=== PATIENT | male | born 1955 | race Caucasian/White ===

== ENCOUNTER 2017-01-14 06:31 | Day surgery (SDC) | payer BC ==
[2017-01-12 08:27] VITALS: BMI 44.7
[~2017-01-14 06:31] MED LIST: ALPRAZolam 0.25 MG TAB PO PRN; ALPRAZolam 0.5 MG TAB PO PRN; ASPIRIN 325 MG TAB PO STA; ATORVASTATIN 80 MG TAB PO STA; NITROGLYCERIN SL TABS 0.4 MG TAB SUBLINGUAL PRN; SODIUM CHLORIDE 0.9% 1,000 ML in EMPTY BAG 1 BAG IV ONE
[2017-01-14 06:59] LABS: Glucose,Whole Blood 166 mg/dL (75-99)
[2017-01-14 07:30] VITALS: PULSE 67; TEMP 98.6
[2017-01-14] MEDS ORDERED: HEPARIN SODIUM 1,000 UNIT/ML VIAL ONE (07:42)
[2017-01-14] MEDS ORDERED: VERAPAMIL 2.5 MG/ML 2 ML AMP ONE (07:42)
[2017-01-14] MEDS ORDERED: MIDAZOLAM 2 MG/2 ML VIAL ONE (07:42)
[2017-01-14] MEDS ORDERED: SODIUM CHLORIDE 0.9% (PF) 10 ML VIAL ONE (07:42)
[2017-01-14] MEDS ORDERED: LIDOCAINE 2% INJ 20 MG/ML (20 ML MDV) ONE (07:43)
[2017-01-14] MEDS ORDERED: diphenhydrAMINE 50 MG/ML 1 ML VIAL ONE (07:43)
[2017-01-14] MEDS ORDERED: MIDAZOLAM 2 MG/2 ML VIAL IVP ONE (07:58)
[2017-01-14] MEDS ORDERED: LIDOCAINE 2% INJ 20 MG/ML SQ ONE (07:59)
[2017-01-14] MEDS ORDERED: VERAPAMIL SYRINGE (5 MG/10 ML) INTRAARTER ONE ×2 (08:01→08:41)
[2017-01-14] MEDS ORDERED: HEPARIN SODIUM 1,000 UNIT/ML VIAL IV ONE (08:03)
[2017-01-14] MEDS ORDERED: SODIUM CHLORIDE 0.9% 1,000 ML IV ONE (08:05)
[2017-01-14] MEDS ORDERED: HYDROmorphone 2 MG/ML 1 ML SYRINGE ONE ×2 (08:24→08:25)
[2017-01-14] MEDS ORDERED: BIVALIRUDIN BOLUS 250 MG/50 ML IV ONE (08:24)
[2017-01-14] MEDS ORDERED: HYDROmorphone 2 MG/ML 1 ML SYRINGE IVP ONE (08:26)
[2017-01-14] MEDS ORDERED: IOHEXOL 350 MG/ML 100 ML BOTTLE INJ ONE (08:43)
[2017-01-14] MEDS ORDERED: RX INFO: IV CONTRAST WAS GIVEN 1 EACH MISC MISCELLANE PRN (08:50)
[2017-01-14] MEDS ORDERED: BIVALIRUDIN 250 MG in SODIUM CHLORIDE 0.9% 50 ML IV ONE (08:50)
[2017-01-14] MEDS ORDERED: SODIUM CHLORIDE 0.9% 1,000 ML IV SCH (09:00)
--- NOTE | 2017-01-14 09:08 | LTR ---
January 14, 2017 GUY NICOLE MD RE: Reynaldo Rico Dear Guy: Mr. Reynaldo Rico underwent a heart catheterization which showed severe disease involving the distal left main coronary artery with severe in-stent restenosis involving the proximal LAD as well. With the location of the disease, I recommended coronary artery bypass grafting and the patient will be evaluated as an outpatient for CABG. I want to thank you for allowing us to participate in his care and please do not hesitate to call if you have any questions or concerns. Sincerely, JOSIANE RAGSDALE MD
[2017-01-14 09:17] LABS: Glucose,Whole Blood 171 mg/dL (75-99)
--- NOTE | 2017-01-14 09:17 | CC ---
DATE OF SERVICE: 01/14/2017 PERFORMING PHYSICIAN: Darshan Lopez MD, customs brokerage agent. PROCEDURE PERFORMED: 1. Selective right and left coronary angiogram. 2. Intravascular ultrasound (IVUS) of the left main coronary artery. INDICATION: This is a pleasant 61-year-old gentleman with a past medical history significant for coronary artery disease and prior stenting of the LAD and RCA in the past and diabetes was experiencing exertional dyspnea. He underwent a stress test as an outpatient, which showed lateral ischemia. In view of that, he was advised to undergo a heart catheterization. APPROACH: Right radial artery. COMPLICATIONS: None. LEVEL OF SEDATION: Moderate with sedation length of about 45 minutes. PROCEDURE DESCRIPTION: After obtaining an informed consent, the patient was brought to the cardiac nitriles lab technician. Right radial artery was cannulated using micropuncture technique and micropuncture wire passed easily. Then I placed 6-Wolof sheath in the right radial artery. Subsequently, I did selective right and left coronary angiogram using JR4 and JL3.5 catheters. After that, I decided to do an IVUS of the left main. Please see a separate paragraph for that. SELECTIVE CORONARY ANGIOGRAM: 1. The right coronary artery is a large-caliber vessel and it is a dominant vessel. The proximal RCA appeared to be angiographically normal. The mid RCA is stented and the stent is patent. The RCA distally appeared to have mild disease only and bifurcates into PDA and PLV branches; both are angiographically normal. 2. The left main is a large-caliber left main. The distal left main appeared to be diseased in the range of 50% to 60%. The left main bifurcates into the left circumflex, ramus intermedius, and left anterior descending artery. 3. The left circumflex: The proximal left circumflex appeared to have mild disease only. The mid left circumflex appeared to have mild disease only as well and gives rises into the first OM branch, which is a large-caliber vessel, seems to be angiographically normally. The circumflex distally appeared to be angiographically normal. 4. The ramus intermedius is a medium caliber vessel with mild disease in the proximal portion. 5. Left anterior descending artery: The proximal left anterior descending artery by the bifurcation of the first diagonal appeared to have severe in-stent restenosis in the range of 80%. The mid LAD appeared to have mild disease only and this is by the bifurcation of the second diagonal, which is a large-caliber vessel with disease proximally in the range of 80% to 90%. The LAD distally appeared to be angiographically normal. INTRAVASCULAR ULTRASOUND (IVUS) OF THE LEFT MAIN: Anticoagulation was initiated using Angiomax. Subsequently, I did engage the left main using JL3.5 guiding catheter. I wired the left main using a whisper wire, and wire was pushed to the LAD. I did intravascular ultrasound (IVUS) of the left main using manual pull back. The minimal lumen area of the left main came in to be a 4.8 sq mm. CONCLUSION: 1. Patent stent in the mid right coronary artery. 2. Severe distal left main coronary artery disease. 3. Severe in-stent restenosis involving the proximal left anterior descending artery. 4. Severe disease involving the second diagonal branch of the left anterior descending artery, which is a good caliber vessel. 5. Mild disease involving the left circumflex. POSTPROCEDURE MANAGEMENT: The patient will be evaluated for coronary artery bypass grafting.
[2017-01-14 10:51] LABS: Basophils % (A) 1 %; CH 31.2; CHCM 33.3; Eosinophils # (A) 0.1 k/uL (0-0.7); Eosinophils % (A) 3 %; HCT 37.1 % (39.0-53.0); HGB 12.6 gm/dL (13.0-17.5); Luc # (Auto) 0.18; Luc % (Auto) 4; Lymphocytes # (A) 1.5 k/uL (1.0-4.8); Lymphocytes % (A) 31 %; MCHC 33.9 g/dL (31.0-37.0); MCV 94.3 fL (80.0-100.0); Mean Platelet Volume 7.6; Monocytes # (A) 0.3 k/uL (0-1.0); Monocytes % (A) 6 %; Neutrophils # (A) 2.6 k/uL (1.3-7.7); Neutrophils % (A) 56 %; RBC 3.93 m/uL (4.30-5.90); RDW 13.8 % (11.5-15.5); WBC 4.7 k/uL (3.8-10.6); WBC (Perox) 5.08
[2017-01-14 10:53] LABS: ALT 38 U/L (21-72); AST 28 U/L (17-59); Alkaline Phosphatase 83 U/L (38-126); Anion Gap 11 mmol/L; Blood Urea Nitrogen 30 mg/dL (9-20); Calcium 9.2 mg/dL (8.4-10.2); Carbon Dioxide 28 mmol/L (22-30); Chloride 100 mmol/L (98-107); Cholesterol 136 mg/dL (<200); Glucose 267 mg/dL (74-99); HDL Cholesterol 37 mg/dL (40-60); Magnesium 1.5 mg/dL (1.6-2.3); Non-African American GFR(MDRD) >60 (>60 ml/min/1.73 sqM); Sodium 139 mmol/L (137-145); Total Bilirubin 0.7 mg/dL (0.2-1.3); Total Protein 7.2 g/dL (6.3-8.2); Triglycerides 213 mg/dL (<150)
[2017-01-14 10:54] LABS: INR 1.4 (<1.1); Partial Thromboplastin Time 51.9 sec (22.0-30.0); Prothrombin Time 13.7 sec (9.0-12.0)
[2017-01-14 11:22] LABS: Hepatitis B Surface Ag Index 0.08
[2017-01-14 11:26] LABS: Appearance,Urine Clear (Clear); Bilirubin,Urine Negative (Negative); Glucose,Urine (UA) 2+ (Negative); Ketones,Urine Negative (Negative); Leukocyte Esterase,Urine Negative (Negative); Nitrite,Urine Negative (Negative); PH, Urine 5.5 (5.0-8.0); Protein,Urine Negative (Negative); Specific Gravity,Urine 1.031 (1.001-1.035); UA Billing (MACRO vs. MICRO) CHEM; Urobilinogen,Urine <2.0 mg/dL (<2.0)
[2017-01-14 11:28] LABS: Hepatitis B Core IgM Index 0.04
[2017-01-14 11:39] LABS: Hepatitis C Virus IgG Index 0.73
[2017-01-14 11:46] LABS: Hepatitis C Virus IgG Ab Negative (Negative)
[2017-01-14] MEDS ORDERED: INSULN ASP PRT/INSULIN ASPART 100 UNIT/ML 10 ML VIAL SQ ONE (12:26)
[2017-01-14 12:27] LABS: Glucose,Whole Blood 261 mg/dL (75-99)
--- NOTE | 2017-01-14 12:50 | US ---
EXAMINATION TYPE: US carotid duplex BILAT DATE OF EXAM: 01/14/2017 12:32 PM COMPARISON: NONE CLINICAL HISTORY: pre-op cardiac surgery. EXAM MEASUREMENTS: RIGHT: Peak Systolic Velocity (PSV) cm/sec ----- Right CCA: 96.4 ----- Right ICA: 89.9 ----- Right ECA: 194.9 ICA/CCA ratio: 0.9 RIGHT: End Diastole cm/sec ----- Right CCA: 20.7 ----- Right ICA: 24.7 ----- Right ECA: 20.7 LEFT: Peak Systolic Velocity (PSV) cm/sec ----- Left CCA: 111.3 ----- Left ICA: 132.3 ----- Left ECA: 216.9 ICA/CCA ratio: 1.2 LEFT: End Diastole cm/sec ----- Left CCA: 24.1 ----- Left ICA: 32.1 ----- Left ECA: 22.9 VERTEBRALS (direction of flow): Right Vertebral: Antegrade Left Vertebral: Antegrade TECHNOLOGIST IMPRESSION: Mild to moderate plaque noted bilateral bifurcations. Increased velocities right ECA, left ICA, left ECA IMPRESSION: 1. 50-69% by diameter stenosis of the proximal left ICA. 2. Elevated flow velocities, both ECAs. Criteria for Assigning % of Stenosis / Diameter reduction (Estimation based on the indirect measurements of the internal carotid artery velocities (ICA PSV). 1. Normal (no stenosis)=ICA PSV < 125 cm/s: ratio < 2.0: ICA EDV<40 cm/s. 2. Less than 50% stenosis=ICA PSV < 125 cm/s: ratio < 2.0: ICA EDV<40 cm/s. 3. 50 to 69% stenosis=ICA PSV of 125 to 230 cm/s: ration 2.0 ? 4.0: ICA EDV 40-100 cm/s. 4. Greater than 70% stenosis to near occlusion= ICA PSV > 230 cm/s: ratio > 4.0: ICA EDV > 100 cm/s. 5. Near occlusion= ICA PSV velocities may be low or undetectable: variable ratio and ICA EDV. 6. Total occlusion=unable to detect flow.
--- NOTE | 2017-01-14 12:50 | P.GSCN ---
History of Present Illness Consult date: 01/14/17 Reason for Consult: evaluation for coronary artery bypass grafting Requesting physician: Darshan Lopez History of present illness: 61s old gentleman with past medical history of diabetes, hypertension, hyperlipidemia, positive family history of cardiac catheterization, obesity who is status post prior stenting to his mid RCA and proximal LAD with recurrent shortness of breath on exertion. Patient underwent a stress test that showed reversible ischemia in the distal lateral arango. Cardiac catheterization today shows progression of the distal left main disease by IVUS and proximal LAD stent restenosis. The RCA stent seems to be patent. We were asked to evaluate patient for potential surgical visualization Review of Systems - Constitutional Denies fever, Denies weight loss - EENT Eyes: denies blurred vision Ears, nose, mouth and throat: Denies dysphagia - Cardiovascular Denies chest pain, Denies shortness of breath - Respiratory Denies cough, Denies 7 - Genitourinary Denies dysuria, Denies hematuria Past Medical History Past Medical History: Diabetes Mellitus, Hyperlipidemia, Hypertension, Myocardial Infarction ([place]), Osteoarthritis ([place]) Additional Past Medical History / Comment(s): IDDM, arthritis bilateral hand's fingers, bilateral shoulders, L knee, bilateral ankles, low back pain. Last Myocardial Infarction Date:: 01/07/12 History of Any Multi-Drug Resistant Organisms: MRSA Year Discovered:: 2012 MDRO Source:: abdomen Past Surgical History: Heart Catheterization With Stent, Hernia Repair, Tonsillectomy Additional Past Surgical History / Comment(s): 01/07/12 cardiac stent x2, umbilical hernia repair, L knee arthroscopy, Past Anesthesia/Blood Transfusion Reactions: Motion Sickness, Postoperative Nausea & Vomiting (PONV) Date of Last Stent Placement:: 01/07/12 Past Psychological History: No Psychological Hx Reported Additional Psychological History / Comment(s): Pt resides with his spouse. He uses no assistive device. 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 Smoking Status: Never smoker Past Alcohol Use History: Rare Past Drug Use History: None Reported - Past Family History Father Family Medical History: Cancer, COPD, CVA/TIA Additional Family Medical History / Comment(s): Prostate cancer, heart problems. Father of a CVA at age 78yrs. Mother Family Medical History: Diabetes Mellitus, Myocardial Infarction ([place]) Additional Family Medical History / Comment(s): Mother of a massive [place] at the age of 62 yrs. Medications and Allergies Home Medications Medication Instructions Recorded Confirmed Type Aspirin 325 mg PO DAILY 04/09/16 01/12/17 History Insulin Aspart Protam & Aspart 90 unit SQ BID 04/09/16 01/12/17 History [NovoLOG MIX 70-30 Flexpen] Metoprolol Tartrate [Lopressor] 50 mg PO DAILY 04/09/16 01/12/17 History Red Yeast Rice 600 mg PO DAILY 04/09/16 01/12/17 History Valsartan [Diovan] 160 mg PO DAILY 04/09/16 01/12/17 History sitaGLIPtin [Januvia] 100 mg PO DAILY 04/09/16 01/12/17 History Atorvastatin [Lipitor] 80 mg PO DAILY 01/12/17 01/12/17 History Calcium Carbonate [Calcium] 600 mg PO DAILY 01/12/17 01/12/17 History Fish Oil/Dha/Epa [Fish Oil 1,200 1 each PO DAILY 01/12/17 01/12/17 History mg Fish Oil] Multivitamins, Thera [Multivitamin] 1 tab PO DAILY 01/12/17 01/12/17 History Allergies Allergy/AdvReac Type Severity Reaction Status Date / Time No Known Allergies Allergy Verified 01/12/17 08:20 Surgical - Exam Vital Signs Temp Pulse Resp BP Pulse Ox 98.6 F 67 20 149/69 95 01/14/17 07:20 01/14/17 07:20 01/14/17 07:20 01/14/17 07:20 01/14/17 07:20 - General obese - Neck no masses, trachea midline - Respiratory normal respiratory effort, clear to auscultation - Cardiovascular Rhythm: regular Heart Sounds: normal: S1, S2 - Abdomen Abdomen: soft, non tender, no guarding, no rigid, no rebound - Rectum DEFERRED - Integumentary no rash, no abnormal pigmentation - Neurologic no disoriented, no combative - Psychiatric oriented to time, oriented to person, oriented to place, speech is normal, memory intact PATIENT HAS AN EQUIVOCAL LEFT MODIFIED BRANDON'S TEST.He had a right radial cath. PATIENTHAS VENOUS STASIS CHANGES IN BOTH LOWER EXTREMITIES. NO OBVIOUS VARICOSE VEINS. 2+ DISTAL PULSES Results - Labs 01/14/17 10:28 01/14/17 10:28 Abnormal Lab Results - Last 24 Hours (Table) 01/14/17 01/14/17 01/14/17 Range/Units 06:55 09:13 10:28 RBC 3.93 L (4.30-5.90) m/uL Hgb 12.6 L (13.0-17.5) gm/dL Hct 37.1 L (39.0-53.0) % Plt Count 125 L (150-450) k/uL PT (9.0-12.0) sec APTT (22.0-30.0) sec BUN (9-20) mg/dL Glucose (74-99) mg/dL POC Glucose (mg/dL) 166 H 171 H (75-99) mg/dL Hemoglobin A1c (4.2-6.1) % Magnesium (1.6-2.3) mg/dL Triglycerides (<150) mg/dL HDL Cholesterol (40-60) mg/dL Urine Glucose (UA) (Negative) 01/14/17 01/14/17 01/14/17 Range/Units 10:28 10:28 10:28 RBC (4.30-5.90) m/uL Hgb (13.0-17.5) gm/dL Hct (39.0-53.0) % Plt Count (150-450) k/uL PT 13.7 H (9.0-12.0) sec APTT 51.9 H (22.0-30.0) sec BUN 30 H (9-20) mg/dL Glucose 267 H (74-99) mg/dL POC Glucose (mg/dL) (75-99) mg/dL Hemoglobin A1c 8.3 H (4.2-6.1) % Magnesium 1.5 L (1.6-2.3) mg/dL Triglycerides 213 H (<150) mg/dL HDL Cholesterol 37 L (40-60) mg/dL Urine Glucose (UA) (Negative) 01/14/17 01/14/17 Range/Units 10:48 12:23 RBC (4.30-5.90) m/uL Hgb (13.0-17.5) gm/dL Hct (39.0-53.0) % Plt Count (150-450) k/uL PT (9.0-12.0) sec APTT (22.0-30.0) sec BUN (9-20) mg/dL Glucose (74-99) mg/dL POC Glucose (mg/dL) 261 H (75-99) mg/dL Hemoglobin A1c (4.2-6.1) % Magnesium (1.6-2.3) mg/dL Triglycerides (<150) mg/dL HDL Cholesterol (40-60) mg/dL Urine Glucose (UA) 2+ H (Negative) Diabetes panel 01/14/17 01/14/17 Range/Units 10:28 10:28 Sodium 139 (137-145) mmol/L Potassium 5.0 (3.5-5.1) mmol/L Chloride 100 (98-107) mmol/L Carbon Dioxide 28 (22-30) mmol/L BUN 30 H (9-20) mg/dL Creatinine 1.22 (0.66-1.25) mg/dL Glucose 267 H (74-99) mg/dL Hemoglobin A1c 8.3 H (4.2-6.1) % Calcium 9.2 (8.4-10.2) mg/dL AST 28 (17-59) U/L ALT 38 (21-72) U/L Alkaline Phosphatase 83 (38-126) U/L Total Protein 7.2 (6.3-8.2) g/dL Albumin 4.0 (3.5-5.0) g/dL Triglycerides 213 H (<150) mg/dL HDL Cholesterol 37 L (40-60) mg/dL Thyroid panel 01/14/17 Range/Units 10:28 TSH 2.230 (0.465-4.680) mIU/L Calcium panel 01/14/17 Range/Units 10:28 Calcium 9.2 (8.4-10.2) mg/dL Albumin 4.0 (3.5-5.0) g/dL Pituitary panel 01/14/17 Range/Units 10:28 Sodium 139 (137-145) mmol/L Potassium 5.0 (3.5-5.1) mmol/L Chloride 100 (98-107) mmol/L Carbon Dioxide 28 (22-30) mmol/L BUN 30 H (9-20) mg/dL Creatinine 1.22 (0.66-1.25) mg/dL Glucose 267 H (74-99) mg/dL Calcium 9.2 (8.4-10.2) mg/dL TSH 2.230 (0.465-4.680) mIU/L Adrenal panel 01/14/17 Range/Units 10:28 Sodium 139 (137-145) mmol/L Potassium 5.0 (3.5-5.1) mmol/L Chloride 100 (98-107) mmol/L Carbon Dioxide 28 (22-30) mmol/L BUN 30 H (9-20) mg/dL Creatinine 1.22 (0.66-1.25) mg/dL Glucose 267 H (74-99) mg/dL Calcium 9.2 (8.4-10.2) mg/dL Total Bilirubin 0.7 (0.2-1.3) mg/dL AST 28 (17-59) U/L ALT 38 (21-72) U/L Alkaline Phosphatase 83 (38-126) U/L Total Protein 7.2 (6.3-8.2) g/dL Albumin 4.0 (3.5-5.0) g/dL - Imaging Additional studies: PATIENT HAD A 2-d ECHO AT [facility] OFFICE IN april 2016 THAT SHOWED A 55% EJECTION FRACTION. hE ALSO HAD CAROTID DUPLEX IN may 2016 THAT SHOWED MILD DISEASE. rECENT STRESS TEST SHOWS LATERAL WALL ISCHEMIA. CARDIAC CATHETERIZATION SHOWS SIGNIFICANT LEFT MAIN DISEASE BY IVUS, SIGNIFICANT SECOND DIAGONAL PROXIMALLY, PATENT RIGHT CORONARY SYSTEM, GOOD SIZE RAMUS, SMALL OBTUSE MARGINAL OUT OF THE GROOVE. Assessment and Plan Plan: 61S OLD GENTLEMAN WITH ABOVE RISK FACTOR WITH SIGNIFICANT LEFT MAIN DISEASE WITH OVERALL PRESERVED LEFT VENTRICLE FUNCTION. pATIENT CANDIDATE FOR CORONARY ARTERY BYPASS GRAFTING TO HIS lad, RAMUS, SECOND DIAGONAL ARTERY. wE WILL ASSESS THE FIRST OBTUSE MARGINAL ARTERY FOR BYPASS WITH DEBILITY ALTHOUGHi BELIEVE IS PROBABLY SMALL. tHE rca SYSTEM DOES NOT NEED TO BE BYPASSED. wE'LL BE ALSO PERFORMING STERNAL PLATING IN VIEW OF HIS OBESITY. pATIENT WILL BE SCHEDULED FOR ELECTIVE SURGERY AND WILL STOP eFFIENT 5 DAYS BEFORE SURGERY. tHANK YOU [facility]. [facility] FOR THE PRIVILEGE OF THIS CONSULT
--- NOTE | 2017-01-14 13:20 | XR ---
EXAMINATION TYPE: XR chest 2V DATE OF EXAM: 01/14/2017 1:15 PM HISTORY: PreOp Cardiac Surgery. REFERENCE: Previous study dated 05/06/2016. FINDINGS: The patient has taken a relatively poor inspiration. Allowing for this, lungs appear clear. Pleural space are clear. The heart is not enlarged. IMPRESSION: NO ACUTE INTRATHORACIC ABNORMALITY.
[2017-01-14 14:47] VITALS: RESP 20
[2017-01-14 14:49] VITALS: BP 147/70
--- NOTE | 2017-01-19 11:15 | P.ARTDOP ---
Arterial Doppler LOWER EXTREMITY ARTERIAL DOPPLER: DATE OF SERVICE: 01/14/2017 Reason for study: Pre-CABG. Doppler waveforms: Multiphasic bilaterally throughout. Pulse volume recording: Normal configuration. Pressure gradients: None. Ankle-brachial indices: Greater than 1 bilaterally. Toe pressures: 116 on the right, 101 on the left Impression: Normal study.
--- NOTE | 2017-01-19 11:18 | P.VSCSTY ---
Greater Saphenous Vein Mapping This is bilateral lower extremity greater saphenous vein mapping. Date of service 01/14/2017 Vein quality and ultrasound appearance it is stated that the patient had bilateral lower leg vein stripping. We do see saphenous vein throughout bilaterally. On both sides there is significant branching, especially in the lower legs.. Vein size groin right 8.9 x 11.3 groin left 10.9 x 11.3 High thigh right to 4.1 x 4.6 high thigh left 4.1 x 4.3 Mid thigh right 4.8 x 4.9 mid thigh left 4.3 x 5.3 Above-knee right 4.1 x 4.7 above- knee left 4.5 x 4.8 Below knee right 2.8 x 3.2 below-knee left 4.0 x 4.6 Mid calf right 2.3 x 3.2 mid calf left 2.1 x 2.6 Ankle right 2.4 x 3.0 ankle left 2.7 x 3.4 Impression appears to be of bilateral usable greater saphenous vein. Clinical correlation strongly recommended. This is especially in light of the history of a possible bilateral lower extremity vein harvesting..
== END 2017-01-14 14:45 | disposition home or self-care (01) ==
LOC: CATHCVL 06:31
PROVIDERS: ATTEND Internal Medicine Interventional Cardiology
DX: R94.39 Abnormal result of other cardiovascular function study (principal); I25.10 Atherosclerotic heart disease of native coronary artery without angina pectoris; T82.855A Stenosis of coronary artery stent, initial encounter; I65.22 Occlusion and stenosis of left carotid artery; I25.2 Old myocardial infarction; I10 Essential (primary) hypertension; Z82.49 Family history of ischemic heart disease and other diseases of the circulatory system; E78.5 Hyperlipidemia, unspecified; E66.3 Overweight; Z68.41 Body mass index [BMI] 40.0-44.9, adult; E11.9 Type 2 diabetes mellitus without complications; Z79.4 Long term (current) use of insulin; Z79.84 Long term (current) use of oral hypoglycemic drugs; Z79.82 Long term (current) use of aspirin; Z79.899 Other long term (current) drug therapy; Z88.8 Allergy status to other drugs, medicaments and biological substances
CPT/HCPCS: 99152; 99153 ×2; 94150; 92978; 93454; 83880; 80061; 80053; 80074; 84443; 83735; 85025; 85610; 85730; 81003; 87070; 87086; 71020; 93970; 93923; 93880; C1769; C1887 ×2; C1753; C1894; J2001; J2250; J1170; Q9967; J1644; J0583; 83036; 86850; 86900; 86901; 86920; 92979

== ENCOUNTER 2017-01-19 06:35 | Inpatient (IN) | payer BC ==
[2017-01-14 11:25] LABS: Hemoglobin A1C 8.3 % (4.2-6.1)
[~2017-01-19 06:35] MED LIST changes: +ALBUMIN HUMAN 25% 50 ML IV ONE; +ALBUMIN HUMAN 5% 500 ML IVPB ONE; -ALPRAZolam 0.25 MG TAB PO PRN; -ALPRAZolam 0.5 MG TAB PO PRN; +ASPIRIN 325 MG TAB PO ONE; -ASPIRIN 325 MG TAB PO STA; +ATORVASTATIN 10 MG TAB PO ONE; -ATORVASTATIN 80 MG TAB PO STA; +CALCIUM CHLORIDE 100 MG/ML 10 ML SYRINGE IV ONE; +CHLORHEXIDINE GLUCONATE 15 ML CUP MUCOUS MEM ONE; +CLEVIDIPINE BUTYRATE 25 MG in EMPTY BAG 1 BAG IV ONE; +HEPARIN SODIUM 1,000 UNIT/ML VIAL IV ONE; +HEPARIN SODIUM,PORCINE 5,000 UNIT in SODIUM CHLORIDE 0.9% 500 ML IV ONE; +INSULIN REGULAR 100 UNIT in SODIUM CHLORIDE 0.9% 100 ML IV ONE; +LACTATED RINGERS 1,000 ML IV ONE; +MAGNESIUM SULFATE MG 500 MG/ML VIAL IV ONE; +METOPROLOL TARTRATE 25 MG TAB PO ONE; +MUPIROCIN 2% OINT 22 GM TUBE NASAL ONE; -NITROGLYCERIN SL TABS 0.4 MG TAB SUBLINGUAL PRN; +NITROGLYCERIN-D5W PMX 25 MG/250 ML BTL IV ONE; +NITROGLYCERIN-D5W PMX 50 MG in DEXTROSE/WATER 1 250ML.BAG IV ONE; +NOREPINEPHRINE 4 MG in SODIUM CHLORIDE 0.9% 250 ML IV ONE; +PAPAVERINE 360 MG in SODIUM CHLORIDE 0.9% 90 ML IV ONE; +PHENYLEPHRINE 40 MG in SODIUM CHLORIDE 0.9% 250 ML IV ONE; +PHENYLEPHRINE-0.9% NACL SYG 1 MG/10 ML SYRINGE IV ONE; +PROPOFOL 50 ML IV ONE; +PROTAMINE SULFATE 10 MG/ML 25 ML VIAL IV ONE; +PROTAMINE SULFATE 250 MG in EMPTY BAG 1 BAG IV ONE; +SODIUM BICARB 8.4% 50 ML SYR (1 MEQ/ML) IV ONE; +SODIUM CHLORIDE 0.9% 1,000 ML IV ONE; -SODIUM CHLORIDE 0.9% 1,000 ML in EMPTY BAG 1 BAG IV ONE; +ceFAZolin 1,000 MG in SODIUM CHLORIDE 0.9% IRRIGATIO 1,000 ML IRRIGATION ONE; +ceFAZolin 2,000 MG in SODIUM CHLORIDE 0.9% 30 ML IVPB ONE; +ceFAZolin 3 GM in SODIUM CHLORIDE 0.9% 30 ML IVPB ONE
[2017-01-19 07:51] LABS: Glucose,Whole Blood 112 mg/dL (75-99)
[2017-01-19 08:58] LABS: Basophils % (A) 1 %; CH 31.7; Eosinophils # (A) 0.1 k/uL (0-0.7); Eosinophils % (A) 3 %; HCT 36.9 % (39.0-53.0); HDW 2.77; HGB 12.4 gm/dL (13.0-17.5); Luc # (Auto) 0.21; Luc % (Auto) 4; Lymphocytes # (A) 1.5 k/uL (1.0-4.8); Lymphocytes % (A) 26 %; MCH 31.6 pg (25.0-35.0); MCHC 33.7 g/dL (31.0-37.0); MCV 93.6 fL (80.0-100.0); Mean Platelet Volume 7.8; Monocytes # (A) 0.3 k/uL (0-1.0); Monocytes % (A) 6 %; Neutrophils # (A) 3.5 k/uL (1.3-7.7); Neutrophils % (A) 61 %; RBC 3.94 m/uL (4.30-5.90); RDW 13.7 % (11.5-15.5); WBC 5.7 k/uL (3.8-10.6); WBC (Perox) 5.91
[2017-01-19 09:04] LABS: INR 1.1 (<1.1)
[2017-01-19] MEDS ORDERED: HEPARIN SODIUM 1,000 UNIT/ML VIAL ONE (09:13)
[2017-01-19] MEDS ORDERED: MIDAZOLAM 2 MG/2 ML VIAL ONE (09:13)
[2017-01-19] MEDS ORDERED: VECURONIUM 10 MG VIAL IV ONE (09:13)
[2017-01-19] MEDS ORDERED: HEPARIN SODIUM,PORCINE 5,000 UNIT/ML 1 ML VIAL ONE (09:13)
[2017-01-19] MEDS ORDERED: HEPARIN SODIUM,PORCINE 10,000 UNIT/ML 1 ML VIAL ONE (09:13)
[2017-01-19] MEDS ORDERED: ePHEDrine 50 MG/ML 1 ML AMP ONE (09:13)
[2017-01-19] MEDS ORDERED: PROPOFOL 10 MG/ML 20 ML VIAL IV ONE (09:13)
[2017-01-19] MEDS ORDERED: CALCIUM CHLORIDE 100 MG/ML 10 ML SYRINGE ONE (09:13)
[2017-01-19] MEDS ORDERED: PROTAMINE SULFATE 10 MG/ML 25 ML VIAL IV ONE (09:13)
[2017-01-19] MEDS ORDERED: SUCCINYLCHOLINE CHLORIDE VIAL 200 MG/10 ML VIAL IV ONE (09:13)
[2017-01-19] MEDS ORDERED: ELECTROLYTE-R (PH 7.4) 1,000 ML IV.SOLN IV ONE (09:13)
[2017-01-19] MEDS ORDERED: ALBUMIN HUMAN 5% 500 ML VIAL IVPB ONE (09:13)
[2017-01-19] MEDS ORDERED: PHENYLEPHRINE-0.9% NACL SYG 1 MG/10 ML SYRINGE ONE (09:13)
[2017-01-19] MEDS ORDERED: MAGNESIUM SULFATE 4 MEQ/ML 2 ML VIAL ONE (09:13)
[2017-01-19] MEDS ORDERED: SODIUM CHLORIDE 0.9% IRRIG 1,000 ML BTL IRRIGATION ONE (09:13)
[2017-01-19] MEDS ORDERED: fentaNYL (PF) 50 MCG/ML 50 ML VIAL ONE (09:13)
[2017-01-19] MEDS ORDERED: WATER FOR INJECTION, STERILE 10 ML VIAL IV ONE (09:13)
[2017-01-19] MEDS ORDERED: LIDOCAINE 2% SYG (PF) 100 MG/5 ML ONE (09:13)
[2017-01-19] MEDS ORDERED: MAGNESIUM SULFATE IVPB ONE ×11 (09:30→10:15)
[2017-01-19] MEDS ORDERED: DEXTROSE 5% IVPB ONE ×6 (09:30)
[2017-01-19] MEDS ORDERED: WATER IVPB ONE ×6 (09:30)
[2017-01-19] MEDS ORDERED: MANNITOL 25% 12.5 GM/50 ML VIAL IV ONE (09:30)
[2017-01-19] MEDS ORDERED: POTASSIUM CHLORIDE IVPB ONE ×11 (09:30→10:15)
[2017-01-19 09:56] LABS: Glucose,Whole Blood 147 mg/dL (75-99)
[2017-01-19] MEDS ORDERED: DEXTROSE 5% IN WATER 1,000 ML with POTASSIUM CHLORIDE 25 MEQ, SODIUM CHLORIDE 4MEQ/ML V... IV SCH ×6 (10:00)
[2017-01-19] MEDS ORDERED: DEXTROSE 5% IN WATER 1,000 ML with POTASSIUM CHLORIDE 110 MEQ, MAGNESIUM SULFATE 16 MEQ... IV SCH ×5 (10:00)
[2017-01-19] MEDS ORDERED: [UNRECOGNIZED DRUG - OTHER] IVPB ONE ×5 (10:15)
[2017-01-19] MEDS ORDERED: SODIUM BICARB IVPB ONE ×5 (10:15)
[2017-01-19 11:32] LABS: Glucose,Whole Blood 142 mg/dL (75-99)
[2017-01-19 12:15] LABS: Glucose,Whole Blood 149 mg/dL (75-99)
[2017-01-19 12:40] LABS: Glucose,Whole Blood 144 mg/dL (75-99)
[2017-01-19] MEDS ORDERED: AMINOCAPROIC ACID 250 MG/ML 20 ML VIAL IV ONE (13:30)
[2017-01-19] MEDS ORDERED: AMINOCAPROIC ACID 5,000 MG in DEXTROSE 5% IN WATER 50 ML IV ONE ×2 (13:30)
[2017-01-19 13:48] LABS: Glucose,Whole Blood 145 mg/dL (75-99)
[2017-01-19 14:18] LABS: Glucose,Whole Blood 170 mg/dL (75-99)
[2017-01-19 14:52] LABS: Glucose,Whole Blood 185 mg/dL (75-99)
[2017-01-19] MEDS ORDERED: ONDANSETRON 4 MG/2 ML VIAL IVP PRN (15:42)
[2017-01-19] MEDS ORDERED: ALBUMIN HUMAN 5% 250 ML in EMPTY BAG 1 BAG IVPB PRN (15:42)
[2017-01-19] MEDS ORDERED: BENZOCAINE/MENTHOL LOZENG 1 EACH LOZENGE MUCOUS MEM PRN (15:42)
[2017-01-19] MEDS ORDERED: Potassium Replacement Protocol 1 EACH MISC MISCELLANE PRN (15:42)
[2017-01-19] MEDS ORDERED: Magnesium Replacement Protocol 1 EACH MISC MISCELLANE PRN ×2 (15:42→17:31)
[2017-01-19] MEDS ORDERED: METOCLOPRAMIDE 5 MG/ML 2 ML VIAL IVP PRN (15:42)
[2017-01-19] MEDS ORDERED: Phosphorus Replacement Protoco 1 EACH MISC MISCELLANE PRN (15:42)
[2017-01-19] MEDS ORDERED: CALCIUM GLUCONATE 2,000 MG in SODIUM CHLORIDE 0.9% 100 ML IVPB PRN (15:42)
[2017-01-19] MEDS ORDERED: PROPOFOL 500 MG in EMPTY BAG 1 BAG IV SCH (15:45)
[2017-01-19 15:57] LABS: Glucose,Whole Blood 164 mg/dL (75-99)
[2017-01-19] MEDS ORDERED: PHENYLEPHRINE 40 MG in SODIUM CHLORIDE 0.9% 250 ML IV SCH (16:00)
[2017-01-19 16:27] LABS: Glucose,Whole Blood 157 mg/dL (75-99)
[2017-01-19 16:33] LABS: Basophils % (A) 1 %; CH 31.5; CHCM 33.5; Eosinophils % (A) 0 %; HDW 2.76; Luc % (Auto) 2; Lymphocytes # (A) 0.8 k/uL (1.0-4.8); Lymphocytes % (A) 12 %; MCH 31.4 pg (25.0-35.0); MCHC 33.2 g/dL (31.0-37.0); MCV 94.6 fL (80.0-100.0); Mean Platelet Volume 9.3; Monocytes # (A) 0.4 k/uL (0-1.0); Monocytes % (A) 6 %; Neutrophils # (A) 5.3 k/uL (1.3-7.7); Neutrophils % (A) 80 %; RBC 2.85 m/uL (4.30-5.90); RDW 13.7 % (11.5-15.5); WBC 6.6 k/uL (3.8-10.6); WBC (Perox) 6.65
[2017-01-19 16:43] LABS: INR 1.2 (<1.1); Partial Thromboplastin Time 27.7 sec (22.0-30.0); Prothrombin Time 12.2 sec (9.0-12.0)
[2017-01-19 16:48] LABS: Ionized Calcium 4.8 mg/dL (4.5-5.3)
--- NOTE | 2017-01-19 16:52 | XR ---
EXAMINATION TYPE: XR chest 1V portable DATE OF EXAM: 01/19/2017 4:43 PM CLINICAL HISTORY: Difficulty breathing, post open cardiac surgery TECHNIQUE: Single AP portable supine view of the chest is obtained. COMPARISON: Chest x-ray from March 16, 2017. FINDINGS: Exam is suboptimal due to portable technique and patient's large body habitus. There is new endotracheal tube with tip at aortic knob level, approximately 2 cm above the cory, recommend pull ing back 2 to 3 cm. There is new right internal jugular Marengo-Divina catheter with tip not well identifi ed to assess. New sternal wires are present. There is new moderate central vascular congestion. There is suggestion of new cardiomegaly. There are bilateral chest tubes. No large pleural effusion or pne umothorax is seen. There is left basilar horizontal atelectasis above the diaphragm. Low lung volumes are present. Osseous structures are intact. IMPRESSION: 1. Endotracheal tube is roughly 2 cm above the cory, recommend pulling back 2 to 3 cm. 2. Tip of Marengo-Divina catheter is obscured by body habitus and new central opacity/congestion and is no t successfully visualized. 3. New cardiomegaly with moderate central vascular congestion.
[2017-01-19 17:00] LABS: ALT 47 U/L (21-72); AST 46 U/L (17-59); Alkaline Phosphatase 35 U/L (38-126); Anion Gap 10 mmol/L; Blood Urea Nitrogen 27 mg/dL (9-20); Calcium 8.2 mg/dL (8.4-10.2); Carbon Dioxide 25 mmol/L (22-30); Chloride 105 mmol/L (98-107); Glucose 143 mg/dL (74-99); Magnesium 1.6 mg/dL (1.6-2.3); Non-African American GFR(MDRD) >60 (>60 ml/min/1.73 sqM); Potassium 4.9 mmol/L (3.5-5.1); Sodium 140 mmol/L (137-145); Total Bilirubin 0.9 mg/dL (0.2-1.3); Total Protein 5.6 g/dL (6.3-8.2)
[2017-01-19 17:02] LABS: ABG Base Excess -0.7 mmol/L; ABG HCO3 25 mmol/L (21-25); ABG PCO2 49 mmHg (35-45); ABG PH 7.32 (7.35-7.45); ABG PO2 279 mmHg (83-108); ABG TCO2 26 mmol/L (19-24)
[2017-01-19 17:04] LABS: Glucose,Whole Blood 143 mg/dL (75-99)
[2017-01-19] MEDS: IPRATROPIUM-ALBUTEROL 3 ML NEB INHALATION SCH ×2 (17:12→21:07)
[2017-01-19] MEDS: MAGNESIUM SULFATE-D5W PMX 1 GM in DEXTROSE/WATER 1 100ML.BAG IVPB SCH ×2 (18:12→19:21)
[2017-01-19 18:13] LABS: Glucose,Whole Blood 141 mg/dL (75-99)
[2017-01-19] MEDS: CLEVIDIPINE BUTYRATE 25 MG in EMPTY BAG 1 BAG IV SCH (18:13)
[2017-01-19] MEDS: LACTATED RINGERS 1,000 ML IV SCH (18:15)
[2017-01-19] MEDS: NITROGLYCERIN-D5W PMX 50 MG in DEXTROSE/WATER 1 250ML.BAG IV SCH ×2 (18:15→19:00)
[2017-01-19] MEDS: ceFAZolin 3 GM in SODIUM CHLORIDE 0.9% 100 ML IVPB SCH (18:40)
[2017-01-19] MEDS: INSULIN REGULAR 100 UNIT in SODIUM CHLORIDE 0.9% 100 ML IV SCH (19:00)
[2017-01-19 19:04] LABS: Glucose,Whole Blood 158 mg/dL (75-99)
[2017-01-19 19:47] LABS: Basophils % (A) 0 %; CH 31.4; CHCM 33.5; Eosinophils % (A) 0 %; HCT 27.3 % (39.0-53.0); HDW 2.74; Luc # (Auto) 0.09; Luc % (Auto) 2; Lymphocytes # (A) 0.6 k/uL (1.0-4.8); Lymphocytes % (A) 11 %; MCH 31.1 pg (25.0-35.0); MCHC 33.1 g/dL (31.0-37.0); MCV 94.1 fL (80.0-100.0); Mean Platelet Volume 9.1; Monocytes # (A) 0.3 k/uL (0-1.0); Monocytes % (A) 6 %; Neutrophils # (A) 4.2 k/uL (1.3-7.7); Neutrophils % (A) 82 %; RDW 13.9 % (11.5-15.5); WBC 5.2 k/uL (3.8-10.6)
[2017-01-19 20:16] LABS: Glucose,Whole Blood 165 mg/dL (75-99)
[2017-01-19] MEDS: ACETAMINOPHEN IV (For NPO) 1,000 MG in EMPTY BAG 1 BAG IVPB SCH (20:24)
[2017-01-19] MEDS: MORPHINE SULFATE 2 MG/ML SYRINGE IVP PRN (20:31)
[2017-01-19 21:02] LABS: Glucose,Whole Blood 165 mg/dL (75-99)
[2017-01-19] MEDS: MUPIROCIN 2% OINT 22 GM TUBE NASAL SCH (21:49)
[2017-01-19 22:09] LABS: Glucose,Whole Blood 161 mg/dL (75-99)
[2017-01-19 23:06] LABS: Glucose,Whole Blood 170 mg/dL (75-99)
[2017-01-19 23:15] LABS: ABG Base Excess -0.8 mmol/L; ABG HCO3 24 mmol/L (21-25); ABG PCO2 44 mmHg (35-45); ABG PH 7.35 (7.35-7.45); ABG PO2 75 mmHg (83-108); ABG TCO2 25 mmol/L (19-24)
[2017-01-19 23:16] LABS: Basophils % (A) 1 %; CH 31.5; CHCM 33.1; Eosinophils % (A) 0 %; HCT 29.3 % (39.0-53.0); HDW 2.75; HGB 9.5 gm/dL (13.0-17.5); Luc # (Auto) 0.14; Luc % (Auto) 2; Lymphocytes # (A) 0.9 k/uL (1.0-4.8); Lymphocytes % (A) 12 %; MCH 30.9 pg (25.0-35.0); MCHC 32.3 g/dL (31.0-37.0); MCV 95.6 fL (80.0-100.0); Monocytes # (A) 0.3 k/uL (0-1.0); Monocytes % (A) 4 %; Neutrophils % (A) 81 %; RBC 3.06 m/uL (4.30-5.90); WBC 7.4 k/uL (3.8-10.6); WBC (Perox) 7.12
[2017-01-20] LABS: Glucose,Whole Blood 152 mg/dL (75-99)
[2017-01-20] MEDS: ACETAMINOPHEN IV (For NPO) 1,000 MG in EMPTY BAG 1 BAG IVPB SCH ×4 (00:28→19:43)
[2017-01-20] MEDS: HEPARIN SODIUM,PORCINE 5,000 UNIT/ML 1 ML VIAL SQ SCH ×3 (00:46→17:09)
[2017-01-20] MEDS: ceFAZolin 3 GM in SODIUM CHLORIDE 0.9% 100 ML IVPB SCH ×3 (00:47→17:09)
[2017-01-20 01:07] LABS: Glucose,Whole Blood 146 mg/dL (75-99)
[2017-01-20] MEDS: CLEVIDIPINE BUTYRATE 25 MG in EMPTY BAG 1 BAG IV SCH ×2 (01:37→05:18)
[2017-01-20 02:03] LABS: Glucose,Whole Blood 147 mg/dL (75-99)
[2017-01-20 03:34] LABS: Glucose,Whole Blood 136 mg/dL (75-99)
[2017-01-20 04:32] LABS: Glucose,Whole Blood 128 mg/dL (75-99)
[2017-01-20 04:57] LABS: Ionized Calcium 4.9 mg/dL (4.5-5.3)
[2017-01-20 04:58] LABS: Basophils % (A) 0 %; CH 31.7; CHCM 33.3; Eosinophils % (A) 0 %; HCT 29.4 % (39.0-53.0); HDW 2.73; HGB 9.4 gm/dL (13.0-17.5); Luc % (Auto) 1; Lymphocytes # (A) 0.8 k/uL (1.0-4.8); Lymphocytes % (A) 11 %; MCH 30.6 pg (25.0-35.0); MCHC 32.1 g/dL (31.0-37.0); MCV 95.5 fL (80.0-100.0); Monocytes # (A) 0.3 k/uL (0-1.0); Monocytes % (A) 4 %; Neutrophils # (A) 6.3 k/uL (1.3-7.7); Neutrophils % (A) 84 %; RBC 3.08 m/uL (4.30-5.90); WBC 7.5 k/uL (3.8-10.6); WBC (Perox) 7.79
[2017-01-20] MEDS ORDERED: WATER IVPB ONE ×6 (05:00)
[2017-01-20] MEDS ORDERED: POTASSIUM CHLORIDE IVPB ONE ×6 (05:00)
[2017-01-20] MEDS ORDERED: MAGNESIUM SULFATE IVPB ONE ×6 (05:00)
[2017-01-20] MEDS ORDERED: MANNITOL 25% 12.5 GM/50 ML VIAL IV ONE (05:00)
[2017-01-20] MEDS ORDERED: DEXTROSE 5% IVPB ONE ×6 (05:00)
[2017-01-20 05:07] LABS: ALT 54 U/L (21-72); AST 58 U/L (17-59); Alkaline Phosphatase 34 U/L (38-126); Anion Gap 9 mmol/L; Blood Urea Nitrogen 27 mg/dL (9-20); Calcium 8.2 mg/dL (8.4-10.2); Carbon Dioxide 26 mmol/L (22-30); Chloride 105 mmol/L (98-107); Glucose 122 mg/dL (74-99); Magnesium 2.3 mg/dL (1.6-2.3); Non-African American GFR(MDRD) >60 (>60 ml/min/1.73 sqM); Potassium 4.8 mmol/L (3.5-5.1); Sodium 140 mmol/L (137-145); Total Bilirubin 0.5 mg/dL (0.2-1.3); Total Protein 5.4 g/dL (6.3-8.2)
[2017-01-20] MEDS ORDERED: LIDOCAINE 2% SYG (PF) 100 MG/5 ML IV STA (05:35)
[2017-01-20 06:10] LABS: Glucose,Whole Blood 117 mg/dL (75-99)
--- NOTE | 2017-01-20 06:11 | OP ---
DATE OF SERVICE: 01/19/2017 SURGEON: Neftali Carver MD DIE STAMPING PRESS OPERATOR: Baron Rico and Anastacio AHUMADA PREOPERATIVE DIAGNOSES: Double vessel coronary artery disease with left main disease, status post stenting to the left anterior descending artery and the right coronary artery, preserved left ventricular function, hypertension, hyperlipidemia, diabetes, obesity. POSTOPERATIVE DIAGNOSES: Double vessel coronary artery disease with left main disease, status post stenting to the left anterior descending artery and the right coronary artery, preserved left ventricular function, hypertension, hyperlipidemia, diabetes, obesity. OPERATION: 1. Beating heart pump assist triple-vessel coronary artery bypass grafting using the left internal mammary artery to the left anterior descending artery, reverse saphenous vein graft connected to the aorta using the PAS-Port device connected distally to the second diagonal artery, reverse saphenous vein graft connected to the aorta using the PAS-Port device and connected distally to the ramus intermedius artery. 2. Endoscopic harvesting of the left greater saphenous vein. 3. Intraoperative transesophageal echocardiogram and epiaortic scanning. 4. Sternal closure with cables and plating system using the tritium system. 5. Intraoperative graft flow measurements using the medistim machine. ANESTHESIA: ESTIMATED BLOOD LOSS: SPECIMENS REMOVED: COMPLICATIONS: OPERATIVE FINDINGS: INDICATION FOR THE PROCEDURE: The patient is a 61-year-old gentleman who underwent stenting to his mid RCA and proximal LAD in the recent past around 8 months ago. Patient had persistent symptoms and cardiac catheterization at this point along with IVUS shows progression of disease in the distal left main and the proximal LAD. The stent of the right coronary artery is widely patent. Patient has been brought in today for surgery to revascularize his LAD, one of the 2 diagonal and his ramus artery. We will be looking at the first obtuse marginal artery as that seems to be small by the time it comes out of the groove. Risks, benefits, and alternatives were discussed with him. He understood them and agreed to proceed. The patient was on Effient, which was stopped 4 days before surgery. DESCRIPTION OF THE PROCEDURE: Patient had a [place]-Divina catheter via the right internal jugular vein and a right radial arterial line placed. He had normal PA pressure and good cardiac index. Subsequently general endotracheal anesthesia was induced uneventfully. Elizabeth catheter was inserted. The chest, abdomen and both lower extremities were prepped and draped using ChloraPrep. Ioban was used to cover the skin. Patient received 3 grams of cefazolin intravenously. Transesophageal echocardiogram showed preserved left ventricular function and mild mitral valve regurgitation. Midline sternotomy was performed and the patient had a thick fatty layer. The left hemisternum was elevated and the left internal mammary artery was harvested in a somewhat skeletonized fashion. The left pleura was intentionally opened in this process and was drained with 28 [place] chest tube. We had a large breech in the right pleura that also drained with another 28 [place] chest tube. In the same setting, the left greater saphenous vein was harvested endoscopically from groin to mid lower leg level after administration of 2000 units of heparin. The branches were tied and the leg incisions were closed over a drain. The vein was of reasonable quality, around 4 mm in diameter and thin-walled. Mediastinal fat was transected with the Bovie and mediastinal veins clipped. Epiaortic scanning revealed some intimal thickening but no protruding atheroma in the aorta. Pericardium was opened in inverted T fashion and pericardial cradle was created. Findings included an extremely short very posteriorly positioned aorta and fatty heart and a lot of fatty mediastinal tissue. The LAD was intra- epicardial up to its distal aspect. However, it was found in its mid aspect where it was bypassed. Initially heparinization to achieve an ACT above 250 seconds was administered. The Acrobat system along with the Xpose device were used to perform the initial bypass on a beating heart. The mammary artery was double clipped distally and transected, had an excellent pulsatile flow in it and was around 2 mm in diameter. The first distal anastomosis was between the left internal mammary artery and the mid aspect of the left anterior descending artery, which was opened in its mid aspect and a thin walled area had profuse flow in it accepted a 2 mm shunt using Prolene 7-0 in continuous fashion. The shunt was removed before completing the anastomosis, which was very well tolerated. The mammary artery was affixed to the epicardium with 2 sutures of Prolene 6-0. Graft flow measurement revealed excellent flows and parameters. Subsequently using the Xpose device to expose the lateral wall. The diagonal artery first and second were identified and the second diagonal artery site of potential bypass was identified. It was extremely hard to see the ramus at this point. In the interim we had loaded 2 segments of vein on 2 PAS-port device and we had deployed them on the mid and distal left lateral aspect of the aorta. Both proximal anastomoses were hemostatic and there was excellent flow from the distal end of the veins. Looking at the EKG at this point, around 20 minutes after we had finished the left internal mammary artery to the left anterior descending artery anastomosis, we noticed new ST segment elevation basically in lead II, IV and V. The echo did not show any wall motion abnormality and PA pressure was low. We again measured graft flow and it appeared that the left internal mammary artery flow is excellent. With that, I did not want to proceed with my second anastomosis until the ST improves. However after waiting around 15 minutes, the ST did not improve; and again PA pressure remained normal and the echo did not show any wall motion abnormality. In view of the patient's body habitus and the extreme difficulty to go on emergency basis on bypass as the aorta was very short and posteriorly placed I decided to electively go on bypass and finish the surgery on a beating empty heart with pump assist. I picked a spot that is at the level of the proximal anastomosis, but more to the right to put my 2 pursestring and the second one was pledgeted. I also put in a pledgeted pursestring in the right atrial appendage. Aortic cannulation with a 21 [place] soft flow cannula was done and venous cannulation with a 29/37 venous cannula was performed. Cardiopulmonary bypass was initiated after adequate ACT and with the heart empty and kept warm and assisted, we proceeded at performing the second distal anastomosis. The second diagonal artery was opened in the mid aspect, had profuse flow in it, accepted 1.5 mm shunt and was thin-walled and the anastomosis was completed using Prolene 7-0 in continuous fashion. The vein was de-aired and the shunt was removed before completing the anastomosis. To mention that just before we went on bypass, ST had improved significantly, but that was around half an hour after the initial elevation. The flow measurements revealed patent vein with good parameters. The third and last distal anastomosis was between another segment of vein and the ramus intermedius artery, which was identified as it emerged from a deep intramyocardial course proximally and was opened, was around 1.5 mm in diameter, where it was opened had profuse flow in it, had 1.5 mm shunt inserted and the anastomosis was completed using Prolene 7-0 in continuous fashion. The vein was de-aired and the shunt was removed before completing the anastomosis, which was well tolerated. The grafts flow all revealed patent vein grafts. To mention that it would have been have extremely difficult to be able to expose that vessel had we not gone on pump assist. Satisfied with the proximal and distal anastomosis, we were able to wean off cardiopulmonary bypass very expeditiously without the need of any inotropic support. The echo showed normal LV function and no mitral regurgitation. Test dose and full dose protamine was given. Decannulation proceeded. A deep groove was made in the left pleural pericardial fat to accommodate the mammary artery medial to the lung and away from the posterior sternal table. Two substernal chest tubes were placed. The pericardial fat was approximated over the heart and the aorta. After ensuring adequate hemostasis and hemodynamics and after correct sponge, instrument and needle count, the sternum was closed using a combination off [id number] Allison cable for the manubrium supported by V plate affixed with 16 mm screw followed by 2 X plates on the sternal body affixed with 14 mm screws also supported by another cable. Thorough irrigation with cefazolin followed. The rest of the closure proceeded in layers. Skin glue sealant was applied. Patient did not receive any blood bank product but received 500 mL of Cell Saver blood. He was transferred to the ICU in stable condition with normal EKG, normal PA pressure 71, mean arterial pressure on nitroglycerin. [facility]
[2017-01-20 07:21] LABS: Glucose,Whole Blood 115 mg/dL (75-99)
--- NOTE | 2017-01-20 07:24 | XR ---
EXAMINATION TYPE: XR chest 1V portable DATE OF EXAM: 01/20/2017 7:14 AM CLINICAL HISTORY: Difficulty breathing progress study. Post open cardiac surgery. TECHNIQUE: Single AP portable semiupright view of the chest is obtained. COMPARISON: Chest x-ray from one day earlier FINDINGS: There is interval extubation with removal of endotracheal tube. There is better visualizat ion of right internal jugular [place]-Divina catheter with tip centrally at level of the pulmonary outflow tract. Bilateral chest tubes are redemonstrated, right-sided chest tube appears to have been advance d since prior. Overlying sternal wires as well as mediastinal drainage catheter is felt present. There is persistent low lung volumes with cardiomegaly and moderate central vascular congestion. Deve loping left upper lobe atelectasis and/or infiltrate needs to BE considered. No sizable pneumothorax is identified bilaterally. Osseous structures are intact. IMPRESSION: Interval extubation with persistent low lung volumes as well as cardiomegaly and moderate central vascular congestion, developing left upper lobe atelectasis and/or infiltrate is suspected.
[2017-01-20] MEDS ORDERED: MORPHINE SULFATE 2 MG/ML SYRINGE IVP ONE (07:27)
[2017-01-20] MEDS: IPRATROPIUM-ALBUTEROL 3 ML NEB INHALATION PRN ×2 (07:53→11:28)
[2017-01-20 08:03] LABS: Glucose,Whole Blood 105 mg/dL (75-99)
[2017-01-20] MEDS: ASPIRIN 325 MG TAB PO SCH (08:26)
[2017-01-20] MEDS: CLOPIDOGREL 75 MG TAB PO SCH (08:26)
[2017-01-20] MEDS: ATORVASTATIN 40 MG TAB PO SCH (08:26)
--- NOTE | 2017-01-20 08:30 | P.CON ---
Consult Note - . Assessment/Plan:: History of present illness: The patient is a 61-year-old gentleman who is an obese diabetic with underlying history of hypertension and hyperlipidemia who has had previous coronary artery disease with previous stenting. Patient was followed by cardiology and underwent stress testing which was positive. He had been having some shortness of breath with exertion. Patient was found on catheterization subsequently to have severe distal left main coronary artery disease and in-stent restenosis of the proximal left anterior descending along with severe disease of the second diagonal branch of the left anterior descending. The patient underwent coronary artery bypass surgery yesterday and presently is in the intensive care unit here at [facility]. Past medical history: Basically as stated above. With previous documented coronary artery disease and previous stenting. Diabetes associated with hyperlipidemia and hypertension. Obesity. Medications: History of ALLERGY to Actos with a rash. Home medications Januvia 100 mg daily Metformin 1000 mg twice a day Diovan 160 mg daily Effient 10 mg daily Metoprolol 50 mg daily Insulin 70 - 30 90 units twice a day. Fish oil 1 cap daily 1200 mg Calcium 600 mg daily Lipitor 80 mg daily Aspirin 325 mg daily Red yeast rice 600 mg daily. Review of systems: Patient presently is extubated. States he has some diffuse pains. Some nausea which was relieved with medication. Does not feel short of breath. He has had no urinary or bowel symptomatology. Prior to admission he was having more shortness of breath with exertion. 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 He is a former smoker. There is no history of any excessive alcohol usage or drug abuse. He lives locally with his and has 3 children. Physical examination: Patient generally is alert and oriented. Temperature was 98.4 with a pulse of 88 and respirations 19. Blood pressure 125 /51 and he is 95% saturated on high flow rate of 8. Head and neck exam unremarkable. Lungs were generally clear although diminished at bases. Heart tones were distant but regular. No definite murmurs or rubs appreciated. Abdomen is obese but nontender without organomegaly or masses. Lower legs are wrapped with 1+ edema bilaterally. Neurologically he is alert and oriented without focal cranial nerve deficits. No focal weakness noted. Laboratory: White count was 7.5 with a hemoglobin 9.4 and a platelet count of 103. Sodium is 140 with a potassium 4.8 and a CO2 content of 26. BUN was 27 with creatinine 1.0 given the patient a GFR greater than 60. Blood sugar 105. Albumin is normal at 3.5 and other liver function tests were good. Calcium 8.2. Chest x-ray shows persistent low lung volumes associated with cardiomegaly and some mild vascular congestion along with possible infiltrate in the left upper lobe/atelectasis. Impressions: Patient with underlying coronary artery disease now status post bypass surgery. Underlying comorbidities with obesity, diabetes, hypertension, hyperlipidemia. Plans: Patient being followed by cardiology, pulmonary medicine and surgery. Patient sugars being controlled with insulin. Patient to be progressed as per surgery. Will follow.
[2017-01-20 08:51] LABS: Glucose,Whole Blood 150 mg/dL (75-99)
[2017-01-20] MEDS ORDERED: CLOPIDOGREL 75 MG TAB PO STA (08:57)
[2017-01-20] MEDS ORDERED: METOPROLOL TARTRATE 25 MG TAB PO SCH (09:00)
[2017-01-20] MEDS ORDERED: PANTOPRAZOLE 40 MG/10 ML VIAL IVP SCH (09:00)
--- NOTE | 2017-01-20 09:58 | P.PN ---
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 POD #1 beating heart pump-assisted triple-vessel coronary artery bypass grafting using the left internal mammary artery to the left anterior descending artery, reverse saphenous vein graft connected to the aorta using the PAS-Port device connected distally to the second diagonal artery, reverse saphenous vein graft connected to the aorta using the PAS-Port device and connected distally to the ramus intermedius artery. Endoscopic harvesting of the left greater saphenous vein. Intraoperative transesophageal echocardiogram and epi-aortic scanning. Sternal closure with cables and plating system using the [employer] system. Intraoperative graft flow measurements using the Medistim machine. Patient's currently sitting up in bed in no apparent distress. States his pain is controlled on current medication regimen. Objective - Vital Signs Vital signs: Vital Signs Temp 98.4 F 01/20/17 07:00 Pulse 88 01/20/17 08:05 Resp 19 01/20/17 07:00 BP 145/69 01/19/17 07:06 Pulse Ox 95 01/20/17 07:00 Intake & Output 01/19/17 01/20/17 01/20/17 18:59 06:59 18:59 Intake Total 456.5 1201.501 59 Output Total 2807 1359 195 Balance -2350.5 -157.499 -136 Weight 147.5 kg 155.1 kg Intake: IV 120 868 59 Lactated Ringers 1,000 ml 550 50 @ 50 mls/hr IV .Q20H [facility] Rx#:[id number] co/ci 60 210 pressure bag 27 108 9 Intake, IV Titration 336.5 333.501 Amount Clevidipine Butyrate 25 4 67.634 mg In Empty Bag 1 bag @ 1 MG/HR 2 mls/hr IV .Q24H [facility] Rx#:[id number] Insulin Regular 100 unit 9 64.765 In Sodium Chloride 0.9% 100 ml @ Per Protocol IV .Q0M [facility] Rx#:[id number] Lactated Ringers 1,000 ml 150 50 @ 50 mls/hr IV .Q20H [facility] Rx#:[id number] Magnesium Sulfate-D5w Pmx 100 1 gm In Dextrose/Water 1 100ml.bag @ 100 mls/hr IVPB Q1H [facility] Rx#: [id number] Nitroglycerin-D5w Pmx 50 4.5 1.5 mg In Dextrose/Water 1 250ml.bag @ 5 MCG/MIN 1.5 mls/hr IV .Q24H [facility] Rx#: [id number] Propofol 500 mg In Empty 69 49.602 Bag 1 bag @ Titrate IV . Q0M [facility] Rx#:[id number] ceFAZolin 3 gm In Sodium 100 Chloride 0.9% 100 ml @ 100 mls/hr IVPB Q8HR [facility] Rx#:[id number] Output: Chest Tube Drainage 140 376 135 Left Pleural 19 53 115 Mediastinal 78 315 20 Right Pleural 43 8 0 Urine 1267 983 60 Estimated Blood Loss 1400 Other: Voiding Method Indwelling Catheter Indwelling Catheter ABP, PAP, CO, CI - Last Documented Arterial Blood Pressure 125/51 Pulmonary Artery Pressure 44/21 Cardiac Output 10.6 Cardiac Index 3.4 - Constitutional General appearance: Present: cooperative, no acute distress, obese - Respiratory Details: Lungs sounds diminished bilaterally. Respirations even, nonlabored. Currently on 8 L high flow nasal cannula. Left pleural chest tube to -20 cm wall suction , 26 mL serosanguineous drainage in the last 8 hours, 190 mL output since surgery. Right pleural chest tube to -20 cm wall suction, no drainage in the last 8 hours, 65 mL serosanguineous drainage since surgery. Mediastinal chest tube to -20 cm wall suction, 230 mL serosanguineous drainage in the last 8 hours , 480 mL since surgery. No air leaks present. - Cardiovascular Details: S1, S2 present. Regular rate, rhythm. Sinus rhythm with occasional runs of bigeminy on telemetry. Chest stable. Heart hugger in place with patient demonstrating appropriate use. Teds, SCDs present. - Gastrointestinal Gastrointestinal Comment(s): Abdomen soft, nontender, nondistended. Hypoactive bowel sounds 4 quadrants. - Genitourinary Genitourinary Comment(s): Elizabeth present draining clear, yellow urine. Approximate urine output 30-70 mL per hour. - Integumentary Integumentary Comment(s): Anterior chest covered with dry intact dressing. Left lower extremity EVH site well approximated with KEHINDE draining minimal serosanguineous drainage. - Psychiatric Psychiatric: Present: A&O x's 3, appropriate affect, intact judgment & insight - Allied health notes Allied health notes reviewed: nursing - Labs CBC & Chem 7: 01/20/17 04:32 01/20/17 04:32 Labs: Abnormal Lab Results - Last 24 Hours (Table) 01/14/17 01/19/17 01/19/17 Range/Units 10:28 09:54 11:31 RBC (4.30-5.90) m/uL Hgb (13.0-17.5) gm/dL Hct (39.0-53.0) % Plt Count (150-450) k/uL Lymphocytes # (1.0-4.8) k/uL PT (9.0-12.0) sec ABG pH (7.35-7.45) ABG pCO2 (35-45) mmHg ABG pO2 (83-108) mmHg ABG Total CO2 (19-24) mmol/L ABG O2 Saturation (94-97) % BUN (9-20) mg/dL Glucose (74-99) mg/dL POC Glucose (mg/dL) 147 H 142 H (75-99) mg/dL Calcium (8.4-10.2) mg/dL Alkaline Phosphatase (38-126) U/L Total Protein (6.3-8.2) g/dL Crossmatch See Detail 01/19/17 01/19/17 01/19/17 Range/Units 12:12 12:37 13:43 RBC (4.30-5.90) m/uL Hgb (13.0-17.5) gm/dL Hct (39.0-53.0) % Plt Count (150-450) k/uL Lymphocytes # (1.0-4.8) k/uL PT (9.0-12.0) sec ABG pH (7.35-7.45) ABG pCO2 (35-45) mmHg ABG pO2 (83-108) mmHg ABG Total CO2 (19-24) mmol/L ABG O2 Saturation (94-97) % BUN (9-20) mg/dL Glucose (74-99) mg/dL POC Glucose (mg/dL) 149 H 144 H 145 H (75-99) mg/dL Calcium (8.4-10.2) mg/dL Alkaline Phosphatase (38-126) U/L Total Protein (6.3-8.2) g/dL Crossmatch 01/19/17 01/19/17 01/19/17 Range/Units 14:03 14:49 15:30 RBC (4.30-5.90) m/uL Hgb (13.0-17.5) gm/dL Hct (39.0-53.0) % Plt Count (150-450) k/uL Lymphocytes # (1.0-4.8) k/uL PT (9.0-12.0) sec ABG pH (7.35-7.45) ABG pCO2 (35-45) mmHg ABG pO2 (83-108) mmHg ABG Total CO2 (19-24) mmol/L ABG O2 Saturation (94-97) % BUN (9-20) mg/dL Glucose (74-99) mg/dL POC Glucose (mg/dL) 170 H 185 H 164 H (75-99) mg/dL Calcium (8.4-10.2) mg/dL Alkaline Phosphatase (38-126) U/L Total Protein (6.3-8.2) g/dL Crossmatch 01/19/17 01/19/17 01/19/17 Range/Units 16:25 16:25 16:25 RBC 2.85 L (4.30-5.90) m/uL Hgb 9.0 L D (13.0-17.5) gm/dL Hct 27.0 L (39.0-53.0) % Plt Count 88 L (150-450) k/uL Lymphocytes # 0.8 L (1.0-4.8) k/uL PT 12.2 H (9.0-12.0) sec ABG pH (7.35-7.45) ABG pCO2 (35-45) mmHg ABG pO2 (83-108) mmHg ABG Total CO2 (19-24) mmol/L ABG O2 Saturation (94-97) % BUN 27 H (9-20) mg/dL Glucose 143 H (74-99) mg/dL POC Glucose (mg/dL) (75-99) mg/dL Calcium 8.2 L (8.4-10.2) mg/dL Alkaline Phosphatase 35 L (38-126) U/L Total Protein 5.6 L (6.3-8.2) g/dL Crossmatch 01/19/17 01/19/17 01/19/17 Range/Units 16:25 16:50 17:02 RBC (4.30-5.90) m/uL Hgb (13.0-17.5) gm/dL Hct (39.0-53.0) % Plt Count (150-450) k/uL Lymphocytes # (1.0-4.8) k/uL PT (9.0-12.0) sec ABG pH 7.32 L (7.35-7.45) ABG pCO2 49 H (35-45) mmHg ABG pO2 279 H (83-108) mmHg ABG Total CO2 26 H (19-24) mmol/L ABG O2 Saturation 100.0 H (94-97) % BUN (9-20) mg/dL Glucose (74-99) mg/dL POC Glucose (mg/dL) 157 H 143 H (75-99) mg/dL Calcium (8.4-10.2) mg/dL Alkaline Phosphatase (38-126) U/L Total Protein (6.3-8.2) g/dL Crossmatch 01/19/17 01/19/17 01/19/17 Range/Units 18:11 19:01 19:30 RBC 2.90 L (4.30-5.90) m/uL Hgb 9.0 L (13.0-17.5) gm/dL Hct 27.3 L (39.0-53.0) % Plt Count 84 L (150-450) k/uL Lymphocytes # 0.6 L (1.0-4.8) k/uL PT (9.0-12.0) sec ABG pH (7.35-7.45) ABG pCO2 (35-45) mmHg ABG pO2 (83-108) mmHg ABG Total CO2 (19-24) mmol/L ABG O2 Saturation (94-97) % BUN (9-20) mg/dL Glucose (74-99) mg/dL POC Glucose (mg/dL) 141 H 158 H (75-99) mg/dL Calcium (8.4-10.2) mg/dL Alkaline Phosphatase (38-126) U/L Total Protein (6.3-8.2) g/dL Crossmatch 01/19/17 01/19/17 01/19/17 Range/Units 20:15 20:57 22:07 RBC (4.30-5.90) m/uL Hgb (13.0-17.5) gm/dL Hct (39.0-53.0) % Plt Count (150-450) k/uL Lymphocytes # (1.0-4.8) k/uL PT (9.0-12.0) sec ABG pH (7.35-7.45) ABG pCO2 (35-45) mmHg ABG pO2 (83-108) mmHg ABG Total CO2 (19-24) mmol/L ABG O2 Saturation (94-97) % BUN (9-20) mg/dL Glucose (74-99) mg/dL POC Glucose (mg/dL) 165 H 165 H 161 H (75-99) mg/dL Calcium (8.4-10.2) mg/dL Alkaline Phosphatase (38-126) U/L Total Protein (6.3-8.2) g/dL Crossmatch 01/19/17 01/19/17 01/19/17 Range/Units 22:10 23:00 23:03 RBC 3.06 L (4.30-5.90) m/uL Hgb 9.5 L (13.0-17.5) gm/dL Hct 29.3 L (39.0-53.0) % Plt Count 106 L (150-450) k/uL Lymphocytes # 0.9 L (1.0-4.8) k/uL PT (9.0-12.0) sec ABG pH (7.35-7.45) ABG pCO2 (35-45) mmHg ABG pO2 75 L (83-108) mmHg ABG Total CO2 25 H (19-24) mmol/L ABG O2 Saturation (94-97) % BUN (9-20) mg/dL Glucose (74-99) mg/dL POC Glucose (mg/dL) 170 H (75-99) mg/dL Calcium (8.4-10.2) mg/dL Alkaline Phosphatase (38-126) U/L Total Protein (6.3-8.2) g/dL Crossmatch 01/19/17 01/20/17 01/20/17 Range/Units 23:55 01:04 02:01 RBC (4.30-5.90) m/uL Hgb (13.0-17.5) gm/dL Hct (39.0-53.0) % Plt Count (150-450) k/uL Lymphocytes # (1.0-4.8) k/uL PT (9.0-12.0) sec ABG pH (7.35-7.45) ABG pCO2 (35-45) mmHg ABG pO2 (83-108) mmHg ABG Total CO2 (19-24) mmol/L ABG O2 Saturation (94-97) % BUN (9-20) mg/dL Glucose (74-99) mg/dL POC Glucose (mg/dL) 152 H 146 H 147 H (75-99) mg/dL Calcium (8.4-10.2) mg/dL Alkaline Phosphatase (38-126) U/L Total Protein (6.3-8.2) g/dL Crossmatch 01/20/17 01/20/17 01/20/17 Range/Units 03:32 04:31 04:32 RBC 3.08 L (4.30-5.90) m/uL Hgb 9.4 L (13.0-17.5) gm/dL Hct 29.4 L (39.0-53.0) % Plt Count 103 L (150-450) k/uL Lymphocytes # 0.8 L (1.0-4.8) k/uL PT (9.0-12.0) sec ABG pH (7.35-7.45) ABG pCO2 (35-45) mmHg ABG pO2 (83-108) mmHg ABG Total CO2 (19-24) mmol/L ABG O2 Saturation (94-97) % BUN (9-20) mg/dL Glucose (74-99) mg/dL POC Glucose (mg/dL) 136 H 128 H (75-99) mg/dL Calcium (8.4-10.2) mg/dL Alkaline Phosphatase (38-126) U/L Total Protein (6.3-8.2) g/dL Crossmatch 01/20/17 01/20/17 01/20/17 Range/Units 04:32 06:09 07:20 RBC (4.30-5.90) m/uL Hgb (13.0-17.5) gm/dL Hct (39.0-53.0) % Plt Count (150-450) k/uL Lymphocytes # (1.0-4.8) k/uL PT (9.0-12.0) sec ABG pH (7.35-7.45) ABG pCO2 (35-45) mmHg ABG pO2 (83-108) mmHg ABG Total CO2 (19-24) mmol/L ABG O2 Saturation (94-97) % BUN 27 H (9-20) mg/dL Glucose 122 H (74-99) mg/dL POC Glucose (mg/dL) 117 H 115 H (75-99) mg/dL Calcium 8.2 L (8.4-10.2) mg/dL Alkaline Phosphatase 34 L (38-126) U/L Total Protein 5.4 L (6.3-8.2) g/dL Crossmatch 01/20/17 01/20/17 Range/Units 08:01 08:50 RBC (4.30-5.90) m/uL Hgb (13.0-17.5) gm/dL Hct (39.0-53.0) % Plt Count (150-450) k/uL Lymphocytes # (1.0-4.8) k/uL PT (9.0-12.0) sec ABG pH (7.35-7.45) ABG pCO2 (35-45) mmHg ABG pO2 (83-108) mmHg ABG Total CO2 (19-24) mmol/L ABG O2 Saturation (94-97) % BUN (9-20) mg/dL Glucose (74-99) mg/dL POC Glucose (mg/dL) 105 H 150 H (75-99) mg/dL Calcium (8.4-10.2) mg/dL Alkaline Phosphatase (38-126) U/L Total Protein (6.3-8.2) g/dL Crossmatch - Imaging and Cardiology Chest x-ray: report reviewed, image reviewed Assessment and Plan (1) Coronary artery disease Status: Acute (2) Hypertension Status: Acute (3) Hyperlipidemia Status: Acute (4) Diabetes mellitus Status: Acute (5) Obesity, morbid, BMI 40.0-49.9 Status: Acute Plan: 1. Continue aspirin, beta rachel, statin. Give 150 mg Plavix today and tomorrow, then resume with 75 mg daily on Tuesday. 2. Encourage incentive spirometry use. 3. Will get out of bed later today once PVCs has subsided. 4. DC Man. 5. GI/DVT prophylaxis. 6. Will monitor heart rate and rhythm closely and adjust medications as necessary. 7. Will DC nitro IV later today. 8. More recommendations as patient progresses. Time with Patient: Greater than 30
[2017-01-20 10:22] LABS: Glucose,Whole Blood 152 mg/dL (75-99)
[2017-01-20] MEDS: MUPIROCIN 2% OINT 22 GM TUBE NASAL SCH ×2 (10:23→21:20)
--- NOTE | 2017-01-20 10:35 | P.PN ---
Subjective Morbidly obese 61-year-old male patient, with established coronary artery disease who was found to have a positive stress test and subsequent cardiac catheterization showing distal left main disease and proximal LAD restenosis and a patent RCA stent. The patient is diabetic hypertensive and has hyperlipidemia. The patient was referred for cardiac bypass surgery. The patient was evaluated and underwent a three-vessel bypass surgery including WITT to LAD. The patient comes into the intensive care unit on I'm seeing this patient postop day #0. I evaluated and so the patient immediately after he arrived to the intensive care unit. I have an assist-control mode of ventilation at the rate of 12, FiO2 of 100%, PEEP of 5 and tidal volume of 600. Chest x-ray showing small lung volumes and ET tube is in a good location, Hampton-Divina catheter in place, the patient has 2 mediastinal, right pleural and left pleural chest tubes and all of them are in place. Hemodynamically the patient has a cardiac index of 3.1. PA pressures of 45/27. He is producing adequate amount of urine output. He is on no pressors at this point. He is sedated with Diprivan is calm and comfortable. Blood gases are still pending for now. Surgical wound site over the chest and lower extremities are dry clean and intact. I was told that the patient was a difficult intubation and he was intubated via glidoscope. . The patient is on an insulin drip at 3 units an hour. The patient is on a nitroglycerin drip at 5 g. The patient is on Diprivan drip for sedation. On 01/20/2079 seeing the patient follow-up. The patient is doing extremely well. The patient was weaned off the mechanical ventilator and the patient was extubated without any major difficulties. The patient is currently on high flow oxygen 8 L per minute nasal cannula. Today's chest x-ray shows small lung volumes and atelectatic changes bilaterally. Mediastinal chest tubes and thoracic chest tubes are all in place. There is sternal chest tubes are quite active at this point terms of drainage. Hampton-Divina catheter was removed after confirming a recent cardiac index this morning. The patient's producing adequate amount of urine output. Cleviprex is running at 1 mg. The patient has no chest pain. No change in mental status. No other significant events overnight. Insulin drip still being utilized for tighter blood sugar control. Objective - Vital Signs Vital signs: Vital Signs Temp 98.4 F 01/20/17 07:00 Pulse 88 01/20/17 08:05 Resp 21 01/20/17 08:00 BP 145/69 01/19/17 07:06 Pulse Ox 95 01/20/17 08:00 Intake & Output 01/19/17 01/20/17 01/20/17 18:59 06:59 18:59 Intake Total 456.5 1201.501 307.5 Output Total 2807 1359 402 Balance -2350.5 -157.499 -94.5 Weight 147.5 kg 155.1 kg Intake: IV 120 868 200 Lactated Ringers 1,000 ml 550 170 @ 20 mls/hr IV .Q24H [facility] Rx#:[id number] co/ci 60 210 pressure bag 27 108 30 Intake, IV Titration 336.5 333.501 107.5 Amount Clevidipine Butyrate 25 4 67.634 mg In Empty Bag 1 bag @ 1 MG/HR 2 mls/hr IV .Q24H [facility] Rx#:[id number] Insulin Regular 100 unit 9 64.765 In Sodium Chloride 0.9% 100 ml @ Per Protocol IV .Q0M [facility] Rx#:[id number] Lactated Ringers 1,000 ml 150 50 @ 20 mls/hr IV .Q24H [facility] Rx#:[id number] Magnesium Sulfate-D5w Pmx 100 1 gm In Dextrose/Water 1 100ml.bag @ 100 mls/hr IVPB Q1H [facility] Rx#: [id number] Nitroglycerin-D5w Pmx 50 4.5 1.5 7.5 mg In Dextrose/Water 1 250ml.bag @ 5 MCG/MIN 1.5 mls/hr IV .Q24H [facility] Rx#: [id number] Propofol 500 mg In Empty 69 49.602 Bag 1 bag @ Titrate IV . Q0M [facility] Rx#:[id number] ceFAZolin 3 gm In Sodium 100 100 Chloride 0.9% 100 ml @ 100 mls/hr IVPB Q8HR [facility] Rx#:[id number] Output: Chest Tube Drainage 140 376 192 Left Pleural 19 53 133 Mediastinal 78 315 50 Right Pleural 43 8 9 Urine 1267 983 210 Estimated Blood Loss 1400 Other: Voiding Method Indwelling Catheter Indwelling Catheter ABP, PAP, CO, CI - Last Documented Arterial Blood Pressure 126/51 Pulmonary Artery Pressure 48/22 Cardiac Output 9.5 Cardiac Index 3.6 - Exam Head exam was generally normal. There was no scleral icterus or corneal arcus. Mucous membranes were moist.Neck was supple and without jugular venous distension, thyromegaly, or carotid bruits. Carotids were easily palpable bilaterally. There was no adenopathy. The patient has a Hampton-Divina catheter in the right IJ. There is significant crowding of the posterior oropharynx. There is no goiter or neck masses. Lungs sounds are diminished in lung bases sternal stable clean and intact and the patient has a distended and pleural chest tubes bilaterally. Cardiac exam revealed the PMI to be normally situated and sized. The rhythm was regular and no extrasystoles were noted during several minutes of auscultation. The first and second heart sounds were normal and physiologic splitting of the second heart sound was noted. There were no murmurs, rubs, clicks, or gallops.. Abdomen is obese soft nondistended.Examination of the extremities revealed easily palpable radial, femoral and pedal pulses. There was no cyanosis, clubbing or edema. Skin reveals dry clean and intact surgical wound sites. - Labs CBC & Chem 7: 01/20/17 04:32 01/20/17 04:32 Labs: Abnormal Lab Results - Last 24 Hours (Table) 01/14/17 01/19/17 01/19/17 Range/Units 10:28 11:31 12:12 RBC (4.30-5.90) m/uL Hgb (13.0-17.5) gm/dL Hct (39.0-53.0) % Plt Count (150-450) k/uL Lymphocytes # (1.0-4.8) k/uL PT (9.0-12.0) sec ABG pH (7.35-7.45) ABG pCO2 (35-45) mmHg ABG pO2 (83-108) mmHg ABG Total CO2 (19-24) mmol/L ABG O2 Saturation (94-97) % BUN (9-20) mg/dL Glucose (74-99) mg/dL POC Glucose (mg/dL) 142 H 149 H (75-99) mg/dL Calcium (8.4-10.2) mg/dL Alkaline Phosphatase (38-126) U/L Total Protein (6.3-8.2) g/dL Crossmatch See Detail 01/19/17 01/19/17 01/19/17 Range/Units 12:37 13:43 14:03 RBC (4.30-5.90) m/uL Hgb (13.0-17.5) gm/dL Hct (39.0-53.0) % Plt Count (150-450) k/uL Lymphocytes # (1.0-4.8) k/uL PT (9.0-12.0) sec ABG pH (7.35-7.45) ABG pCO2 (35-45) mmHg ABG pO2 (83-108) mmHg ABG Total CO2 (19-24) mmol/L ABG O2 Saturation (94-97) % BUN (9-20) mg/dL Glucose (74-99) mg/dL POC Glucose (mg/dL) 144 H 145 H 170 H (75-99) mg/dL Calcium (8.4-10.2) mg/dL Alkaline Phosphatase (38-126) U/L Total Protein (6.3-8.2) g/dL Crossmatch 01/19/17 01/19/17 01/19/17 Range/Units 14:49 15:30 16:25 RBC 2.85 L (4.30-5.90) m/uL Hgb 9.0 L D (13.0-17.5) gm/dL Hct 27.0 L (39.0-53.0) % Plt Count 88 L (150-450) k/uL Lymphocytes # 0.8 L (1.0-4.8) k/uL PT (9.0-12.0) sec ABG pH (7.35-7.45) ABG pCO2 (35-45) mmHg ABG pO2 (83-108) mmHg ABG Total CO2 (19-24) mmol/L ABG O2 Saturation (94-97) % BUN (9-20) mg/dL Glucose (74-99) mg/dL POC Glucose (mg/dL) 185 H 164 H (75-99) mg/dL Calcium (8.4-10.2) mg/dL Alkaline Phosphatase (38-126) U/L Total Protein (6.3-8.2) g/dL Crossmatch 01/19/17 01/19/17 01/19/17 Range/Units 16:25 16:25 16:25 RBC (4.30-5.90) m/uL Hgb (13.0-17.5) gm/dL Hct (39.0-53.0) % Plt Count (150-450) k/uL Lymphocytes # (1.0-4.8) k/uL PT 12.2 H (9.0-12.0) sec ABG pH (7.35-7.45) ABG pCO2 (35-45) mmHg ABG pO2 (83-108) mmHg ABG Total CO2 (19-24) mmol/L ABG O2 Saturation (94-97) % BUN 27 H (9-20) mg/dL Glucose 143 H (74-99) mg/dL POC Glucose (mg/dL) 157 H (75-99) mg/dL Calcium 8.2 L (8.4-10.2) mg/dL Alkaline Phosphatase 35 L (38-126) U/L Total Protein 5.6 L (6.3-8.2) g/dL Crossmatch 01/19/17 01/19/17 01/19/17 Range/Units 16:50 17:02 18:11 RBC (4.30-5.90) m/uL Hgb (13.0-17.5) gm/dL Hct (39.0-53.0) % Plt Count (150-450) k/uL Lymphocytes # (1.0-4.8) k/uL PT (9.0-12.0) sec ABG pH 7.32 L (7.35-7.45) ABG pCO2 49 H (35-45) mmHg ABG pO2 279 H (83-108) mmHg ABG Total CO2 26 H (19-24) mmol/L ABG O2 Saturation 100.0 H (94-97) % BUN (9-20) mg/dL Glucose (74-99) mg/dL POC Glucose (mg/dL) 143 H 141 H (75-99) mg/dL Calcium (8.4-10.2) mg/dL Alkaline Phosphatase (38-126) U/L Total Protein (6.3-8.2) g/dL Crossmatch 01/19/17 01/19/1717 Range/Units 19:01 19:30 20:15 RBC 2.90 L (4.30-5.90) m/uL Hgb 9.0 L (13.0-17.5) gm/dL Hct 27.3 L (39.0-53.0) % Plt Count 84 L (150-450) k/uL Lymphocytes # 0.6 L (1.0-4.8) k/uL PT (9.0-12.0) sec ABG pH (7.35-7.45) ABG pCO2 (35-45) mmHg ABG pO2 (83-108) mmHg ABG Total CO2 (19-24) mmol/L ABG O2 Saturation (94-97) % BUN (9-20) mg/dL Glucose (74-99) mg/dL POC Glucose (mg/dL) 158 H 165 H (75-99) mg/dL Calcium (8.4-10.2) mg/dL Alkaline Phosphatase (38-126) U/L Total Protein (6.3-8.2) g/dL Crossmatch 01/19/17 01/19/17 01/19/17 Range/Units 20:57 22:07 22:10 RBC (4.30-5.90) m/uL Hgb (13.0-17.5) gm/dL Hct (39.0-53.0) % Plt Count (150-450) k/uL Lymphocytes # (1.0-4.8) k/uL PT (9.0-12.0) sec ABG pH (7.35-7.45) ABG pCO2 (35-45) mmHg ABG pO2 75 L (83-108) mmHg ABG Total CO2 25 H (19-24) mmol/L ABG O2 Saturation (94-97) % BUN (9-20) mg/dL Glucose (74-99) mg/dL POC Glucose (mg/dL) 165 H 161 H (75-99) mg/dL Calcium (8.4-10.2) mg/dL Alkaline Phosphatase (38-126) U/L Total Protein (6.3-8.2) g/dL Crossmatch 01/19/17 01/19/17 01/19/17 Range/Units 23:00 23:03 23:55 RBC 3.06 L (4.30-5.90) m/uL Hgb 9.5 L (13.0-17.5) gm/dL Hct 29.3 L (39.0-53.0) % Plt Count 106 L (150-450) k/uL Lymphocytes # 0.9 L (1.0-4.8) k/uL PT (9.0-12.0) sec ABG pH (7.35-7.45) ABG pCO2 (35-45) mmHg ABG pO2 (83-108) mmHg ABG Total CO2 (19-24) mmol/L ABG O2 Saturation (94-97) % BUN (9-20) mg/dL Glucose (74-99) mg/dL POC Glucose (mg/dL) 170 H 152 H (75-99) mg/dL Calcium (8.4-10.2) mg/dL Alkaline Phosphatase (38-126) U/L Total Protein (6.3-8.2) g/dL Crossmatch 01/20/17 01/20/17 01/20/17 Range/Units 01:04 02:01 03:32 RBC (4.30-5.90) m/uL Hgb (13.0-17.5) gm/dL Hct (39.0-53.0) % Plt Count (150-450) k/uL Lymphocytes # (1.0-4.8) k/uL PT (9.0-12.0) sec ABG pH (7.35-7.45) ABG pCO2 (35-45) mmHg ABG pO2 (83-108) mmHg ABG Total CO2 (19-24) mmol/L ABG O2 Saturation (94-97) % BUN (9-20) mg/dL Glucose (74-99) mg/dL POC Glucose (mg/dL) 146 H 147 H 136 H (75-99) mg/dL Calcium (8.4-10.2) mg/dL Alkaline Phosphatase (38-126) U/L Total Protein (6.3-8.2) g/dL Crossmatch 01/20/17 01/20/17 01/20/17 Range/Units 04:31 04:32 04:32 RBC 3.08 L (4.30-5.90) m/uL Hgb 9.4 L (13.0-17.5) gm/dL Hct 29.4 L (39.0-53.0) % Plt Count 103 L (150-450) k/uL Lymphocytes # 0.8 L (1.0-4.8) k/uL PT (9.0-12.0) sec ABG pH (7.35-7.45) ABG pCO2 (35-45) mmHg ABG pO2 (83-108) mmHg ABG Total CO2 (19-24) mmol/L ABG O2 Saturation (94-97) % BUN 27 H (9-20) mg/dL Glucose 122 H (74-99) mg/dL POC Glucose (mg/dL) 128 H (75-99) mg/dL Calcium 8.2 L (8.4-10.2) mg/dL Alkaline Phosphatase 34 L (38-126) U/L Total Protein 5.4 L (6.3-8.2) g/dL Crossmatch 01/20/17 01/20/17 01/20/17 Range/Units 06:09 07:20 08:01 RBC (4.30-5.90) m/uL Hgb (13.0-17.5) gm/dL Hct (39.0-53.0) % Plt Count (150-450) k/uL Lymphocytes # (1.0-4.8) k/uL PT (9.0-12.0) sec ABG pH (7.35-7.45) ABG pCO2 (35-45) mmHg ABG pO2 (83-108) mmHg ABG Total CO2 (19-24) mmol/L ABG O2 Saturation (94-97) % BUN (9-20) mg/dL Glucose (74-99) mg/dL POC Glucose (mg/dL) 117 H 115 H 105 H (75-99) mg/dL Calcium (8.4-10.2) mg/dL Alkaline Phosphatase (38-126) U/L Total Protein (6.3-8.2) g/dL Crossmatch 01/20/17 01/20/17 Range/Units 08:50 10:20 RBC (4.30-5.90) m/uL Hgb (13.0-17.5) gm/dL Hct (39.0-53.0) % Plt Count (150-450) k/uL Lymphocytes # (1.0-4.8) k/uL PT (9.0-12.0) sec ABG pH (7.35-7.45) ABG pCO2 (35-45) mmHg ABG pO2 (83-108) mmHg ABG Total CO2 (19-24) mmol/L ABG O2 Saturation (94-97) % BUN (9-20) mg/dL Glucose (74-99) mg/dL POC Glucose (mg/dL) 150 H 152 H (75-99) mg/dL Calcium (8.4-10.2) mg/dL Alkaline Phosphatase (38-126) U/L Total Protein (6.3-8.2) g/dL Crossmatch Assessment and Plan Plan: Assessment 1 multivessel coronary artery disease, status post two-vessel bypass and the patient is postop day #1 On 01/20/2017 the patient was weaned off the mechanical ventilated and the patient was extubated without any major difficulties. The patient is hemodynamically stable. The patient on no pressors. The patient developed postoperative ectopies and currently is on beta blockers. Cardiac rhythm is sinus. 2 postoperative vent management and pulmonary care. The patient is currently intubated on mechanical ventilator and this is quite expected postthoracotomy. Chest x-ray shows small lung volumes of this is probably related to his obesity. Based on FEV1 is noted of 43% of predicted. The patient is an ex- smoker. On 01/20/2017 the patient has been weaned off the mechanical ventilator and the patient extubated. Today's chest x-ray shows atelectatic changes bilaterally and the patient needs to work more aggressively on his incentive spirometer. Chest tubes are still in place. 3 obesity 4 diabetes mellitus currently on insulin drip for blood sugar control 5 hypertension 6 hyperlipidemia 7 degenerative arthritis with chronic pain syndrome involving the shoulder and the back and the knees bilaterally. Plan Patient is stable. Continue IS Continue insulin drip for blood sugar control. The patient was noted to have some ectopies and for that reason he is currently on beta blockers utilizing 25 mg of Lopressor twice a day. Hampton-Divina catheter was removed. The patient will be staying in ICU for 24 hours. Monitor the output from the chest tubes. Continue the rest of the supportive care. We'll follow.
[2017-01-20 11:10] LABS: Glucose,Whole Blood 147 mg/dL (75-99)
[2017-01-20 12:03] LABS: Glucose,Whole Blood 133 mg/dL (75-99)
[2017-01-20 13:50] LABS: Glucose,Whole Blood 118 mg/dL (75-99)
[2017-01-20] MEDS: MULTIVITAMINS, THERA 1 EACH TAB PO SCH (14:15)
[2017-01-20 15:11] LABS: Glucose,Whole Blood 108 mg/dL (75-99)
[2017-01-20] MEDS ORDERED: HYDROcodone/APAP 5-325MG 1 EACH TAB PO PRN (15:44)
[2017-01-20] MEDS ORDERED: MAGNESIUM HYDROXIDE 2,400 MG/10 ML CUP PO PRN (15:45)
[2017-01-20] MEDS ORDERED: BISACODYL 10 MG SUPP RECTAL PRN (15:45)
[2017-01-20 16:15] LABS: Glucose,Whole Blood 104 mg/dL (75-99)
[2017-01-20] MEDS: MORPHINE SULFATE 2 MG/ML SYRINGE IVP PRN (17:09)
[2017-01-20 17:23] LABS: Glucose,Whole Blood 108 mg/dL (75-99)
[2017-01-20 18:11] LABS: Glucose,Whole Blood 98 mg/dL (75-99)
[2017-01-20 19:09] LABS: Glucose,Whole Blood 114 mg/dL (75-99)
[2017-01-20] MEDS: LACTATED RINGERS 1,000 ML IV SCH (19:46)
[2017-01-20 20:15] LABS: Glucose,Whole Blood 126 mg/dL (75-99)
[2017-01-20] MEDS: INSULIN REGULAR 100 UNIT in SODIUM CHLORIDE 0.9% 100 ML IV SCH (20:54)
[2017-01-20 21:17] LABS: Glucose,Whole Blood 128 mg/dL (75-99)
[2017-01-20] MEDS: METOPROLOL TARTRATE 25 MG TAB PO SCH (21:20)
[2017-01-20] MEDS: HYDROcodone/APAP 5-325MG 1 EACH TAB PO PRN (21:21)
[2017-01-20] MEDS: SENNOSIDES-DOCUSATE SODIUM 1 EACH TAB PO SCH (21:21)
[2017-01-20 22:03] LABS: Glucose,Whole Blood 114 mg/dL (75-99)
[2017-01-20 23:12] LABS: Glucose,Whole Blood 105 mg/dL (75-99)
[2017-01-21 00:07] LABS: Glucose,Whole Blood 127 mg/dL (75-99)
[2017-01-21] MEDS: HEPARIN SODIUM,PORCINE 5,000 UNIT/ML 1 ML VIAL SQ SCH ×4 (00:10→20:32)
[2017-01-21] MEDS: ceFAZolin 3 GM in SODIUM CHLORIDE 0.9% 100 ML IVPB SCH (00:17)
[2017-01-21 01:25] LABS: Glucose,Whole Blood 122 mg/dL (75-99)
[2017-01-21] MEDS: HYDROcodone/APAP 5-325MG 1 EACH TAB PO PRN ×4 (01:25→20:30)
[2017-01-21 03:30] LABS: Glucose,Whole Blood 115 mg/dL (75-99)
[2017-01-21 04:23] LABS: Glucose,Whole Blood 113 mg/dL (75-99)
[2017-01-21 04:36] LABS: Basophils % (A) 0 %; CHCM 32.4; Eosinophils # (A) 0.1 k/uL (0-0.7); Eosinophils % (A) 1 %; HCT 28.3 % (39.0-53.0); HDW 2.71; Luc # (Auto) 0.14; Luc % (Auto) 2; Lymphocytes # (A) 0.9 k/uL (1.0-4.8); Lymphocytes % (A) 12 %; MCH 30.6 pg (25.0-35.0); MCHC 31.9 g/dL (31.0-37.0); MCV 96.1 fL (80.0-100.0); Mean Platelet Volume 8.6; Monocytes # (A) 0.5 k/uL (0-1.0); Monocytes % (A) 6 %; Neutrophils # (A) 6.2 k/uL (1.3-7.7); Neutrophils % (A) 79 %; RBC 2.95 m/uL (4.30-5.90); RDW 13.9 % (11.5-15.5); WBC 7.8 k/uL (3.8-10.6); WBC (Perox) 7.95
[2017-01-21 04:37] LABS: INR 1.2 (<1.1); Prothrombin Time 11.7 sec (9.0-12.0)
[2017-01-21 04:59] LABS: Ionized Calcium 4.9 mg/dL (4.5-5.3)
[2017-01-21 05:06] LABS: ALT 41 U/L (21-72); AST 48 U/L (17-59); Alkaline Phosphatase 44 U/L (38-126); Anion Gap 7 mmol/L; Blood Urea Nitrogen 23 mg/dL (9-20); Calcium 8.1 mg/dL (8.4-10.2); Carbon Dioxide 28 mmol/L (22-30); Chloride 104 mmol/L (98-107); Glucose 106 mg/dL (74-99); Magnesium 2.2 mg/dL (1.6-2.3); Non-African American GFR(MDRD) >60 (>60 ml/min/1.73 sqM); Potassium 4.9 mmol/L (3.5-5.1); Sodium 139 mmol/L (137-145); Total Bilirubin 0.6 mg/dL (0.2-1.3); Total Protein 5.4 g/dL (6.3-8.2)
[2017-01-21 05:18] LABS: Glucose,Whole Blood 103 mg/dL (75-99)
[2017-01-21] MEDS: METOPROLOL TARTRATE 25 MG TAB PO SCH (05:51)
[2017-01-21 06:28] LABS: Glucose,Whole Blood 125 mg/dL (75-99)
[2017-01-21 08:00] LABS: Glucose,Whole Blood 147 mg/dL (75-99)
[2017-01-21] MEDS: CLOPIDOGREL 75 MG TAB PO SCH (08:18)
[2017-01-21] MEDS: ASPIRIN 325 MG TAB PO SCH (08:18)
[2017-01-21] MEDS: PANTOPRAZOLE 40 MG TABLET PO SCH (08:19)
[2017-01-21] MEDS: ATORVASTATIN 40 MG TAB PO SCH (08:19)
[2017-01-21] MEDS: MULTIVITAMINS, THERA 1 EACH TAB PO SCH (08:19)
[2017-01-21] MEDS ORDERED: INSULN ASP PRT/INSULIN ASPART 100 UNIT/ML 10 ML VIAL SQ SCH (08:30)
--- NOTE | 2017-01-21 08:33 | P.PN ---
Progress Note - Text The patient is a 61 year-old gentleman who underwent coronary artery bypass surgery. Patient is off the vent but remains this morning in the intensive care unit. He is alert and oriented. Surgery in process of removing some of his tubes. Otherwise he appears to be doing well. Patient does have underlying obesity, diabetes, hypertension and hyperlipidemia. Vital signs reveal temperature of 97.3 with a pulse of 73 and respirations 25. Blood pressure is 131/49 and he is 99% saturated on 4 L high flow. He is alert and oriented. His respirations are unlabored. In no acute distress. Moving all extremities without focal deficits. Cranial nerves intact. Laboratory: White count is 7.8 with a hemoglobin of 9.0 and a platelet count at 96. INR 1.2. Electrolytes were unremarkable. Potassium 4.9. BUN of 23 with a creatinine of 0.93 giving him a GFR greater than 60. Blood sugar 106. Albumin mildly low at 3.1. Other liver function tests good. Chest x-ray report pending but appears to show still some poor inspiratory effort and cardiomegaly. Along with central vascular congestion. Impressions and plans: Discussed with nursing and surgical staff and patient at bedside. Surgical service likely to progress patient to a selective care. Continue to monitor blood sugars with insulin coverage. Patient presently not taking much calories in orally. May need to adjust medications and insulin over the next 24-48 hours pending recovery.
[2017-01-21] MEDS ORDERED: METOPROLOL TARTRATE 25 MG TAB PO ONE (09:00)
[2017-01-21] MEDS ORDERED: CLOPIDOGREL 75 MG TAB PO ONE (09:00)
--- NOTE | 2017-01-21 09:02 | XR ---
EXAMINATION TYPE: XR chest 1V portable DATE OF EXAM: 01/21/2017 6:49 AM HISTORY: Post Operative Cardiac Surgery. REFERENCE: Previous study dated 01/20/2017. FINDINGS: There has been a midline sternotomy. There are bilateral pleural drains in place. The heart is enlarged. There is atelectatic change present at both lung bases, worse on the left than the right. There is also some left upper lobe atelectasis. I suspect a small left effusion. IMPRESSION: CONTINUING POSTOPERATIVE CHANGE.
[2017-01-21] MEDS: MUPIROCIN 2% OINT 22 GM TUBE NASAL SCH ×2 (09:22→20:32)
[2017-01-21] MEDS: INSULIN LISPRO (humaLOG) 300 UNIT/3 ML VIAL SQ SCH ×5 (09:43→20:53)
[2017-01-21] MEDS ORDERED: MUPIROCIN 2% OINT 22 GM TUBE NASAL SCH (10:52)
--- NOTE | 2017-01-21 10:57 | P.PN ---
Progress Note - Text CV Surgery Nursing POD: #2, off-pump triple vessel coronary artery bypass grafting utilizing the left internal mammary artery to left anterior descending coronary artery, reverse saphenous vein grafts to the second diagonal branch and ramus intermedius artery. Endoscopic harvesting of the left greater saphenous vein, intraoperative transesophageal echocardiogram and epi-aortic ultrasonography, sternal closure with cables and plating system using the Tritium system. Intraoperative graft flow measurements using the medistim machine Patient awake and alert, sitting up in bed, no distress noted, no specific complaints. Vital Signs: Afebrile, T-max 98.4F Vital Signs - 24 hr 01/20/17 01/20/17 01/20/17 11:00 11:28 11:41 Temperature Pulse Rate 68 68 70 Pulse Rate [ Left] Respiratory 30 H Rate O2 Sat by Pulse 98 Oximetry 01/20/17 01/20/17 01/20/17 12:00 13:00 14:00 Temperature 98.4 F Pulse Rate 72 76 70 Pulse Rate [ Left] Respiratory 30 H 30 H 25 H Rate O2 Sat by Pulse 98 100 100 Oximetry 01/20/17 01/20/17 01/20/17 15:00 16:00 17:00 Temperature 98 F Pulse Rate 70 74 73 Pulse Rate [ Left] Respiratory 17 20 30 H Rate O2 Sat by Pulse 100 97 96 Oximetry 01/20/17 01/20/17 01/20/17 18:00 19:00 20:00 Temperature 98.1 F Pulse Rate 76 72 73 Pulse Rate [ Left] Respiratory 28 H 31 H 28 H Rate O2 Sat by Pulse 98 100 100 Oximetry 01/20/17 01/20/17 01/20/17 21:00 22:00 23:00 Temperature Pulse Rate 71 71 68 Pulse Rate [ Left] Respiratory 15 25 H 18 Rate O2 Sat by Pulse 99 98 98 Oximetry 01/21/17 01/21/17 01/21/17 00:00 01:00 02:00 Temperature Pulse Rate 72 74 72 Pulse Rate [ 65 Left] Respiratory 27 H 25 H 23 Rate O2 Sat by Pulse 100 98 99 Oximetry 01/21/17 01/21/17 01/21/17 03:00 04:00 05:00 Temperature 97.3 F L Pulse Rate 74 72 85 Pulse Rate [ 65 Left] Respiratory 15 24 26 H Rate O2 Sat by Pulse 100 100 96 Oximetry 01/21/17 01/21/17 01/21/17 06:00 07:00 08:00 Temperature 98.4 F Pulse Rate 85 73 80 Pulse Rate [ Left] Respiratory 24 25 H 30 H Rate O2 Sat by Pulse 97 99 99 Oximetry ABP, PAP, CO, CI - Last 8 Hours Arterial Blood Pressure 143/54 Arterial Blood Pressure 131/49 Arterial Blood Pressure 116/48 Arterial Blood Pressure 158/52 Arterial Blood Pressure 133/50 Arterial Blood Pressure 140/51 Labs: Short CBC 01/21/17 Range/Units 04:20 WBC 7.8 (3.8-10.6) k/uL Hgb 9.0 L (13.0-17.5) gm/dL Hct 28.3 L (39.0-53.0) % Plt Count 96 L (150-450) k/uL Neutrophils # 6.2 (1.3-7.7) k/uL BMP 01/21/17 04:20 Sodium 139 Potassium 4.9 Chloride 104 Carbon Dioxide 28 BUN 23 H Creatinine 0.93 Glucose 106 H Calcium 8.1 L Liver Function 01/21/17 Range/Units 04:20 Total Bilirubin 0.6 (0.2-1.3) mg/dL AST 48 (17-59) U/L ALT 41 (21-72) U/L Alkaline Phosphatase 44 (38-126) U/L Albumin 3.1 L (3.5-5.0) g/dL Lungs: Respirations are even and nonlabored, breath sounds diminished bilaterally to auscultation. O2 sat: 99% on 4 L of oxygen delivered via nasal cannula I/S: 750 mL, patient gave return demonstration of proper use the incentive spirometer Heart: S1S2, regular rate and rhythm, bedside telemetry shows a normal sinus rhythm Sternum stable, chest incision clean with silverlon dressing clean and dry. Abdomen: Soft, Positive bowel sounds present in all 4 quadrants. CBGs: 105-147 mg/dL U/O: Good urine output Chest Tubes: Left pleural chest tube with 105 mL of serosanguineous drainage over the last 8 hours, 323 mL over the last 24 hours. Mediastinal chest tube with 55 mL of serosanguineous drainage over the last 8 hours, 185 mL over the last 24 hours. Right pleural chest tube with 26 mL of serosanguineous drainage over the last 8 hours, 165 mL over the last 24 hours. 24 hr Total: 673 mL Intake & Output 01/19/17 01/20/17 01/21/17 01/22/17 06:59 06:59 06:59 06:59 Intake Total 8524.816 5442.524 34.508 Output Total 4166 2108 Balance -2507.999 -792.476 34.508 Weight 155.1 kg 154 kg Active Medications Hydrocodone Bitart/Acetaminophen (Maceo 5-325) 2 each PO Q4HR PRN PRN Reason: Severe Pain Last Admin: 01/21/17 04:33 Dose: 2 each Hydrocodone Bitart/Acetaminophen (Maceo 5-325) 1 each PO Q4HR PRN PRN Reason: Moderate Pain Albuterol/Ipratropium (Duoneb 0.5 Mg-3 Mg/3 Ml Soln) 3 ml INHALATION RT-Q2H PRN PRN Reason: Shortness Of Breath Or Wheezing Last Admin: 01/20/17 11:28 Dose: 3 ml Aspirin (Aspirin) 325 mg PO DAILY [facility] Last Admin: 01/21/17 08:18 Dose: 325 mg Atorvastatin Calcium (Lipitor) 40 mg PO DAILY [facility] Last Admin: 01/21/17 08:19 Dose: 40 mg Benzocaine/Menthol (Cepacol Lozenge) 1 each MUCOUS MEM Q2H PRN PRN Reason: Sore Throat Bisacodyl (Dulcolax) 10 mg RECTAL DAILY PRN PRN Reason: Constipation Clopidogrel Bisulfate (Plavix) 75 mg PO DAILY [facility] Last Admin: 01/21/17 08:18 Dose: 75 mg Heparin Sodium (Porcine) (Heparin) 5,000 unit SQ Q8HR [facility] Last Admin: 01/21/17 08:19 Dose: 5,000 unit Insulin Aspart (Novolog Mix 70-30 Vial) 62 unit SQ AC-BRKFST [facility] Insulin Human Lispro (Humalog) 0 unit SQ ACHS [facility] PRN Reason: Protocol Last Admin: 01/21/17 09:43 Dose: 1 unit Insulin Human Lispro (Humalog) 15 unit SQ AC-SUPPER [facility] Insulin Human NPH (Humulin N) 15 unit SQ HS [facility] Magnesium Hydroxide (Milk Of Magnesia) 2,400 mg PO BID PRN PRN Reason: Constipation Metoprolol Tartrate (Lopressor) 50 mg PO BID [facility] Miscellaneous Information (Phosphorus Per Protocol) 1 each MISCELLANE DAILY PRN ; Protocol PRN Reason: Per Protocol Miscellaneous Information (Potassium Per Protocol) 1 each MISCELLANE DAILY PRN ; Protocol PRN Reason: Per Protocol Miscellaneous Information (Magnesium Per Protocol) 1 each MISCELLANE DAILY PRN ; Protocol PRN Reason: Per Protocol Multivitamins (Theragran) 1 each PO DAILY@1200 [facility] Last Admin: 01/21/17 08:19 Dose: 1 each Mupirocin (Bactroban Oint) 1 applic NASAL BID [facility] Stop: 01/22/17 21:01 Last Admin: 01/21/17 09:22 Dose: 1 applic Mupirocin (Bactroban Oint) 1 applic NASAL BID [facility] Ondansetron HCl (Zofran) 4 mg IVP Q6HR PRN PRN Reason: Nausea And Vomiting Last Admin: 01/20/17 00:57 Dose: 4 mg Pantoprazole Sodium (Protonix) 40 mg PO AC-BRKFST [facility] Last Admin: 01/21/17 08:19 Dose: 40 mg Senna/Docusate Sodium (Senokot-S) 2 each PO HS [facility] Last Admin: 01/20/17 21:21 Dose: 2 each Sodium Chloride (Saline Flush) 10 ml IV Q12HR [facility] Plan: Postoperative day #2, good progress Continue aggressive pulmonary toilet utilizing incentive spirometry, coughing and deep breathing, and inhalation treatments per respiratory therapy. Continue to increase activity as tolerated. Discontinue unnecessary lines and drains. Transfer to stepdown unit.
[2017-01-21 11:24] VITALS: BMI 46.0
[2017-01-21 11:55] LABS: Glucose,Whole Blood 178 mg/dL (75-99)
--- NOTE | 2017-01-21 15:27 | CONS ---
DATE OF CONSULTATION: Patient had bypass surgery on 01/19; I do not see any note from Dr. Davi Spencer, who had rounds on 01/19 and 01/20, so I am going to go ahead and dictate a consult to cover the surgery. Mr. Reynaldo Rico is a 61-year-old gentleman, moderately obese, diabetic, with hypertension, hyperlipidemia, history of stenting, who was noted to have severe distal left main stenosis and stenosis of the proximal left anterior descending along with severe disease involving the second diagonal branch of the left anterior descending; underwent bypass surgery by Dr. Carver, with WITT graft to the LAD, reverse saphenous venous graft to second diagonal, reverse saphenous venous graft to intermediate. Patient is extubated, sitting in a bedside chair, doing reasonably well. Denies any symptoms of chest pain or pressure or orthopnea. Patient does complain of coughs, which is expected from the recent surgery. Patient's medications prior to admission include: 1. Januvia 100 mg p.o. daily. 2. Metformin 1000 mg p.o. b.i.d. 3. Diovan 60 mg p.o. daily. 4. Effient 10 mg p.o. daily, which is on hold. 5. Metoprolol 50 mg p.o. daily. 6. Insulin 70/30, 90 units twice daily. 7. Fish oil capsules 1200 mg p.o. daily. 8. Lipitor 80 mg. 9. Aspirin 325 mg p.o. daily. Patient's past history and review of systems are essentially unremarkable other than what is stated in the presenting illness. Patient is moderately obese, hypertensive, hyperlipidemic, with diabetes. Former smoker. Physical examination revealed morbidly obese gentleman with a BMI of 46, pulse rate of 85 beats per minute and regular, blood pressure of 158/52, respirations of 26. Head normocephalic. HEENT unremarkable. Neck is supple. No thyroid enlargement. No bruit noted. Good carotid upstroke bilaterally. Chest is symmetrical. CARDIAC EXAMINATION: Regular rate and rhythm. S1 and S2. Lungs show some scattered rhonchi; otherwise unremarkable. Abdomen is soft. No organomegaly. Active bowel sounds. EXTREMITIES: Decreased pedal pulses. No pedal edema. CLOTHES WRINGER examination grossly within normal limits. Patient will be continued on current medications atorvastatin, aspirin, Bisacodyl, Plavix 75 mg p.o. daily along with insulin, Atrovent albuterol inhalers. Metoprolol tartrate has been increased to 50 mg p.o. b.i.d. Protonix 40 mg p.o. daily. Patient is making slow progress. Will continue to follow him with Dr. Carver and the steeler.
--- NOTE | 2017-01-21 15:52 | P.PN ---
Subjective Morbidly obese 61-year-old male patient, with established coronary artery disease who was found to have a positive stress test and subsequent cardiac catheterization showing distal left main disease and proximal LAD restenosis and a patent RCA stent. The patient is diabetic hypertensive and has hyperlipidemia. The patient was referred for cardiac bypass surgery. The patient was evaluated and underwent a three-vessel bypass surgery including WITT to LAD. The patient comes into the intensive care unit on I'm seeing this patient postop day #0. I evaluated and so the patient immediately after he arrived to the intensive care unit. I have an assist-control mode of ventilation at the rate of 12, FiO2 of 100%, PEEP of 5 and tidal volume of 600. Chest x-ray showing small lung volumes and ET tube is in a good location, Ballard-Divina catheter in place, the patient has 2 mediastinal, right pleural and left pleural chest tubes and all of them are in place. Hemodynamically the patient has a cardiac index of 3.1. PA pressures of 45/27. He is producing adequate amount of urine output. He is on no pressors at this point. He is sedated with Diprivan is calm and comfortable. Blood gases are still pending for now. Surgical wound site over the chest and lower extremities are dry clean and intact. I was told that the patient was a difficult intubation and he was intubated via glidoscope. . The patient is on an insulin drip at 3 units an hour. The patient is on a nitroglycerin drip at 5 g. The patient is on Diprivan drip for sedation. On 01/20/2079 seeing the patient follow-up. The patient is doing extremely well. The patient was weaned off the mechanical ventilator and the patient was extubated without any major difficulties. The patient is currently on high flow oxygen 8 L per minute nasal cannula. Today's chest x-ray shows small lung volumes and atelectatic changes bilaterally. Mediastinal chest tubes and thoracic chest tubes are all in place. There is sternal chest tubes are quite active at this point terms of drainage. Ballard-Divina catheter was removed after confirming a recent cardiac index this morning. The patient's producing adequate amount of urine output. Cleviprex is running at 1 mg. The patient has no chest pain. No change in mental status. No other significant events overnight. Insulin drip still being utilized for tighter blood sugar control. The patient is seen again today 01/21/2017 in follow-up in the intensive care unit. He is awake and alert in no acute distress. He is sitting up in chair at the bedside. He denies any significant shortness of breath, cough or congestion. He is pulling approximately 750 and his son of spirometer. Today' s chest x-ray reveals some atelectatic changes in the bases more so on the right. He has been maintaining good O2 saturations in the upper 90s on room air. He is afebrile. Her pain is well controlled. He has been up ambulating with assistance. Objective - Vital Signs Vital signs: Vital Signs Temp 97.1 F L 01/21/17 12:00 Pulse 78 01/21/17 15:42 Resp 18 01/21/17 15:42 BP 140/65 01/21/17 15:42 Pulse Ox 99 01/21/17 15:42 Intake & Output 01/20/17 01/21/17 01/21/17 18:59 06:59 18:59 Intake Total 660.5 655.024 54.508 Output Total 1243 865 170 Balance -582.5 -209.976 -115.492 Weight 154 kg 154 kg Intake: IV 538 432 20 Lactated Ringers 1,000 ml 460 360 20 @ 20 mls/hr IV .Q24H P[facility]AR Rx#:[id number] pressure bag 78 72 Intake, IV Titration 122.5 223.024 34.508 Amount Insulin Regular 100 unit 45.724 34.508 In Sodium Chloride 0.9% 100 ml @ Per Protocol IV .Q0M [facility] Rx#:[id number] Nitroglycerin-D5w Pmx 50 22.5 77.30 mg In Dextrose/Water 1 250ml.bag @ 5 MCG/MIN 1.5 mls/hr IV .Q24H [facility]AR Rx#: [id number] ceFAZolin 3 gm In Sodium 100 100 Chloride 0.9% 100 ml @ 100 mls/hr IVPB Q8HR P[facility]AR Rx#:[id number] Output: Chest Tube Drainage 548 125 0 Left Pleural 303 20 Mediastinal 110 75 0 Right Pleural 135 30 Drainage 30 80 Left Lower Calf 30 80 Urine 695 710 90 Other: Voiding Method Indwelling Catheter Indwelling Catheter Indwelling Catheter ABP, PAP, CO, CI - Last Documented Arterial Blood Pressure 143/54 Pulmonary Artery Pressure 48/22 Cardiac Output 9.5 Cardiac Index 3.6 - Exam Head exam was generally normal. There was no scleral icterus or corneal arcus. Mucous membranes were moist.Neck was supple and without jugular venous distension, thyromegaly, or carotid bruits. Carotids were easily palpable bilaterally. There was no adenopathy. There is significant crowding of the posterior oropharynx. There is no goiter or neck masses. Lungs sounds are diminished in lung bases sternal stable clean and intact. Cardiac exam revealed the PMI to be normally situated and sized. The rhythm was regular and no extrasystoles were noted during several minutes of auscultation. The first and second heart sounds were normal and physiologic splitting of the second heart sound was noted. There were no murmurs, rubs, clicks, or gallops.. Abdomen is obese soft nondistended.Examination of the extremities revealed easily palpable radial, femoral and pedal pulses. There was no cyanosis, clubbing or edema. Skin reveals dry clean and intact surgical wound sites. - Labs CBC & Chem 7: 01/21/17 04:20 01/21/17 04:20 Labs: Abnormal Lab Results - Last 24 Hours (Table) 01/20/17 01/20/17 01/20/17 Range/Units 16:13 17:21 19:06 RBC (4.30-5.90) m/uL Hgb (13.0-17.5) gm/dL Hct (39.0-53.0) % Plt Count (150-450) k/uL Lymphocytes # (1.0-4.8) k/uL BUN (9-20) mg/dL Glucose (74-99) mg/dL POC Glucose (mg/dL) 104 H 108 H 114 H (75-99) mg/dL Calcium (8.4-10.2) mg/dL Total Protein (6.3-8.2) g/dL Albumin (3.5-5.0) g/dL 01/20/17 01/20/17 01/20/17 Range/Units 20:00 20:58 22:01 RBC (4.30-5.90) m/uL Hgb (13.0-17.5) gm/dL Hct (39.0-53.0) % Plt Count (150-450) k/uL Lymphocytes # (1.0-4.8) k/uL BUN (9-20) mg/dL Glucose (74-99) mg/dL POC Glucose (mg/dL) 126 H 128 H 114 H (75-99) mg/dL Calcium (8.4-10.2) mg/dL Total Protein (6.3-8.2) g/dL Albumin (3.5-5.0) g/dL 01/20/17 01/21/17 01/21/17 Range/Units 23:08 00:04 01:20 RBC (4.30-5.90) m/uL Hgb (13.0-17.5) gm/dL Hct (39.0-53.0) % Plt Count (150-450) k/uL Lymphocytes # (1.0-4.8) k/uL BUN (9-20) mg/dL Glucose (74-99) mg/dL POC Glucose (mg/dL) 105 H 127 H 122 H (75-99) mg/dL Calcium (8.4-10.2) mg/dL Total Protein (6.3-8.2) g/dL Albumin (3.5-5.0) g/dL 01/21/17 01/21/17 01/21/17 Range/Units 03:10 04:17 04:20 RBC (4.30-5.90) m/uL Hgb (13.0-17.5) gm/dL Hct (39.0-53.0) % Plt Count (150-450) k/uL Lymphocytes # (1.0-4.8) k/uL BUN 23 H (9-20) mg/dL Glucose 106 H (74-99) mg/dL POC Glucose (mg/dL) 115 H 113 H (75-99) mg/dL Calcium 8.1 L (8.4-10.2) mg/dL Total Protein 5.4 L (6.3-8.2) g/dL Albumin 3.1 L (3.5-5.0) g/dL 01/21/17 01/21/17 01/21/17 Range/Units 04:20 05:15 06:08 RBC 2.95 L (4.30-5.90) m/uL Hgb 9.0 L (13.0-17.5) gm/dL Hct 28.3 L (39.0-53.0) % Plt Count 96 L (150-450) k/uL Lymphocytes # 0.9 L (1.0-4.8) k/uL BUN (9-20) mg/dL Glucose (74-99) mg/dL POC Glucose (mg/dL) 103 H 125 H (75-99) mg/dL Calcium (8.4-10.2) mg/dL Total Protein (6.3-8.2) g/dL Albumin (3.5-5.0) g/dL 01/21/17 01/21/17 Range/Units 07:58 11:51 RBC (4.30-5.90) m/uL Hgb (13.0-17.5) gm/dL Hct (39.0-53.0) % Plt Count (150-450) k/uL Lymphocytes # (1.0-4.8) k/uL BUN (9-20) mg/dL Glucose (74-99) mg/dL POC Glucose (mg/dL) 147 H 178 H (75-99) mg/dL Calcium (8.4-10.2) mg/dL Total Protein (6.3-8.2) g/dL Albumin (3.5-5.0) g/dL Assessment and Plan Plan: Assessment 1 multivessel coronary artery disease, status post two-vessel bypass and the patient is postop day #2. On 01/20/2017 the patient was weaned off the mechanical ventilated and the patient was extubated without any major difficulties. The patient is hemodynamically stable. The patient on no pressors. The patient developed postoperative ectopies and currently is on beta blockers. Cardiac rhythm is sinus. On 01/21/2017 the patient is sitting up in chair at the bedside. He is awake and alert. No significant arrhythmias. Maintaining good O2 saturations in the 90s on room air. Working well at the incentive spirometer. 2 postoperative vent management and pulmonary care. The patient is currently intubated on mechanical ventilator and this is quite expected postthoracotomy. Chest x-ray shows small lung volumes of this is probably related to his obesity. Based on FEV1 is noted of 43% of predicted. The patient is an ex- smoker. On 01/20/2017 the patient has been weaned off the mechanical ventilator and the patient extubated. Today's chest x-ray shows atelectatic changes bilaterally and the patient needs to work more aggressively on his incentive spirometer. Chest tubes are still in place. 3 obesity 4 diabetes mellitus currently on insulin drip for blood sugar control 5 hypertension 6 hyperlipidemia 7 degenerative arthritis with chronic pain syndrome involving the shoulder and the back and the knees bilaterally. Plan: The patient was seen and evaluated by Dr. Zarate. His chest x-ray and labs were reviewed. We've again encourage increased use of the incentive spirometer. He is cleared for transfer out of the intensive care unit today. We will increase his activity as tolerated. We'll continue to follow.
[2017-01-21 17:02] LABS: Glucose,Whole Blood 154 mg/dL (75-99)
[2017-01-21] MEDS ORDERED: INSULIN LISPRO (humaLOG) 300 UNIT/3 ML VIAL SQ SCH (17:30)
[2017-01-21] MEDS: METOPROLOL TARTRATE 50 MG TAB PO SCH (20:29)
[2017-01-21] MEDS: SENNOSIDES-DOCUSATE SODIUM 1 EACH TAB PO SCH (20:29)
[2017-01-21 20:49] LABS: Glucose,Whole Blood 235 mg/dL (75-99)
[2017-01-21] MEDS: INSULIN NPH 300 UNIT/3 ML VIAL SQ SCH (20:52)
[2017-01-22 02:10] LABS: Glucose,Whole Blood 219 mg/dL (75-99)
[2017-01-22] MEDS: HYDROcodone/APAP 5-325MG 1 EACH TAB PO PRN ×3 (03:28→19:50)
[2017-01-22 06:33] LABS: Glucose,Whole Blood 191 mg/dL (75-99)
[2017-01-22 06:43] LABS: CH 31.4; CHCM 32.4; HCT 29.7 % (39.0-53.0); HDW 2.76; HGB 9.5 gm/dL (13.0-17.5); MCH 31.4 pg (25.0-35.0); MCHC 32.2 g/dL (31.0-37.0); MCV 97.5 fL (80.0-100.0); Mean Platelet Volume 7.8; RBC 3.04 m/uL (4.30-5.90); RDW 13.5 % (11.5-15.5); WBC 8.2 k/uL (3.8-10.6)
[2017-01-22 06:56] LABS: Prothrombin Time 10.1 sec (9.0-12.0)
[2017-01-22 06:57] LABS: ALT 30 U/L (21-72); AST 30 U/L (17-59); Alkaline Phosphatase 59 U/L (38-126); Anion Gap 9 mmol/L; Blood Urea Nitrogen 28 mg/dL (9-20); Calcium 8.5 mg/dL (8.4-10.2); Carbon Dioxide 27 mmol/L (22-30); Chloride 99 mmol/L (98-107); Glucose 215 mg/dL (74-99); Non-African American GFR(MDRD) >60 (>60 ml/min/1.73 sqM); Sodium 135 mmol/L (137-145); Total Bilirubin 0.8 mg/dL (0.2-1.3); Total Protein 5.8 g/dL (6.3-8.2)
[2017-01-22] MEDS: INSULN ASP PRT/INSULIN ASPART 100 UNIT/ML 10 ML VIAL SQ SCH (07:07)
[2017-01-22] MEDS: PANTOPRAZOLE 40 MG TABLET PO SCH (07:08)
[2017-01-22] MEDS: INSULIN LISPRO (humaLOG) 300 UNIT/3 ML VIAL SQ SCH ×5 (07:08→21:08)
--- NOTE | 2017-01-22 07:18 | XR ---
EXAMINATION TYPE: XR chest 1V portable DATE OF EXAM: 01/22/2017 7:11 AM CLINICAL HISTORY: Difficulty breathing progress study. Post open cardiac surgery. TECHNIQUE: Single AP portable upright view of the chest is obtained. COMPARISON: Chest x-ray from one day earlier FINDINGS: There is cardiomegaly with moderate central vascular congestion and small bilateral pleura l effusions that remain present. There is interval removal of right-sided chest tube. Left-sided ches t tube is redemonstrated. Sternal wires and mediastinal clips are again seen. Overall low lung volume s is again identified. Visualized osseous structures are intact. IMPRESSION: Interval removal of right-sided chest tube. There is low lung volumes with cardiomegaly a nd central vascular congestion as well as small bilateral pleural effusions all redemonstrated.
--- NOTE | 2017-01-22 07:46 | P.PN ---
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 POD #3 beating heart pump-assisted triple-vessel coronary artery bypass grafting using the left internal mammary artery to the left anterior descending artery, reverse saphenous vein graft connected to the aorta using the PAS-Port device connected distally to the second diagonal artery, reverse saphenous vein graft connected to the aorta using the PAS-Port device and connected distally to the ramus intermedius artery. Endoscopic harvesting of the left greater saphenous vein. Intraoperative transesophageal echocardiogram and epi-aortic scanning. Sternal closure with cables and plating system using the [employer] system. Intraoperative graft flow measurements using the [employer] machine. Patient currently sitting up in the chair in no apparent distress. Eating breakfast. Only request is that he hopes his chest tube will be DC'd today. Objective - Vital Signs Vital signs: Vital Signs Temp 97.8 F 01/22/17 04:00 Pulse 80 01/22/17 04:00 Resp 22 01/22/17 04:00 BP 128/58 01/22/17 00:00 Pulse Ox 98 01/22/17 04:00 Intake & Output 01/21/17 01/22/17 01/22/17 18:59 06:59 18:59 Intake Total 54.508 960 Output Total 470 655 Balance -415.492 305 Weight 154 kg 153.2 kg Intake: IV 20 Lactated Ringers 1,000 ml 20 @ 20 mls/hr IV .Q24H [facility] Rx#:[id number] Intake, IV Titration 34.508 Amount Insulin Regular 100 unit 34.508 In Sodium Chloride 0.9% 100 ml @ Per Protocol IV .Q0M [facility] Rx#:[id number] Oral 960 Output: Chest Tube Drainage 0 10 Left Pleural 10 Mediastinal 0 Drainage 80 120 Left Lower Calf 80 120 Urine 390 525 Other: Voiding Method Indwelling Catheter Urinal # Voids 1 1 ABP, PAP, CO, CI - Last Documented Arterial Blood Pressure 143/54 Pulmonary Artery Pressure 48/22 Cardiac Output 9.5 Cardiac Index 3.6 - Constitutional General appearance: Present: cooperative, no acute distress - Respiratory Details: Lungs sounds diminished bilaterally. Respirations even, nonlabored. Currently on 4 L nasal cannula. Able to achieve 750 mL on his incentive spirometry. Effective cough. - Cardiovascular Details: S1, S2 present. Regular rate and rhythm, normal sinus rhythm on telemetry. One episode of bigeminy this morning at 6 AM which resolved spontaneously. Chest stable. Heart hugger in place with patient demonstrating appropriate use. Trace bilateral lower extremity edema present. Teds, SCDs present. - Gastrointestinal Gastrointestinal Comment(s): Abdomen soft, nontender, nondistended. Active bowel sounds 4 quadrants. Tolerating diet. - Genitourinary Genitourinary Comment(s): Continues to void clear, yellow urine per urinal. - Integumentary Integumentary Comment(s): Anterior chest incision covered with dry intact dressing. Left lower extremity EVH site well approximated with KEHINDE draining minimal serosanguineous drainage. - Musculoskeletal Musculoskeletal: Present: gait normal, strength equal bilaterally - Psychiatric Psychiatric: Present: A&O x's 3, appropriate affect, intact judgment & insight - Allied health notes Allied health notes reviewed: nursing - Labs CBC & Chem 7: 01/22/17 05:43 01/22/17 06:09 Labs: Abnormal Lab Results - Last 24 Hours (Table) 01/21/17 01/21/17 01/21/17 Range/Units 07:58 11:51 16:32 RBC (4.30-5.90) m/uL Hgb (13.0-17.5) gm/dL Hct (39.0-53.0) % Plt Count (150-450) k/uL Sodium (137-145) mmol/L BUN (9-20) mg/dL Glucose (74-99) mg/dL POC Glucose (mg/dL) 147 H 178 H 154 H (75-99) mg/dL Total Protein (6.3-8.2) g/dL Albumin (3.5-5.0) g/dL 01/21/17 01/22/17 01/22/17 Range/Units 20:48 02:06 05:43 RBC 3.04 L (4.30-5.90) m/uL Hgb 9.5 L (13.0-17.5) gm/dL Hct 29.7 L (39.0-53.0) % Plt Count 124 L (150-450) k/uL Sodium (137-145) mmol/L BUN (9-20) mg/dL Glucose (74-99) mg/dL POC Glucose (mg/dL) 235 H 219 H (75-99) mg/dL Total Protein (6.3-8.2) g/dL Albumin (3.5-5.0) g/dL 01/22/17 01/22/17 Range/Units 06:09 06:30 RBC (4.30-5.90) m/uL Hgb (13.0-17.5) gm/dL Hct (39.0-53.0) % Plt Count (150-450) k/uL Sodium 135 L (137-145) mmol/L BUN 28 H (9-20) mg/dL Glucose 215 H (74-99) mg/dL POC Glucose (mg/dL) 191 H (75-99) mg/dL Total Protein 5.8 L (6.3-8.2) g/dL Albumin 3.3 L (3.5-5.0) g/dL - Imaging and Cardiology Chest x-ray: report reviewed, image reviewed Assessment and Plan (1) Coronary artery disease Status: Acute (2) Hypertension Status: Acute (3) Hyperlipidemia Status: Acute (4) Diabetes mellitus Status: Acute (5) Obesity, morbid, BMI 40.0-49.9 Status: Acute Plan: 1. Continue aspirin, Plavix, beta rachel, statin. 2. Encourage incentive spirometry use. 3. Will DC left pleural chest tube, KEHINDE drain. 4. Encourage increased activity, ambulate in hallway 4 times daily. Physical therapy to follow. 5. GI/DVT prophylaxis. 6. Will monitor heart rate and rhythm closely and adjust medications as necessary. 7. More recommendations as patient progresses. Time with Patient: Greater than 30
[2017-01-22] MEDS: ASPIRIN 325 MG TAB PO SCH (09:12)
[2017-01-22] MEDS: HEPARIN SODIUM,PORCINE 5,000 UNIT/ML 1 ML VIAL SQ SCH ×3 (09:12→23:14)
[2017-01-22] MEDS: METOPROLOL TARTRATE 50 MG TAB PO SCH ×2 (09:12→19:52)
[2017-01-22] MEDS: ATORVASTATIN 40 MG TAB PO SCH (09:12)
[2017-01-22] MEDS: CLOPIDOGREL 75 MG TAB PO SCH (09:12)
[2017-01-22] MEDS: MUPIROCIN 2% OINT 22 GM TUBE NASAL SCH ×2 (09:13→19:51)
[2017-01-22] MEDS: VALSARTAN 80 MG TAB PO SCH (10:27)
[2017-01-22 11:33] LABS: Glucose,Whole Blood 250 mg/dL (75-99)
[2017-01-22] MEDS: MULTIVITAMINS, THERA 1 EACH TAB PO SCH (12:00)
--- NOTE | 2017-01-22 12:02 | P.PN ---
Progress Note - Text The patient is a 61-year-old gentleman who underwent triple vessel coronary artery bypass and is presently recovering on selective care. He is found in bed in no acute distress. He does complain of some back discomfort but denies any shortness of breath or unusual chest pain or nausea and vomiting. Vital signs reveal a temperature 97.2 his pulse is 85 and regular respirations are 20 and blood pressure 143/65 and he is 98% saturated on 2 L nasal cannula. Breath sounds are diminished without wheeze. Heart tones also are somewhat diminished but regular. No definite murmurs or rubs appreciated. Abdomen is obese but nontender. He states he has not had a bowel movement passing gas. compression appliances are in place in the lower extremity and no unusual edema noted. He is alert and oriented. Cranial nerves intact. No focal weakness noted. laboratory: White count is 8.2 with a hemoglobin 9.5 and a platelet count of 124. Stable. INR 1.0 Sodium 135 with a potassium of 5.0 and a CO2 content of 27. BUN of 28 with a creatinine 1.06 given him a GFR greater than 60. Blood sugars have been around 200. Albumin 3.3. Chest x-ray still shows low lung volumes and cardiomegaly with some central vascular congestion but appears to be somewhat improved over previous. patient appears overall to have a good urine output of 300-400 mL per shift and his weight is down from 154 kg to 153.2. Impressions and plans: Surgery note guarded. Patient will for all appears to be doing well post coronary artery bypass surgery. Patient is on his 70/30 insulin twice a day. Continue to monitor his blood sugars and cover with regular as needed. Encouraged to ambulate. Discussed with patient.
--- NOTE | 2017-01-22 12:05 | P.PN ---
Subjective Principal diagnosis: CAD/CABG This is a pleasant 61-year-old gentleman with a past medical history significant for CAD, hypertension, and dyslipidemia, as well as obesity, was experiencing chest discomfort concerning for angina. He underwent a heart catheterization which showed severe disease involving the left main and LAD. The patient underwent coronary artery bypass grafting 3 were received WITT to LAD, SVG to second diagonal, and SVG to ramus intermedius. He continues to be in normal sinus mechanism. Denies having any chest pain or discomfort but he continues to have some shortness of breath. He continues to be on dual antiplatelet therapy along with a statin and beta rachel. Objective - Vital Signs Vital signs: Vital Signs Temp 97.2 F L 01/22/17 08:00 Pulse 85 01/22/17 08:00 Resp 20 01/22/17 08:00 BP 143/65 01/22/17 08:00 Pulse Ox 98 01/22/17 08:00 Intake & Output 01/21/17 01/22/17 01/22/17 18:59 06:59 18:59 Intake Total 54.508 960 400 Output Total 470 655 400 Balance -415.492 305 0 Weight 154 kg 153.2 kg Intake: IV 20 Lactated Ringers 1,000 ml 20 @ 20 mls/hr IV .Q24H [facility] Rx#:[id number] Intake, IV Titration 34.508 Amount Insulin Regular 100 unit 34.508 In Sodium Chloride 0.9% 100 ml @ Per Protocol IV .Q0M [facility] Rx#:[id number] Oral 960 400 Output: Chest Tube Drainage 0 10 Left Pleural 10 Mediastinal 0 Drainage 80 120 Left Lower Calf 80 120 Urine 390 525 400 Other: Voiding Method Indwelling Catheter Urinal # Voids 1 1 ABP, PAP, CO, CI - Last Documented Arterial Blood Pressure 143/54 Pulmonary Artery Pressure 48/22 Cardiac Output 9.5 Cardiac Index 3.6 - Constitutional General appearance: Present: no acute distress - Labs CBC & Chem 7: 01/22/17 05:43 01/22/17 06:09 Labs: Abnormal Lab Results - Last 24 Hours (Table) 01/21/17 01/21/17 01/22/17 Range/Units 16:32 20:48 02:06 RBC (4.30-5.90) m/uL Hgb (13.0-17.5) gm/dL Hct (39.0-53.0) % Plt Count (150-450) k/uL Sodium (137-145) mmol/L BUN (9-20) mg/dL Glucose (74-99) mg/dL POC Glucose (mg/dL) 154 H 235 H 219 H (75-99) mg/dL Total Protein (6.3-8.2) g/dL Albumin (3.5-5.0) g/dL 01/22/17 01/22/17 01/22/17 Range/Units 05:43 06:09 06:30 RBC 3.04 L (4.30-5.90) m/uL Hgb 9.5 L (13.0-17.5) gm/dL Hct 29.7 L (39.0-53.0) % Plt Count 124 L (150-450) k/uL Sodium 135 L (137-145) mmol/L BUN 28 H (9-20) mg/dL Glucose 215 H (74-99) mg/dL POC Glucose (mg/dL) 191 H (75-99) mg/dL Total Protein 5.8 L (6.3-8.2) g/dL Albumin 3.3 L (3.5-5.0) g/dL 01/22/17 Range/Units 11:32 RBC (4.30-5.90) m/uL Hgb (13.0-17.5) gm/dL Hct (39.0-53.0) % Plt Count (150-450) k/uL Sodium (137-145) mmol/L BUN (9-20) mg/dL Glucose (74-99) mg/dL POC Glucose (mg/dL) 250 H (75-99) mg/dL Total Protein (6.3-8.2) g/dL Albumin (3.5-5.0) g/dL Assessment and Plan Plan: Assessment #1 CAD and status post CABG #2 systemic hypertension #3 dyslipidemia #4 obesity Plan #1 continue the patient on the current medical treatment #2 follow-up with the patient
--- NOTE | 2017-01-22 12:30 | P.PN ---
Subjective Morbidly obese 61-year-old male patient, with established coronary artery disease who was found to have a positive stress test and subsequent cardiac catheterization showing distal left main disease and proximal LAD restenosis and a patent RCA stent. The patient is diabetic hypertensive and has hyperlipidemia. The patient was referred for cardiac bypass surgery. The patient was evaluated and underwent a three-vessel bypass surgery including WITT to LAD. The patient comes into the intensive care unit on I'm seeing this patient postop day #0. I evaluated and so the patient immediately after he arrived to the intensive care unit. I have an assist-control mode of ventilation at the rate of 12, FiO2 of 100%, PEEP of 5 and tidal volume of 600. Chest x-ray showing small lung volumes and ET tube is in a good location, Elmore-Divina catheter in place, the patient has 2 mediastinal, right pleural and left pleural chest tubes and all of them are in place. Hemodynamically the patient has a cardiac index of 3.1. PA pressures of 45/27. He is producing adequate amount of urine output. He is on no pressors at this point. He is sedated with Diprivan is calm and comfortable. Blood gases are still pending for now. Surgical wound site over the chest and lower extremities are dry clean and intact. I was told that the patient was a difficult intubation and he was intubated via glidoscope. . The patient is on an insulin drip at 3 units an hour. The patient is on a nitroglycerin drip at 5 g. The patient is on Diprivan drip for sedation. On 01/20/2079 seeing the patient follow-up. The patient is doing extremely well. The patient was weaned off the mechanical ventilator and the patient was extubated without any major difficulties. The patient is currently on high flow oxygen 8 L per minute nasal cannula. Today's chest x-ray shows small lung volumes and atelectatic changes bilaterally. Mediastinal chest tubes and thoracic chest tubes are all in place. There is sternal chest tubes are quite active at this point terms of drainage. Elmore-Divina catheter was removed after confirming a recent cardiac index this morning. The patient's producing adequate amount of urine output. Cleviprex is running at 1 mg. The patient has no chest pain. No change in mental status. No other significant events overnight. Insulin drip still being utilized for tighter blood sugar control. The patient is seen again today 01/21/2017 in follow-up in the intensive care unit. He is awake and alert in no acute distress. He is sitting up in chair at the bedside. He denies any significant shortness of breath, cough or congestion. He is pulling approximately 750 and his son of spirometer. Today' s chest x-ray reveals some atelectatic changes in the bases more so on the right. He has been maintaining good O2 saturations in the upper 90s on room air. He is afebrile. Her pain is well controlled. He has been up ambulating. The patient is seen again today 01/22/2017 in follow-up on the selective care unit. He is awake and alert in no acute distress. He denies any worsening shortness of breath, cough or congestion. He is pulling approximate 700 MLS on his incentive spirometer. His chest x-ray reveals low lung volumes with cardiomegaly and central vascular congestion as well as small bilateral pleural effusions. Stable overall. maintaining good O2 saturations in the mid 90s on 2 L/m per nasal cannula. Afebrile.No leukocytosis. Hemoglobin stable. Objective - Vital Signs Vital signs: Vital Signs Temp 97.3 F L 01/22/17 12:00 Pulse 80 01/22/17 12:00 Resp 18 01/22/17 12:00 BP 137/60 01/22/17 12:00 Pulse Ox 94 L 01/22/17 12:00 Intake & Output 01/21/17 01/22/17 01/22/17 18:59 06:59 18:59 Intake Total 54.508 960 400 Output Total 470 655 700 Balance -415.492 305 -300 Weight 154 kg 153.2 kg Intake: IV 20 Lactated Ringers 1,000 ml 20 @ 20 mls/hr IV .Q24H PILAR Rx#:[id number] Intake, IV Titration 34.508 Amount Insulin Regular 100 unit 34.508 In Sodium Chloride 0.9% 100 ml @ Per Protocol IV .Q0M PILAR Rx#:[id number] Oral 960 400 Output: Chest Tube Drainage 0 10 Left Pleural 10 Mediastinal 0 Drainage 80 120 Left Lower Calf 80 120 Urine 390 525 700 Other: Voiding Method Indwelling Catheter Urinal # Voids 1 1 ABP, PAP, CO, CI - Last Documented Arterial Blood Pressure 143/54 Pulmonary Artery Pressure 48/22 Cardiac Output 9.5 Cardiac Index 3.6 - Exam Head exam was generally normal. There was no scleral icterus or corneal arcus. Mucous membranes were moist.Neck was supple and without jugular venous distension, thyromegaly, or carotid bruits. Carotids were easily palpable bilaterally. There was no adenopathy. There is significant crowding of the posterior oropharynx. There is no goiter or neck masses. Lungs sounds are diminished in lung bases sternal stable clean and intact. Cardiac exam revealed the PMI to be normally situated and sized. The rhythm was regular and no extrasystoles were noted during several minutes of auscultation. The first and second heart sounds were normal and physiologic splitting of the second heart sound was noted. There were no murmurs, rubs, clicks, or gallops.. Abdomen is obese soft nondistended.Examination of the extremities revealed easily palpable radial, femoral and pedal pulses. There was no cyanosis, clubbing or edema. Skin reveals dry clean and intact surgical wound sites. - Labs CBC & Chem 7: 01/22/17 05:43 01/22/17 06:09 Labs: Abnormal Lab Results - Last 24 Hours (Table) 01/21/17 01/21/17 01/22/17 Range/Units 16:32 20:48 02:06 RBC (4.30-5.90) m/uL Hgb (13.0-17.5) gm/dL Hct (39.0-53.0) % Plt Count (150-450) k/uL Sodium (137-145) mmol/L BUN (9-20) mg/dL Glucose (74-99) mg/dL POC Glucose (mg/dL) 154 H 235 H 219 H (75-99) mg/dL Total Protein (6.3-8.2) g/dL Albumin (3.5-5.0) g/dL 01/22/17 01/22/17 01/22/17 Range/Units 05:43 06:09 06:30 RBC 3.04 L (4.30-5.90) m/uL Hgb 9.5 L (13.0-17.5) gm/dL Hct 29.7 L (39.0-53.0) % Plt Count 124 L (150-450) k/uL Sodium 135 L (137-145) mmol/L BUN 28 H (9-20) mg/dL Glucose 215 H (74-99) mg/dL POC Glucose (mg/dL) 191 H (75-99) mg/dL Total Protein 5.8 L (6.3-8.2) g/dL Albumin 3.3 L (3.5-5.0) g/dL 01/22/17 Range/Units 11:32 RBC (4.30-5.90) m/uL Hgb (13.0-17.5) gm/dL Hct (39.0-53.0) % Plt Count (150-450) k/uL Sodium (137-145) mmol/L BUN (9-20) mg/dL Glucose (74-99) mg/dL POC Glucose (mg/dL) 250 H (75-99) mg/dL Total Protein (6.3-8.2) g/dL Albumin (3.5-5.0) g/dL Assessment and Plan Plan: Assessment 1 multivessel coronary artery disease, status post two-vessel bypass and the patient is postop day #2. On 01/20/2017 the patient was weaned off the mechanical ventilated and the patient was extubated without any major difficulties. The patient is hemodynamically stable. The patient on no pressors. The patient developed postoperative ectopies and currently is on beta blockers. Cardiac rhythm is sinus. On 01/21/2017 the patient is sitting up in chair at the bedside. He is awake and alert. No significant arrhythmias. Maintaining good O2 saturations in the 90s on room air. Working well at the incentive spirometer. 2 postoperative vent management and pulmonary care. The patient is currently intubated on mechanical ventilator and this is quite expected postthoracotomy. Chest x-ray shows small lung volumes of this is probably related to his obesity. Based on FEV1 is noted of 43% of predicted. The patient is an ex- smoker. On 01/20/2017 the patient has been weaned off the mechanical ventilator and the patient extubated. Today's chest x-ray shows atelectatic changes bilaterally and the patient needs to work more aggressively on his incentive spirometer. Chest tubes are still in place. 3 obesity 4 diabetes mellitus currently on insulin drip for blood sugar control 5 hypertension 6 hyperlipidemia 7 degenerative arthritis with chronic pain syndrome involving the shoulder and the back and the knees bilaterally. Plan: The patient was seen and evaluated by Dr. Zarate. His chest x-ray and labs were reviewed. We've again encourage the increased use of the incentive spirometer and cough and deep breathing exercises. We will increase his activity as tolerated. We'll continue to follow.
[2017-01-22 16:51] LABS: Glucose,Whole Blood 262 mg/dL (75-99)
[2017-01-22] MEDS: SENNOSIDES-DOCUSATE SODIUM 1 EACH TAB PO SCH (19:51)
[2017-01-22] MEDS: INSULIN NPH 300 UNIT/3 ML VIAL SQ SCH (19:52)
[2017-01-22 20:13] LABS: Glucose,Whole Blood 219 mg/dL (75-99)
[2017-01-22 20:16] LABS: Glucose,Whole Blood 212 mg/dL (75-99)
[2017-01-23 02:08] LABS: Glucose,Whole Blood 118 mg/dL (75-99)
[2017-01-23 06:52] LABS: CH 30.9; CHCM 32.4; HCT 28.3 % (39.0-53.0); HDW 2.84; HGB 9.4 gm/dL (13.0-17.5); MCH 31.7 pg (25.0-35.0); MCHC 33.1 g/dL (31.0-37.0); MCV 95.8 fL (80.0-100.0); Mean Platelet Volume 7.7; RBC 2.95 m/uL (4.30-5.90); RDW 13.5 % (11.5-15.5); WBC 6.2 k/uL (3.8-10.6)
[2017-01-23 06:55] LABS: Glucose,Whole Blood 147 mg/dL (75-99)
[2017-01-23 06:56] LABS: INR 0.9 (<1.1); Prothrombin Time 9.7 sec (9.0-12.0)
[2017-01-23] MEDS: INSULIN LISPRO (humaLOG) 300 UNIT/3 ML VIAL SQ SCH ×5 (06:59→21:25)
[2017-01-23] MEDS: PANTOPRAZOLE 40 MG TABLET PO SCH (06:59)
[2017-01-23 07:09] LABS: ALT 47 U/L (21-72); AST 50 U/L (17-59); Alkaline Phosphatase 55 U/L (38-126); Anion Gap 10 mmol/L; Blood Urea Nitrogen 42 mg/dL (9-20); Calcium 8.7 mg/dL (8.4-10.2); Carbon Dioxide 27 mmol/L (22-30); Chloride 101 mmol/L (98-107); Glucose 149 mg/dL (74-99); Non-African American GFR(MDRD) >60 (>60 ml/min/1.73 sqM); Potassium 4.4 mmol/L (3.5-5.1); Sodium 138 mmol/L (137-145); Total Bilirubin 0.7 mg/dL (0.2-1.3); Total Protein 6.1 g/dL (6.3-8.2)
[2017-01-23] MEDS: INSULN ASP PRT/INSULIN ASPART 100 UNIT/ML 10 ML VIAL SQ SCH (07:10)
--- NOTE | 2017-01-23 07:40 | XR ---
EXAMINATION TYPE: XR chest 2V DATE OF EXAM: 01/23/2017 6:26 AM COMPARISON: Prior chest x-ray 22 January 2017 HISTORY: Postop cardiac surgery TECHNIQUE: Frontal and lateral views of the chest are obtained. FINDINGS: Blunting of the posterior costophrenic angles is present. Increased AP diameter of the floyd st may be indicative of underlying COPD. Cardiomediastinal silhouette not significantly changed, hear t is enlarged. Left-sided chest tube has been removed. No sizable pneumothorax. There are overlying c ardiac leads. IMPRESSION: Interval chest tube removal. Probable basilar atelectasis. Postop changes.
[2017-01-23] MEDS: HEPARIN SODIUM,PORCINE 5,000 UNIT/ML 1 ML VIAL SQ SCH ×2 (07:44→16:53)
[2017-01-23] MEDS: MUPIROCIN 2% OINT 22 GM TUBE NASAL SCH ×2 (07:45→20:41)
[2017-01-23] MEDS: ATORVASTATIN 40 MG TAB PO SCH (07:45)
[2017-01-23] MEDS: CLOPIDOGREL 75 MG TAB PO SCH (07:45)
[2017-01-23] MEDS: METOPROLOL TARTRATE 50 MG TAB PO SCH ×2 (07:45→20:37)
[2017-01-23] MEDS: ASPIRIN 325 MG TAB PO SCH (07:45)
[2017-01-23] MEDS: VALSARTAN 80 MG TAB PO SCH (07:46)
--- NOTE | 2017-01-23 08:06 | P.PN ---
<Mellissa Lara - Last Filed: 01/23/17 08:00> Subjective Principal diagnosis: Double vessel coronary artery disease with left main disease, status post stenting to the left anterior descending artery and the right coronary artery, preserved left ventricular function, hypertension, hyperlipidemia, diabetes, obesity. POD #4 beating heart pump-assisted triple-vessel coronary artery bypass grafting using the left internal mammary artery to the left anterior descending artery, reverse saphenous vein graft connected to the aorta using the PAS-Port device connected distally to the second diagonal artery, reverse saphenous vein graft connected to the aorta using the PAS-Port device and connected distally to the ramus intermedius artery. Endoscopic harvesting of the left greater saphenous vein. Intraoperative transesophageal echocardiogram and epi-aortic scanning. Sternal closure with cables and plating system using the [employer] system. Intraoperative graft flow measurements using the Medistim machine. Patient currently sitting up in the chair in no apparent distress. Concerned about when he goes home being able to get into and out of the shower. Objective - Vital Signs Vital signs: Vital Signs Temp 97.9 F 01/23/17 03:57 Pulse 71 01/23/17 03:57 Resp 18 01/23/17 03:57 BP 124/60 01/23/17 03:57 Pulse Ox 93 L 01/23/17 03:57 Intake & Output 01/22/17 01/23/17 01/23/17 18:59 06:59 18:59 Intake Total 580 1420 Output Total 700 250 Balance -120 1170 Weight 151.4 kg Intake: Oral 580 1420 Output: Urine 700 250 Other: Voiding Method Urinal # Voids 1 ABP, PAP, CO, CI - Last Documented Arterial Blood Pressure 143/54 Pulmonary Artery Pressure 48/22 Cardiac Output 9.5 Cardiac Index 3.6 - Constitutional General appearance: Present: cooperative, no acute distress - Respiratory Details: Lungs sounds diminished bilaterally. Respirations even, nonlabored. Currently on room air. Able to achieve 750 mL on his incentive spirometry. - Cardiovascular Details: S1, S2 present. Regular rate and rhythm, normal sinus rhythm on telemetry. No events noted overnight. Chest stable. Heart hugger in place with patient demonstrating appropriate use. Bilateral lower extremity edema present. Teds, SCDs present. - Gastrointestinal Gastrointestinal Comment(s): Abdomen soft, nontender, nondistended. Active bowel sounds 4 quadrants. Tolerating diet. - Genitourinary Genitourinary Comment(s): Voiding clear, yellow urine per urinal. - Integumentary Integumentary Comment(s): Anterior chest incision covered with dry intact dressing. Left lower extremity EVH site approximated with still draining serous fluid. - Musculoskeletal Musculoskeletal: Present: gait normal, strength equal bilaterally - Psychiatric Psychiatric: Present: A&O x's 3, appropriate affect, intact judgment & insight - Labs CBC & Chem 7: 01/23/17 06:31 01/23/17 06:31 Labs: Abnormal Lab Results - Last 24 Hours (Table) 01/22/17 01/22/17 01/22/17 Range/Units 11:32 16:49 20:11 RBC (4.30-5.90) m/uL Hgb (13.0-17.5) gm/dL Hct (39.0-53.0) % BUN (9-20) mg/dL Glucose (74-99) mg/dL POC Glucose (mg/dL) 250 H 262 H 219 H (75-99) mg/dL Total Protein (6.3-8.2) g/dL Albumin (3.5-5.0) g/dL 01/22/17 01/23/17 01/23/17 Range/Units 20:14 02:06 06:31 RBC 2.95 L (4.30-5.90) m/uL Hgb 9.4 L (13.0-17.5) gm/dL Hct 28.3 L (39.0-53.0) % BUN (9-20) mg/dL Glucose (74-99) mg/dL POC Glucose (mg/dL) 212 H 118 H (75-99) mg/dL Total Protein (6.3-8.2) g/dL Albumin (3.5-5.0) g/dL 01/23/17 01/23/17 Range/Units 06:31 06:43 RBC (4.30-5.90) m/uL Hgb (13.0-17.5) gm/dL Hct (39.0-53.0) % BUN 42 H (9-20) mg/dL Glucose 149 H (74-99) mg/dL POC Glucose (mg/dL) 147 H (75-99) mg/dL Total Protein 6.1 L (6.3-8.2) g/dL Albumin 3.3 L (3.5-5.0) g/dL - Imaging and Cardiology Chest x-ray: report reviewed, image reviewed Assessment and Plan (1) Coronary artery disease Status: Acute (2) Hypertension Status: Acute (3) Hyperlipidemia Status: Acute (4) Diabetes mellitus Status: Acute (5) Obesity, morbid, BMI 40.0-49.9 Status: Acute Plan: 1. Continue aspirin, Plavix, beta rachel, statin. 2. Encourage incentive spirometry use. 3. BUN increased from 28-42. Will hold Diovan on for now, encourage oral intake of fluids. 4. Encourage increased activity, ambulate in hallway 4 times daily. Physical therapy to follow. 5. We'll consult occupational therapy for evaluation and recommendation. 6. GI/DVT prophylaxis. 7. Will monitor heart rate and rhythm closely and adjust medications as necessary. 8. Anticipate discharge in the next 24-48 hours. Time with Patient: Greater than 30 <Kike Mattson - Last Filed: 01/23/17 11:08> Objective - Vital Signs Vital signs: Vital Signs Temp 97.4 F L 01/23/17 08:00 Pulse 88 01/23/17 08:00 Resp 16 01/23/17 08:00 BP 141/60 01/23/17 08:00 Pulse Ox 93 L 01/23/17 08:00 Intake & Output 01/22/17 01/23/17 01/23/17 18:59 06:59 18:59 Intake Total 580 1420 120 Output Total 700 250 300 Balance -120 1170 -180 Weight 151.4 kg Intake: Oral 580 1420 120 Output: Urine 700 250 300 Other: Voiding Method Urinal # Voids 1 ABP, PAP, CO, CI - Last Documented Arterial Blood Pressure 143/54 Pulmonary Artery Pressure 48/22 Cardiac Output 9.5 Cardiac Index 3.6 - Labs CBC & Chem 7: 01/23/17 06:31 01/23/17 06:31 Labs: Abnormal Lab Results - Last 24 Hours (Table) 01/22/17 01/22/17 01/22/17 Range/Units 11:32 16:49 20:11 RBC (4.30-5.90) m/uL Hgb (13.0-17.5) gm/dL Hct (39.0-53.0) % BUN (9-20) mg/dL Glucose (74-99) mg/dL POC Glucose (mg/dL) 250 H 262 H 219 H (75-99) mg/dL Total Protein (6.3-8.2) g/dL Albumin (3.5-5.0) g/dL 01/22/17 01/23/17 01/23/17 Range/Units 20:14 02:06 06:31 RBC 2.95 L (4.30-5.90) m/uL Hgb 9.4 L (13.0-17.5) gm/dL Hct 28.3 L (39.0-53.0) % BUN (9-20) mg/dL Glucose (74-99) mg/dL POC Glucose (mg/dL) 212 H 118 H (75-99) mg/dL Total Protein (6.3-8.2) g/dL Albumin (3.5-5.0) g/dL 01/23/17 01/23/17 Range/Units 06:31 06:43 RBC (4.30-5.90) m/uL Hgb (13.0-17.5) gm/dL Hct (39.0-53.0) % BUN 42 H (9-20) mg/dL Glucose 149 H (74-99) mg/dL POC Glucose (mg/dL) 147 H (75-99) mg/dL Total Protein 6.1 L (6.3-8.2) g/dL Albumin 3.3 L (3.5-5.0) g/dL Assessment and Plan Plan: The patient was seen and examined. I agree with the above assessment and plan. Overall he looks good. He continues to have bigeminy which we're treating with Lopressor. His BUN and creatinine did take a bump overnight. His Diovan was discontinued and we will encourage by mouth fluid intake. He will likely be discharged home tomorrow.
[2017-01-23] MEDS: HYDROcodone/APAP 5-325MG 1 EACH TAB PO PRN ×2 (11:11→20:31)
[2017-01-23] MEDS: MULTIVITAMINS, THERA 1 EACH TAB PO SCH (11:12)
[2017-01-23 11:54] LABS: Glucose,Whole Blood 264 mg/dL (75-99)
--- NOTE | 2017-01-23 12:00 | P.PN ---
Subjective Morbidly obese 61-year-old male patient, with established coronary artery disease who was found to have a positive stress test and subsequent cardiac catheterization showing distal left main disease and proximal LAD restenosis and a patent RCA stent. The patient is diabetic hypertensive and has hyperlipidemia. The patient was referred for cardiac bypass surgery. The patient was evaluated and underwent a three-vessel bypass surgery including WITT to LAD. The patient comes into the intensive care unit on I'm seeing this patient postop day #0. I evaluated and so the patient immediately after he arrived to the intensive care unit. I have an assist-control mode of ventilation at the rate of 12, FiO2 of 100%, PEEP of 5 and tidal volume of 600. Chest x-ray showing small lung volumes and ET tube is in a good location, Roxton-Divina catheter in place, the patient has 2 mediastinal, right pleural and left pleural chest tubes and all of them are in place. Hemodynamically the patient has a cardiac index of 3.1. PA pressures of 45/27. He is producing adequate amount of urine output. He is on no pressors at this point. He is sedated with Diprivan is calm and comfortable. Blood gases are still pending for now. Surgical wound site over the chest and lower extremities are dry clean and intact. I was told that the patient was a difficult intubation and he was intubated via glidoscope. . The patient is on an insulin drip at 3 units an hour. The patient is on a nitroglycerin drip at 5 g. The patient is on Diprivan drip for sedation. On 01/20/2079 seeing the patient follow-up. The patient is doing extremely well. The patient was weaned off the mechanical ventilator and the patient was extubated without any major difficulties. The patient is currently on high flow oxygen 8 L per minute nasal cannula. Today's chest x-ray shows small lung volumes and atelectatic changes bilaterally. Mediastinal chest tubes and thoracic chest tubes are all in place. There is sternal chest tubes are quite active at this point terms of drainage. Roxton-Divina catheter was removed after confirming a recent cardiac index this morning. The patient's producing adequate amount of urine output. Cleviprex is running at 1 mg. The patient has no chest pain. No change in mental status. No other significant events overnight. Insulin drip still being utilized for tighter blood sugar control. On 01/21/2017 and 01/22/2017, the patient improved considerably to the point where the patient got moved out of the intensive care unit. On 01/23/2070 the patient is being seen in follow-up. Chest is overall removed. The patient is on room air oxygen. Wounds are being dressed appropriately and lower extremities. No fever. No chills. No night sweats. Hemodynamically stable. No hypoglycemia. No chest pain. No other significant events over the past 24 hours. Discharge planning is in progress. Objective - Vital Signs Vital signs: Vital Signs Temp 97.4 F L 01/23/17 08:00 Pulse 88 01/23/17 08:00 Resp 16 01/23/17 08:00 BP 141/60 01/23/17 08:00 Pulse Ox 93 L 01/23/17 08:00 Intake & Output 01/22/17 01/23/17 01/23/17 18:59 06:59 18:59 Intake Total 580 1420 120 Output Total 700 250 300 Balance -120 1170 -180 Weight 151.4 kg Intake: Oral 580 1420 120 Output: Urine 700 250 300 Other: Voiding Method Urinal # Voids 1 ABP, PAP, CO, CI - Last Documented Arterial Blood Pressure 143/54 Pulmonary Artery Pressure 48/22 Cardiac Output 9.5 Cardiac Index 3.6 - Exam Head exam was generally normal. There was no scleral icterus or corneal arcus. Mucous membranes were moist.Neck was supple and without jugular venous distension, thyromegaly, or carotid bruits. Carotids were easily palpable bilaterally. There was no adenopathy. There is significant crowding of the posterior oropharynx. There is no goiter or neck masses. Lungs sounds are diminished in lung bases along with some few crackles. Sternum stable clean and intact.Cardiac exam revealed the PMI to be normally situated and sized. The rhythm was regular and no extrasystoles were noted during several minutes of auscultation. The first and second heart sounds were normal and physiologic splitting of the second heart sound was noted. There were no murmurs, rubs, clicks, or gallops.Abdominal exam revealed normal bowel sounds. The abdomen was soft, non-tender, and without masses, organomegaly, or appreciable enlargement of the abdominal aorta.Examination of the extremities revealed easily palpable radial, femoral and pedal pulses. There was no cyanosis, clubbing or edema. There is trace edema in lower oximetry is bilaterally and the surgical wound sites are all dry clean and intact. - Labs CBC & Chem 7: 01/23/17 06:31 01/23/17 06:31 Labs: Abnormal Lab Results - Last 24 Hours (Table) 01/22/17 01/22/17 01/22/17 Range/Units 16:49 20:11 20:14 RBC (4.30-5.90) m/uL Hgb (13.0-17.5) gm/dL Hct (39.0-53.0) % BUN (9-20) mg/dL Glucose (74-99) mg/dL POC Glucose (mg/dL) 262 H 219 H 212 H (75-99) mg/dL Total Protein (6.3-8.2) g/dL Albumin (3.5-5.0) g/dL 01/23/17 01/23/17 01/23/17 Range/Units 02:06 06:31 06:31 RBC 2.95 L (4.30-5.90) m/uL Hgb 9.4 L (13.0-17.5) gm/dL Hct 28.3 L (39.0-53.0) % BUN 42 H (9-20) mg/dL Glucose 149 H (74-99) mg/dL POC Glucose (mg/dL) 118 H (75-99) mg/dL Total Protein 6.1 L (6.3-8.2) g/dL Albumin 3.3 L (3.5-5.0) g/dL 01/23/17 01/23/17 Range/Units 06:43 11:52 RBC (4.30-5.90) m/uL Hgb (13.0-17.5) gm/dL Hct (39.0-53.0) % BUN (9-20) mg/dL Glucose (74-99) mg/dL POC Glucose (mg/dL) 147 H 264 H (75-99) mg/dL Total Protein (6.3-8.2) g/dL Albumin (3.5-5.0) g/dL Assessment and Plan Plan: Assessment 1 multivessel coronary artery disease, status post two-vessel bypass and the patient is postop day #4 2 postoperative bilateral pulmonary at length any changes in lung bases, utilizing incentive spirometer. Oxidation is improved significantly. 3 obesity 4 diabetes mellitus currently on insulin drip for blood sugar control 5 hypertension 6 hyperlipidemia 7 degenerative arthritis with chronic pain syndrome involving the shoulder and the back and the knees bilaterally. 8 postoperative anemia, hemoglobin is at 9.4. Plan Patient is stable. Continue IS . Discharge planning is in progress.
--- NOTE | 2017-01-23 12:34 | P.PN ---
Subjective Principal diagnosis: CAD/CABG This is a pleasant 61-year-old gentleman with a past medical history significant for CAD, hypertension, and dyslipidemia, as well as obesity, was experiencing chest discomfort concerning for angina. He underwent a heart catheterization which showed severe disease involving the left main and LAD. The patient underwent coronary artery bypass grafting 3 were received WITT to LAD, SVG to second diagonal, and SVG to ramus intermedius. He continues to be in normal sinus mechanism. Denies having any chest pain or discomfort but he continues to have some shortness of breath. He continues to be on dual antiplatelet therapy along with a statin and beta rachel. We will continue following up with the patient Objective - Vital Signs Vital signs: Vital Signs Temp 97.4 F L 01/23/17 08:00 Pulse 88 01/23/17 08:00 Resp 16 01/23/17 08:00 BP 141/60 01/23/17 08:00 Pulse Ox 93 L 01/23/17 08:00 Intake & Output 01/22/17 01/23/17 01/23/17 18:59 06:59 18:59 Intake Total 580 1420 120 Output Total 700 250 300 Balance -120 1170 -180 Weight 151.4 kg Intake: Oral 580 1420 120 Output: Urine 700 250 300 Other: Voiding Method Urinal # Voids 1 ABP, PAP, CO, CI - Last Documented Arterial Blood Pressure 143/54 Pulmonary Artery Pressure 48/22 Cardiac Output 9.5 Cardiac Index 3.6 - Constitutional General appearance: Present: no acute distress - Labs CBC & Chem 7: 01/23/17 06:31 01/23/17 06:31 Labs: Abnormal Lab Results - Last 24 Hours (Table) 01/22/17 01/22/17 01/22/17 Range/Units 16:49 20:11 20:14 RBC (4.30-5.90) m/uL Hgb (13.0-17.5) gm/dL Hct (39.0-53.0) % BUN (9-20) mg/dL Glucose (74-99) mg/dL POC Glucose (mg/dL) 262 H 219 H 212 H (75-99) mg/dL Total Protein (6.3-8.2) g/dL Albumin (3.5-5.0) g/dL 01/23/17 01/23/17 01/23/17 Range/Units 02:06 06:31 06:31 RBC 2.95 L (4.30-5.90) m/uL Hgb 9.4 L (13.0-17.5) gm/dL Hct 28.3 L (39.0-53.0) % BUN 42 H (9-20) mg/dL Glucose 149 H (74-99) mg/dL POC Glucose (mg/dL) 118 H (75-99) mg/dL Total Protein 6.1 L (6.3-8.2) g/dL Albumin 3.3 L (3.5-5.0) g/dL 01/23/17 01/23/17 Range/Units 06:43 11:52 RBC (4.30-5.90) m/uL Hgb (13.0-17.5) gm/dL Hct (39.0-53.0) % BUN (9-20) mg/dL Glucose (74-99) mg/dL POC Glucose (mg/dL) 147 H 264 H (75-99) mg/dL Total Protein (6.3-8.2) g/dL Albumin (3.5-5.0) g/dL Assessment and Plan Plan: Assessment #1 CAD and status post CABG #2 systemic hypertension #3 dyslipidemia #4 obesity Plan #1 continue the patient on the current medical treatment #2 follow-up with the patient
[2017-01-23 16:45] LABS: Glucose,Whole Blood 134 mg/dL (75-99)
[2017-01-23] MEDS: SENNOSIDES-DOCUSATE SODIUM 1 EACH TAB PO SCH (20:31)
[2017-01-23] MEDS: INSULIN NPH 300 UNIT/3 ML VIAL SQ SCH (20:38)
[2017-01-23 21:43] LABS: Glucose,Whole Blood 178 mg/dL (75-99)
[2017-01-24 02:15] LABS: Glucose,Whole Blood 133 mg/dL (75-99)
[2017-01-24] MEDS: HEPARIN SODIUM,PORCINE 5,000 UNIT/ML 1 ML VIAL SQ SCH ×2 (02:35→10:05)
[2017-01-24] MEDS: INSULIN LISPRO (humaLOG) 300 UNIT/3 ML VIAL SQ SCH ×2 (06:34→12:16)
[2017-01-24] MEDS: PANTOPRAZOLE 40 MG TABLET PO SCH (06:34)
[2017-01-24 06:35] LABS: Glucose,Whole Blood 163 mg/dL (75-99)
[2017-01-24] MEDS: INSULN ASP PRT/INSULIN ASPART 100 UNIT/ML 10 ML VIAL SQ SCH ×2 (07:07→07:38)
[2017-01-24 07:11] LABS: CH 30.7; CHCM 32.5; HCT 28.3 % (39.0-53.0); HDW 2.96; MCH 30.4 pg (25.0-35.0); MCV 95.1 fL (80.0-100.0); Mean Platelet Volume 6.9; RBC 2.97 m/uL (4.30-5.90); RDW 13.6 % (11.5-15.5); WBC 5.3 k/uL (3.8-10.6)
[2017-01-24 07:20] LABS: Prothrombin Time 9.9 sec (9.0-12.0)
[2017-01-24 07:32] LABS: ALT 69 U/L (21-72); AST 70 U/L (17-59); Alkaline Phosphatase 59 U/L (38-126); Anion Gap 12 mmol/L; Blood Urea Nitrogen 44 mg/dL (9-20); Calcium 8.6 mg/dL (8.4-10.2); Carbon Dioxide 26 mmol/L (22-30); Chloride 101 mmol/L (98-107); Glucose 162 mg/dL (74-99); Non-African American GFR(MDRD) >60 (>60 ml/min/1.73 sqM); Potassium 4.4 mmol/L (3.5-5.1); Sodium 139 mmol/L (137-145); Total Bilirubin 0.7 mg/dL (0.2-1.3); Total Protein 5.9 g/dL (6.3-8.2)
--- NOTE | 2017-01-24 07:45 | P.PN ---
Progress Note - Text the patient is a 61-year-old gentleman who has underlying obesity along with hypertension and diabetes and hyperlipidemia who presented with chest pain and underwent heart catheterization revealing coronary artery disease. Patient underwent coronary artery bypass grafting 3. He is presently on selective care recovering. This morning he is found up in a chair at the side of the bed getting ready to eat breakfast. No unusual complaints this morning. temperature is 98.8 with a pulse of 81 and respirations 20. Blood pressures varied from as low as 96/56 during the night to 176/83 this morning. He is 96% saturated on room air. Respirations are normal and unlabored. Monitor pattern is regular. No neurological deficits. Laboratory: White count is 5.3 with hemoglobin of 9 and a platelet count of 181. Blood sugar this morning was 163. Impressions and plans: The patient continues to gradually improve. Anticipating possible discharge to home soon.
[2017-01-24] MEDS: CLOPIDOGREL 75 MG TAB PO SCH (10:06)
[2017-01-24] MEDS: ASPIRIN 325 MG TAB PO SCH (10:06)
[2017-01-24] MEDS: ATORVASTATIN 40 MG TAB PO SCH (10:06)
[2017-01-24] MEDS: MUPIROCIN 2% OINT 22 GM TUBE NASAL SCH (10:06)
[2017-01-24] MEDS: METOPROLOL TARTRATE 50 MG TAB PO SCH (10:06)
[2017-01-24] MEDS: HYDROcodone/APAP 5-325MG 1 EACH TAB PO PRN ×2 (10:33→16:00)
--- NOTE | 2017-01-24 11:22 | CDI ---
In responding to this query, please exercise your independent professional judgment. The [facility] Coding Staff and Clinical Documentation Specialists appreciate your assistance in clarifying documentation, maintaining compliance with coding guidelines, accurately documenting patients condition and capturing severity of illness. The fact that a question is asked does not imply that any particular answer is desired or expected. Communication forms are a method of clarifying documentation and are not made part of the Legal Health Record. Thank you in advance for your clarification. Last Revision, September 2015 Rolando Mason [address] [facility] [place] [address] Documentation Clarification Form Date: 01/24/2017 11:14:00 AM From: Shannon Oliva CCS, CCDS Admit Date: 01/19/2017 6:35:00 AM Patient Name: Reynaldo Rico Visit Number: [id number] Discharge Date: Dr. Radha Zarate: A diagnosis of anemia lacks specificity to accurately reflect your patients severity of condition and clarification is needed. Patient history/risk factors: 61 yo male, POD #5 status post CABG x3 for CAD. Clinical Indicators: Hemoglobin: 01/19 12.4; 01/24 9.0 Hematocrit: 01/19 36.9; . 28.3 Treatment: Daily H & H, IV fluids In order to capture the severity of condition, please clarify the type of anemia and etiology if known: Acute blood loss anemia Acute on chronic blood loss anemia Chronic blood loss anemia Iron deficiency anemia Hemolytic anemia Drug induced anemia Unable to determine Other, please specify Please document in your progress notes and discharge summary in order to capture severity of illness and risk of mortality. Include clinical findings that support your diagnosis. FYI: Press F11 to launch patient chart. Place X here if this finding has no clinical significance, is not applicable or if you are not able to provide any additional documentation. Thank You. ANGEL
[2017-01-24 11:43] LABS: Glucose,Whole Blood 256 mg/dL (75-99)
[2017-01-24] MEDS: MULTIVITAMINS, THERA 1 EACH TAB PO SCH (12:16)
[2017-01-24 12:30] LABS: ABG Base Excess 0.7 mmol/L; ABG HCO3 25 mmol/L (21-25); ABG Oxygen Saturation 99.9 % (94-97); ABG PCO2 43 mmHg (35-45); ABG PH 7.39 (7.35-7.45); ABG PO2 264 mmHg (83-108); ABG TCO2 27 mmol/L (19-24)
[2017-01-24 12:31] LABS: ABG Base Excess 0.3 mmol/L; ABG HCO3 26 mmol/L (21-25); ABG Oxygen Saturation 99.8 % (94-97); ABG PCO2 47 mmHg (35-45); ABG PH 7.36 (7.35-7.45); ABG PO2 247 mmHg (83-108); ABG TCO2 27 mmol/L (19-24)
[2017-01-24 12:32] LABS: ABG Base Excess 0.6 mmol/L; ABG HCO3 24 mmol/L (21-25); ABG PCO2 38 mmHg (35-45); ABG PH 7.43 (7.35-7.45); ABG PO2 371 mmHg (83-108); ABG TCO2 26 mmol/L (19-24)
[2017-01-24 12:34] LABS: ABG Base Excess 0.6 mmol/L; ABG HCO3 25 mmol/L (21-25); ABG PCO2 40 mmHg (35-45); ABG PH 7.41 (7.35-7.45); ABG PO2 368 mmHg (83-108); ABG TCO2 26 mmol/L (19-24)
[2017-01-24 12:35] LABS: ABG Base Excess 2.7 mmol/L; ABG HCO3 27 mmol/L (21-25); ABG Oxygen Saturation 99.9 % (94-97); ABG PCO2 41 mmHg (35-45); ABG PH 7.43 (7.35-7.45); ABG PO2 297 mmHg (83-108); ABG TCO2 28 mmol/L (19-24)
[2017-01-24 12:36] LABS: ABG Base Excess 0.8 mmol/L; ABG HCO3 25 mmol/L (21-25); ABG Oxygen Saturation 99.6 % (94-97); ABG PCO2 41 mmHg (35-45); ABG PH 7.41 (7.35-7.45); ABG PO2 181 mmHg (83-108); ABG TCO2 26 mmol/L (19-24)
[2017-01-24 12:37] LABS: ABG Base Excess -0.7 mmol/L; ABG HCO3 24 mmol/L (21-25); ABG Oxygen Saturation 99.9 % (94-97); ABG PCO2 41 mmHg (35-45); ABG PH 7.38 (7.35-7.45); ABG PO2 353 mmHg (83-108); ABG TCO2 25 mmol/L (19-24)
[2017-01-24 12:39] LABS: ABG Base Excess -0.5 mmol/L; ABG HCO3 24 mmol/L (21-25); ABG Oxygen Saturation 99.9 % (94-97); ABG PCO2 42 mmHg (35-45); ABG PH 7.38 (7.35-7.45); ABG PO2 300 mmHg (83-108); ABG TCO2 26 mmol/L (19-24)
--- NOTE | 2017-01-24 13:56 | P.PN ---
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 POD #5 beating heart pump-assisted triple-vessel coronary artery bypass grafting using the left internal mammary artery to the left anterior descending artery, reverse saphenous vein graft connected to the aorta using the PAS-Port device connected distally to the second diagonal artery, reverse saphenous vein graft connected to the aorta using the PAS-Port device and connected distally to the ramus intermedius artery. Endoscopic harvesting of the left greater saphenous vein. Intraoperative transesophageal echocardiogram and epi-aortic scanning. Sternal closure with cables and plating system using the TriGlucoTec system. Intraoperative graft flow measurements using the Medistim machine. Patient currently sitting up in the chair in no apparent distress. Patient states he's not quite sure he is ready to go home yet but is willing to see how he does today. Objective - Vital Signs Vital signs: Vital Signs Temp 98.8 F 01/24/17 04:00 Pulse 81 01/24/17 04:00 Resp 20 01/24/17 04:00 BP 176/83 01/24/17 04:00 Pulse Ox 96 01/24/17 04:00 Intake & Output 01/23/17 01/24/17 01/24/17 18:59 06:59 18:59 Intake Total 238 960 Output Total 550 250 Balance -312 710 Intake: Oral 238 960 Output: Urine 550 250 Other: Voiding Method Urinal # Voids 0 1 # Bowel Movements 0 ABP, PAP, CO, CI - Last Documented Arterial Blood Pressure 143/54 Pulmonary Artery Pressure 48/22 Cardiac Output 9.5 Cardiac Index 3.6 - Constitutional General appearance: Present: cooperative, no acute distress, obese - Respiratory Details: Lungs sounds diminished bilaterally. Respirations even, nonlabored. Remains on room air. Able to achieve 1250 mL on incentive spirometry. Effective cough. - Cardiovascular Details: S1, S2 present. Regular rate and rhythm, normal sinus rhythm on telemetry. Occasional PVCs noted last night but no bigeminy. Chest stable. Heart hugger in place patient demonstrating appropriate use. Bilateral lower extremity edema present. Teds, SCDs present. - Gastrointestinal Gastrointestinal Comment(s): Abdomen soft, nontender, nondistended. Active bowel sounds 4 quadrants. Tolerating diet. - Genitourinary Genitourinary Comment(s): Continues to void clear, yellow urine. - Integumentary Integumentary Comment(s): Anterior chest incision covered with dry intact dressing. Left lower extremity EVH site well approximated with Dermabond dressing. - Musculoskeletal Musculoskeletal: Present: gait normal, strength equal bilaterally - Psychiatric Psychiatric: Present: A&O x's 3, appropriate affect, intact judgment & insight - Allied health notes Allied health notes reviewed: PT - Labs CBC & Chem 7: 01/24/17 06:20 01/24/17 06:20 Labs: Abnormal Lab Results - Last 24 Hours (Table) 01/23/17 01/23/17 01/23/17 Range/Units 11:52 16:44 21:14 RBC (4.30-5.90) m/uL Hgb (13.0-17.5) gm/dL Hct (39.0-53.0) % BUN (9-20) mg/dL Glucose (74-99) mg/dL POC Glucose (mg/dL) 264 H 134 H 178 H (75-99) mg/dL AST (17-59) U/L Total Protein (6.3-8.2) g/dL Albumin (3.5-5.0) g/dL 01/24/17 01/24/17 01/24/17 Range/Units 02:11 06:20 06:20 RBC 2.97 L (4.30-5.90) m/uL Hgb 9.0 L (13.0-17.5) gm/dL Hct 28.3 L (39.0-53.0) % BUN 44 H (9-20) mg/dL Glucose 162 H (74-99) mg/dL POC Glucose (mg/dL) 133 H (75-99) mg/dL AST 70 H (17-59) U/L Total Protein 5.9 L (6.3-8.2) g/dL Albumin 3.2 L (3.5-5.0) g/dL 01/24/17 Range/Units 06:29 RBC (4.30-5.90) m/uL Hgb (13.0-17.5) gm/dL Hct (39.0-53.0) % BUN (9-20) mg/dL Glucose (74-99) mg/dL POC Glucose (mg/dL) 163 H (75-99) mg/dL AST (17-59) U/L Total Protein (6.3-8.2) g/dL Albumin (3.5-5.0) g/dL Assessment and Plan (1) Coronary artery disease Status: Acute (2) Hypertension Status: Acute (3) Hyperlipidemia Status: Acute (4) Diabetes mellitus Status: Acute (5) Obesity, morbid, BMI 40.0-49.9 Status: Acute Plan: 1. Continue aspirin, Plavix, beta rachel, statin. 2. Encourage incentive spirometry use. 3. BUN still elevated at 44. Will hold Diovan on for now, encourage oral intake of fluids. 4. Encourage increased activity, ambulate in hallway 4 times daily. Physical therapy to follow. 5. Awaiting occupational therapy evaluation. 6. GI/DVT prophylaxis. 7. Will monitor heart rate and rhythm closely and adjust medications as necessary. 8. Anticipate discharge today or tomorrow. Time with Patient: Greater than 30
--- NOTE | 2017-01-24 14:32 | P.PN ---
Subjective Principal diagnosis: Status post CABG Morbidly obese 61-year-old male patient, with established coronary artery disease who was found to have a positive stress test and subsequent cardiac catheterization showing distal left main disease and proximal LAD restenosis and a patent RCA stent. The patient is diabetic hypertensive and has hyperlipidemia. The patient was referred for cardiac bypass surgery. The patient was evaluated and underwent a three-vessel bypass surgery including WITT to LAD. The patient comes into the intensive care unit on I'm seeing this patient postop day #0. I evaluated and so the patient immediately after he arrived to the intensive care unit. I have an assist-control mode of ventilation at the rate of 12, FiO2 of 100%, PEEP of 5 and tidal volume of 600. Chest x-ray showing small lung volumes and ET tube is in a good location, [place]-Div[place] catheter in place, the patient has 2 mediastinal, right pleural and left pleural chest tubes and all of them are in place. Hemodynamically the patient has a cardiac index of 3.1. PA pressures of 45/27. He is producing adequate amount of urine output. He is on no pressors at this point. He is sedated with Diprivan is calm and comfortable. Blood gases are still pending for now. Surgical wound site over the chest and lower extremities are dry clean and intact. I was told that the patient was a difficult intubation and he was intubated via glidoscope. . The patient is on an insulin drip at 3 units an hour. The patient is on a nitroglycerin drip at 5 g. The patient is on Diprivan drip for sedation. On 01/20/2079 seeing the patient follow-up. The patient is doing extremely well. The patient was weaned off the mechanical ventilator and the patient was extubated without any major difficulties. The patient is currently on high flow oxygen 8 L per minute nasal cannula. Today's chest x-ray shows small lung volumes and atelectatic changes bilaterally. Mediastinal chest tubes and thoracic chest tubes are all in place. There is sternal chest tubes are quite active at this point terms of drainage. [place]-Divina catheter was removed after confirming a recent cardiac index this morning. The patient's producing adequate amount of urine output. Cleviprex is running at 1 mg. The patient has no chest pain. No change in mental status. No other significant events overnight. Insulin drip still being utilized for tighter blood sugar control. On 01/21/2017 and 01/22/2017, the patient improved considerably to the point where the patient got moved out of the intensive care unit. On 01/23/2070 the patient is being seen in follow-up. Chest is overall removed. The patient is on room air oxygen. Wounds are being dressed appropriately and lower extremities. No fever. No chills. No night sweats. Hemodynamically stable. No hypoglycemia. No chest pain. No other significant events over the past 24 hours. Discharge planning is in progress. Patient was reevaluated on 01/24/2017, he is doing quite well, I believe discharge planning is in progress. Patient will likely be discharged home either today or tomorrow. Patient is postoperative day #5, status post triple vessel coronary artery bypass grafting. Objective - Vital Signs Vital signs: Vital Signs Temp 97.5 F L 01/24/17 11:18 Pulse 71 01/24/17 11:18 Resp 20 01/24/17 11:18 BP 111/55 01/24/17 11:18 Pulse Ox 94 L 01/24/17 11:18 Intake & Output 01/23/17 01/24/17 01/24/17 18:59 06:59 18:59 Intake Total 515 448 4947 Output Total 550 250 Balance -574 613 5884 Weight 151.3 kg Intake: Oral 072 494 9807 Output: Urine 550 250 Other: Voiding Method Urinal Urinal # Voids 0 1 # Bowel Movements 0 ABP, PAP, CO, CI - Last Documented Arterial Blood Pressure 143/54 Pulmonary Artery Pressure 48/22 Cardiac Output 9.5 Cardiac Index 3.6 - Exam Physical Exam: Revealed a 61-year-old in no distress HEENT:[Neck is supple.] [No neck masses.] [No thyromegaly.] [No JVD.] Chest: [Clear throughout, no crackles, no rhonchi, no wheezes.] Cardiac Exam: [Normal S1 and S2, no S3 gallop, no murmur.] Abdomen: [Soft, nontender, no megaly, no rebound, no guarding, normal bowel sounds.] Extremities: [No clubbing, no edema, no cyanosis.] Neurological Exam: [No focal neurologic deficit.] - Labs CBC & Chem 7: 01/24/17 06:20 01/24/17 06:20 Labs: Abnormal Lab Results - Last 24 Hours (Table) 01/19/17 01/19/17 01/19/17 Range/Units 09:31 09:57 12:14 RBC (4.30-5.90) m/uL Hgb (13.0-17.5) gm/dL Hct (39.0-53.0) % ABG pCO2 47 H (35-45) mmHg ABG pO2 247 H 264 H 371 H (83-108) mmHg ABG HCO3 26 H (21-25) mmol/L ABG Total CO2 27 H 27 H 26 H (19-24) mmol/L ABG O2 Saturation 99.8 H 99.9 H 100.0 H (94-97) % ABG Hematocrit (34.0-46.0) % ABG Potassium 5.0 H 5.5 H 4.9 H (3.4-4.5) mmol/L BUN (9-20) mg/dL Glucose (74-99) mg/dL POC Glucose (mg/dL) (75-99) mg/dL AST (17-59) U/L Total Protein (6.3-8.2) g/dL Albumin (3.5-5.0) g/dL Arterial Blood Potassium 5.0 H 5.5 H 4.9 H (3.4-4.5) mmol/L 01/19/17 01/19/17 01/19/17 Range/Units 12:30 13:43 14:06 RBC (4.30-5.90) m/uL Hgb (13.0-17.5) gm/dL Hct (39.0-53.0) % ABG pCO2 (35-45) mmHg ABG pO2 368 H 297 H 181 H (83-108) mmHg ABG HCO3 27 H (21-25) mmol/L ABG Total CO2 26 H 28 H 26 H (19-24) mmol/L ABG O2 Saturation 100.0 H 99.9 H 99.6 H (94-97) % ABG Hematocrit 28 L 31 L (34.0-46.0) % ABG Potassium 5.0 H 4.7 H 5.4 H (3.4-4.5) mmol/L BUN (9-20) mg/dL Glucose (74-99) mg/dL POC Glucose (mg/dL) (75-99) mg/dL AST (17-59) U/L Total Protein (6.3-8.2) g/dL Albumin (3.5-5.0) g/dL Arterial Blood Potassium 5.0 H 4.7 H 5.4 H (3.4-4.5) mmol/L 01/19/17 01/19/17 01/23/17 Range/Units 14:51 15:29 16:44 RBC (4.30-5.90) m/uL Hgb (13.0-17.5) gm/dL Hct (39.0-53.0) % ABG pCO2 (35-45) mmHg ABG pO2 353 H 300 H (83-108) mmHg ABG HCO3 (21-25) mmol/L ABG Total CO2 25 H 26 H (19-24) mmol/L ABG O2 Saturation 99.9 H 99.9 H (94-97) % ABG Hematocrit 24 L 33 L (34.0-46.0) % ABG Potassium 5.0 H 5.1 H (3.4-4.5) mmol/L BUN (9-20) mg/dL Glucose (74-99) mg/dL POC Glucose (mg/dL) 134 H (75-99) mg/dL AST (17-59) U/L Total Protein (6.3-8.2) g/dL Albumin (3.5-5.0) g/dL Arterial Blood Potassium 5.0 H 5.1 H (3.4-4.5) mmol/L 01/23/17 01/24/17 01/24/17 Range/Units 21:14 02:11 06:20 RBC 2.97 L (4.30-5.90) m/uL Hgb 9.0 L (13.0-17.5) gm/dL Hct 28.3 L (39.0-53.0) % ABG pCO2 (35-45) mmHg ABG pO2 (83-108) mmHg ABG HCO3 (21-25) mmol/L ABG Total CO2 (19-24) mmol/L ABG O2 Saturation (94-97) % ABG Hematocrit (34.0-46.0) % ABG Potassium (3.4-4.5) mmol/L BUN (9-20) mg/dL Glucose (74-99) mg/dL POC Glucose (mg/dL) 178 H 133 H (75-99) mg/dL AST (17-59) U/L Total Protein (6.3-8.2) g/dL Albumin (3.5-5.0) g/dL Arterial Blood Potassium (3.4-4.5) mmol/L 01/24/17 01/24/17 01/24/17 Range/Units 06:20 06:29 11:41 RBC (4.30-5.90) m/uL Hgb (13.0-17.5) gm/dL Hct (39.0-53.0) % ABG pCO2 (35-45) mmHg ABG pO2 (83-108) mmHg ABG HCO3 (21-25) mmol/L ABG Total CO2 (19-24) mmol/L ABG O2 Saturation (94-97) % ABG Hematocrit (34.0-46.0) % ABG Potassium (3.4-4.5) mmol/L BUN 44 H (9-20) mg/dL Glucose 162 H (74-99) mg/dL POC Glucose (mg/dL) 163 H 256 H (75-99) mg/dL AST 70 H (17-59) U/L Total Protein 5.9 L (6.3-8.2) g/dL Albumin 3.2 L (3.5-5.0) g/dL Arterial Blood Potassium (3.4-4.5) mmol/L Assessment and Plan Plan: 1 multivessel coronary artery disease, status post two-vessel bypass and the patient is postop day #5 2 postoperative bi basilar atelectasis is improving 3 obesity 4 diabetes mellitus currently on insulin drip for blood sugar control 5 hypertension 6 hyperlipidemia 7 degenerative arthritis with chronic pain syndrome involving the shoulder and the back and the knees bilaterally. 8 postoperative anemia, Recommendation: Agree with discharge planning, follow-up with Dr. Zarate on outpatient basis. Time with Patient: Less than 30
--- NOTE | 2017-01-24 15:48 | P.DS ---
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 Do you want consulting provider notified?: Yes Primary care physician: Guy Martinez - Discharge Diagnosis(es) (1) Coronary artery disease Current Visit: Yes Status: Acute (2) Hypertension Current Visit: Yes Status: Acute (3) Hyperlipidemia Current Visit: Yes Status: Acute (4) Diabetes mellitus Current Visit: Yes Status: Acute (5) Obesity, morbid, BMI 40.0-49.9 Current Visit: Yes Status: Acute Hospital Course: FINAL DIAGNOSIS: 1.[Double vessel coronary artery disease with left main disease, status post stenting to the left anterior descending artery and the right coronary artery] 2.[Preserved left ventricular function] 3.[Hypertension] 4.[Hyperlipidemia] 5.[Insulin-dependent diabetes] 6.[Obesity] PRINCIPAL PROCEDURE: [] 1.[Beating heart pump-assisted triple vessel coronary artery bypass grafting using the left internal mammary artery to the left anterior descending artery, reverse saphenous vein graft connected to the aorta using the PAS-Port device connected distally to the second diagonal artery, reverse saphenous vein graft connected to the aorta using the PAS-Port device and connected distally to the ramus intermedius artery] 2.[Endoscopic harvesting of the left greater saphenous vein] 3.[Intraoperative transesophageal echocardiogram and epi-aortic scanning] 4.[Sternal closure with cables and plating system using the Tritium system] 5.[Intraoperative graft flow measurement using the Medistim machine] HISTORY OF PRESENT ILLNESS: [This 61-year-old gentleman with a history of stenting to his mid RCA and proximal LAD approximately 8 months ago continued to have persistent symptoms and cardiac catheterization as well as IVUS was offered and performed showing progression of the disease in the distal mid left main and the proximal LAD. The stent to the right coronary artery was widely patent. Consult was made to cardiothoracic surgery for possible surgical revascularization. Preoperative testing was completed. An extensive discussion was had with the patient and his , all risks and benefits were explained, and they elected to proceed with surgery. The patient was discharged home from the extended stay unit to allow metabolism of Effient to return as an outpatient for surgery.] HOSPITAL COURSE:[ This gentleman was brought in from outpatient setting on 01/19, and brought to the preoperative area. He was prepared for surgery appropriately and taken to the operating room. Dr. Carver performed an elective beating heart pump-assisted triple vessel coronary artery bypass grafting using the left internal mammary artery to the left anterior descending artery, reverse saphenous vein graft connected to the aorta using the PAS-Port device connected distally to the second diagonal artery, reverse saphenous vein graft connected to the aorta using the PAS-Port device and connected distally to the ramus intermedius artery, endoscopic harvesting of the left greater saphenous vein, intraoperative transesophageal echocardiogram and epi-aortic scanning, sternal closure with cables and plating system using the Tritium system, and intraoperative graft flow measurement using the Medistim machine. upon completion of the surgery, patient was subsequently transferred to the cardiovascular intensive care unit where he was recovered, monitored hemodynamically, and where he progressed to cardiac rehabilitation phase 1. He was extubated, all lines, tubes, and drips were discontinued when appropriate, and he was subsequently transferred to [address] [place] [address] for further monitoring and rehabilitation. His oxygen was titrated down, he continued to work with physical and occupational therapy, and was ready to be discharged home on postoperative day #5 with [facility] to follow.] COMPLICATIONS: [The patient's parents no postoperative complications.] CONSULTATIONS: 1.[Dr. Lopez for cardiology] 2.[Dr. Zarate for pulmonology] 3.[Dr. Martinez for medical management] DISCHARGE INSTRUCTIONS: 1. No driving for 4 weeks, or until physician gives their ok. 2. The patient should sleep in their own bed, no medical bed needed. 3. Stairs are not an issue. If the bedroom is upstairs, it is advised that the patient go up at night and down in the morning for the first week. Go slowly, using handrail and take 1 step at a time. 4. MADELYN hose are to be worn for 30 days or until physician discontinues. 5. Heart hugger is to be worn 100% of the time until physician discontinues.( except when showering) 6. No lifting, pushing, or pulling more than 10 pounds for 12 weeks. The physician will advise of any restriction changes. 7. The patient is expected to continue the prescribed walking program. 8. Continue pain control per as needed orders. 9. Continue with incentive spirometry and splinting/heart hugger until otherwise directed by the physician. 10. Must shower daily using liquid antibacterial soap and a separate white washcloth for each individual incision. 11. Please remove chest dressing on [01/26/17] with routine sternal incision care thereafter. HOME HEALTH SERVICES TO PROVIDE: RN SKILLED HOME CARE SERVICES FOR POST-OP SURGICAL PATIENTS WITH THE FOLLOWING: Coronary Artery Bypass Surgery (CABG), Mitral Valve Replacement/ Repair ( MVR), Aortic Valve Replacement/Repair (AVR) RN TO CONTINUE EDUCATION FROM ``ROAD TO A HEALTH HEART PATIENT EDUCATION MANUAL (GIVEN TO PATIENT IN THE HOSPITAL) MEDICATION RECONCILIATION WITH EDUCATION NEEDED ON FIRST HOME VISIT EMPHASIZE IMPORTANCE OF WEARING HEART HUGGER ENCOURAGE USE OF INCENTIVE SPIROMETER 10 X EVERY HOUR WHILE AWAKE ENCOURAGE UTILIZATION OF LOWER EXTREMITY COMPRESSION STOCKINGS/MADELYN HOSE and ELEVATE LEGS ABOVE LEVEL OF HEART WHILE AT REST. ENCOURAGE AMBULATION 3-5x/day INCREASING TOLERATES, WHILE AVOID EXTREMES IN TEMPERATURE FREQUENCY: RN TO OPEN THE PATIENT WITHIN 24 HOURS OF DISCHARGE FROM THE HOSPITAL WITH TELEHEALTH INSTALLED AT [facility] [place], RN TO VISIT 2-3 X A WEEK FOR 4 WEEKS ESTABLISHED BY PATIENT NEEDS. REMOVAL OF SUTURES: NURSING SERVICES TO REMOVE SUTURES TWO WEEKS POST SURGICAL DATE [ 02/02/17 ]. If any questions regarding suture removal please call the office at [phone]. LABORATORY: CBC, CMP TO BE DRAWN ON THE THIRD DAY HOME, 01/27/2017 (RAN STAT ) FAX RESULTS TO [phone]. TELEHEALTH PARAMETERS: WEIGHT: NOTIFY MD OF WEIGHT GAIN OF 2 LBS IN 24 HOURS OR 5 LBS IN ONE WEEK HR: NOTIFY MD OF HR <55 BPM OR HR>100 BPM BP: NOTIFY MD IF BP <90/55 OR BP>140/100 O2 SAT: NOTIFY MD IF PO2<93% ON ROOM AIR SEND TELEHEALTH REPORT TO PROFESSOR OF GRAPHIC DESIGN AND CARDIOVASCULAR SURGEON THE FIRST WEEK OF CARE AND THEN BI-WEEKLY. PLEASE ADDITIONALLY COMMUNICATE ANY ABNORMALS AND NEW FINDINGS TO THE SURGEONS OFFICE. Plan - Discharge Summary New Discharge Prescriptions: Atorvastatin [Lipitor] 40 mg PO DAILY #30 tab Clopidogrel [Plavix] 75 mg PO DAILY #30 tab HYDROcodone/APAP 5-325MG [Holloway 5-325] 1 - 2 tab PO Q6HR PRN 7 Days PRN Reason: Moderate Pain Metoprolol Tartrate [Lopressor] 50 mg PO BID #60 tab Valsartan [Diovan] 80 mg PO DAILY #30 tab Discharge Medication List Aspirin 325 mg PO DAILY 04/09/16 [History] Insulin Aspart Protam & Aspart [NovoLOG MIX 70-30 Flexpen] 90 unit SQ BID [History] sitaGLIPtin [Januvia] 100 mg PO DAILY 04/09/16 [History] Calcium Carbonate [Calcium] 600 mg PO DAILY 01/12/17 [History] Fish Oil/Dha/Epa [Fish Oil 1,200 mg Fish Oil] 1 cap PO DAILY 01/12/17 [History] Multivitamins, Thera [Multivitamin (formulary)] 1 tab PO DAILY 01/12/17 [History ] Atorvastatin [Lipitor] 40 mg PO DAILY #30 tab 01/24/17 [Rx] Clopidogrel [Plavix] 75 mg PO DAILY #30 tab 01/24/17 [Rx] HYDROcodone/APAP 5-325MG [Holloway 5-325] 1 - 2 tab PO Q6HR PRN 7 Days 01/24/17 [Rx ] Metoprolol Tartrate [Lopressor] 50 mg PO BID #60 tab 01/24/17 [Rx] Valsartan [Diovan] 80 mg PO DAILY #30 tab 01/24/17 [Rx] Follow up Appointment(s)/Referral(s): Darshan Lopez MD [STAFF PHYSICIAN] - 02/07/17 4:00 pm Neftali Carver MD [STAFF PHYSICIAN] - 02/25/17 10:00 am [facility], [NON-STAFF] - Guy Martinez MD [Primary Care Provider] - 02/01/17 1:30 pm Radha Zarate MD [STAFF PHYSICIAN] - 02/14/17 1:30 pm Ambulatory/Diagnostic Orders: Complete Blood Count w/diff [LAB.AMB] Time Frame: 3 Days, Facility: [facility], Location: [facility] Comprehensive Metabolic Panel [LAB.AMB] Time Frame: 3 Days, Facility: [facility], Location: [facility] Patient Instructions/Handouts: Coronary Artery Bypass Graft (DC) Activity/Diet/Wound Care/Special Instructions: DISCHARGE INSTRUCTIONS: 1. No driving for 4 weeks, or until physician gives their ok. 2. The patient should sleep in their own bed, no medical bed needed. 3. Stairs are not an issue. If the bedroom is upstairs, it is advised that the patient go up at night and down in the morning for the first week. Go slowly, using handrail and take 1 step at a time. 4. MADELYN hose are to be worn for 30 days or until physician discontinues. 5. Heart hugger is to be worn 100% of the time until physician discontinues.( except when showering) 6. No lifting, pushing, or pulling more than 10 pounds for 12 weeks. The physician will advise of any restriction changes. 7. The patient is expected to continue the prescribed walking program. 8. Continue pain control per as needed orders. 9. Continue with incentive spirometry and splinting/heart hugger until otherwise directed by the physician. 10. Must shower daily using liquid antibacterial soap and a separate white washcloth for each individual incision. 11. Please remove chest dressing on [01/26/17] with routine sternal incision care thereafter. HOME HEALTH SERVICES TO PROVIDE: RN SKILLED HOME CARE SERVICES FOR POST-OP SURGICAL PATIENTS WITH THE FOLLOWING: Coronary Artery Bypass Surgery (CABG), Mitral Valve Replacement/ Repair ( MVR), Aortic Valve Replacement/Repair (AVR) RN TO CONTINUE EDUCATION FROM ``ROAD TO A HEALTH HEART PATIENT EDUCATION MANUAL (GIVEN TO PATIENT IN THE HOSPITAL) MEDICATION RECONCILIATION WITH EDUCATION NEEDED ON FIRST HOME VISIT EMPHASIZE IMPORTANCE OF WEARING HEART HUGGER ENCOURAGE USE OF INCENTIVE SPIROMETER 10 X EVERY HOUR WHILE AWAKE ENCOURAGE UTILIZATION OF LOWER EXTREMITY COMPRESSION STOCKINGS/MADELYN HOSE and ELEVATE LEGS ABOVE LEVEL OF HEART WHILE AT REST. ENCOURAGE AMBULATION 3-5x/day INCREASING TOLERATES, WHILE AVOID EXTREMES IN TEMPERATURE FREQUENCY: RN TO OPEN THE PATIENT WITHIN 24 HOURS OF DISCHARGE FROM THE HOSPITAL WITH TELEHEALTH INSTALLED AT [facility] [place], RN TO VISIT 2-3 X A WEEK FOR 4 WEEKS ESTABLISHED BY PATIENT NEEDS. REMOVAL OF SUTURES: NURSING SERVICES TO REMOVE SUTURES TWO WEEKS POST SURGICAL DATE [ 3/29/17 ]. If any questions regarding suture removal please call the office at [phone]. LABORATORY: CBC, CMP TO BE DRAWN ON THE THIRD DAY HOME, 01/27/2017 (RAN STAT ) FAX RESULTS TO [phone]. TELEHEALTH PARAMETERS: WEIGHT: NOTIFY MD OF WEIGHT GAIN OF 2 LBS IN 24 HOURS OR 5 LBS IN ONE WEEK HR: NOTIFY MD OF HR <55 BPM OR HR>100 BPM BP: NOTIFY MD IF BP <90/55 OR BP>140/100 O2 SAT: NOTIFY MD IF PO2<93% ON ROOM AIR SEND TELEHEALTH REPORT TO PROFESSOR OF GRAPHIC DESIGN AND CARDIOVASCULAR SURGEON THE FIRST WEEK OF CARE AND THEN BI-WEEKLY. PLEASE ADDITIONALLY COMMUNICATE ANY ABNORMALS AND NEW FINDINGS TO THE SURGEONS OFFICE. Discharge Disposition: HOME WITH HOME HEALTH SERVICES
[2017-01-24 15:57] VITALS: BP 121/55; PULSE 70; RESP 18; TEMP 97.6
--- NOTE | 2017-01-24 22:53 | PN ---
61-year-old gentleman who is admitted to hospital with coronary artery disease, has had bypass surgery, doing well and is ready to go home. He is on aspirin, Lipitor, Plavix, insulin, Lopressor. On exam, comfortable at rest. Vital signs are stable. Chest exam reveals good air entry bilaterally. Heart exam reveals first and second heart sounds. No gallop. ABDOMEN: Soft. Exam of the extremities did not reveal any edema. Peripheral pulses are felt. Labs show a hemoglobin of 9. Potassium is 4.4. Creatinine 1.2. ASSESSMENT: Coronary artery disease, status post coronary artery bypass grafting. Patient is doing well. He will continue with his current medications.
[2017-01-25] MEDS ORDERED: VALSARTAN 80 MG TAB PO SCH (09:00)
--- NOTE | 2017-01-25 14:18 | P.PN ---
Progress Note - Text this is an addendum to my previous progress note. The patient did have acute postoperative anemia secondary to acute blood loss however his hemoglobin remained stable greater than 9.0 and he did not require any blood transfusions this admission.
== END 2017-01-24 16:40 | disposition home health service (06) | DRG 236 ==
LOC: 2ORMAIN 06:35 → 6ICU 11:01 → 6SEL 01-21 11:50
PROVIDERS: ADMIT Surgery; ATTEND Surgery
PROC: 5A1221Z Performance of Cardiac Output, Continuous (ICD-10-PCS; principal; 2017-01-19 09:00)
PROC: 021109W Bypass Coronary Artery, Two Arteries from Aorta with Autologous Venous Tissue, Open Approach (ICD-10-PCS; principal; 2017-01-19 09:00)
PROC: 06BQ4ZZ Excision of Left Saphenous Vein, Percutaneous Endoscopic Approach (ICD-10-PCS; principal; 2017-01-19 09:00)
PROC: 02100Z9 Bypass Coronary Artery, One Artery from Left Internal Mammary, Open Approach (ICD-10-PCS; principal; 2017-01-19 09:00)
PROC: B246ZZ4 Ultrasonography of Right and Left Heart, Transesophageal (ICD-10-PCS; principal; 2017-01-19 09:00)
DX: I25.10 Atherosclerotic heart disease of native coronary artery without angina pectoris (principal); Z68.42 Body mass index [BMI] 45.0-49.9, adult; T82.855A Stenosis of coronary artery stent, initial encounter; D62 Acute posthemorrhagic anemia; I10 Essential (primary) hypertension; E66.01 Morbid (severe) obesity due to excess calories; E11.9 Type 2 diabetes mellitus without complications; E78.5 Hyperlipidemia, unspecified; G89.4 Chronic pain syndrome; M19.90 Unspecified osteoarthritis, unspecified site; Y83.1 Surgical operation with implant of artificial internal device as the cause of abnormal reaction of the patient, or of later complication, without mention of misadventure at the time of the procedure; Z79.02 Long term (current) use of antithrombotics/antiplatelets; Z79.4 Long term (current) use of insulin; Z79.82 Long term (current) use of aspirin; Z79.84 Long term (current) use of oral hypoglycemic drugs; Z79.899 Other long term (current) drug therapy; Z87.891 Personal history of nicotine dependence; Z82.49 Family history of ischemic heart disease and other diseases of the circulatory system
CPT/HCPCS: 36600; 71010; 71020; 80053; 82330; 82805; 83036; 83735; 85025; 85027; 85520; 85610; 85730; 86850; 86891; 86900; 86901; 86920; 93005; 94002; 94640; 94760

== ENCOUNTER → 2022-03-23 | Outpatient (CLI) | payer BC, MEDICARE ==
--- NOTE | 2022-03-23 19:45 | XR ---
EXAMINATION TYPE: XR chest 2V DATE OF EXAM: 03/23/2022 COMPARISON: 01/23/2017 HISTORY: 66-year-old male shortness of breath, R06.09 TECHNIQUE: Frontal and lateral views FINDINGS: Median sternotomy wires are present. Heart upper limits of normal in size. Mild vascular prominence m ay be technical due to large body habitus. No consolidation or pleural effusion. Slightly low lung vo lumes. IMPRESSION: Median sternotomy wires. Hypoventilatory changes. Vascular prominence may be technical related to lar ge body habitus or could be due to mild pulmonary vascular congestion. Clinically correlate.
== END | disposition home or self-care (01) ==
LOC: RADXRMAIN 13:03
PROVIDERS: ATTEND Family Medicine
DX: R06.09 Other forms of dyspnea (principal)
CPT/HCPCS: 71046

== ENCOUNTER 2022-04-07 07:04 | Inpatient (IN) | payer BC, MEDICARE ==
[2022-04-07] MEDS ORDERED: ASPIRIN 81 MG PO STA (07:11)
--- NOTE | 2022-04-07 07:15 | ED ---
General Adult HPI - General Chief complaint: Shortness of Breath Stated complaint: EDWARD Time Seen by Provider: 04/07/22 07:10 Source: patient, EMS, RN notes reviewed Mode of arrival: EMS Limitations: no limitations - History of Present Illness Initial comments: Patient is a pleasant 66-year-old male presenting to the emergency department source of breath. Patient was in the laundry room and had a cecal episode. Patient plays of dyspnea since he woke this morning. No other complaints. No injury. No headache. No confusion. No chest pain. No weakness. No history of similar symptoms previously. - Related Data Home Medications Medication Instructions Recorded Confirmed Aspirin 325 mg PO DAILY 04/09/16 02/03/18 Insulin Aspart Protam & Aspart 100 unit SQ QAM 04/09/16 02/03/18 [NovoLOG MIX 70-30 Flexpen] sitaGLIPtin [Januvia] 100 mg PO DAILY 04/09/16 02/03/18 Calcium Carbonate [Calcium] 600 mg PO DAILY 01/12/17 02/03/18 Multivitamins, Thera [Multivitamin 1 tab PO DAILY 01/12/17 02/03/18 (formulary)] Atorvastatin [Lipitor] 80 mg PO DAILY 01/03/18 02/03/18 Furosemide [Lasix] 40 mg PO DAILY 01/03/18 02/03/18 Insuln Asp Prt/Insulin Aspart 95 units PO HS 01/03/18 02/03/18 [NovoLOG MIX 70-30 VIAL] Metoprolol Tartrate [Lopressor] 50 mg PO DAILY 01/03/18 02/03/18 Previous Rx's Medication Instructions Recorded Clopidogrel [Plavix] 75 mg PO DAILY #30 tab 01/24/17 Valsartan [Diovan] 80 mg PO DAILY #30 tab 01/24/17 Allergies Allergy/AdvReac Type Severity Reaction Status Date / Time pioglitazone [From Actos] Allergy Rash/Hives Verified 04/07/22 07:11 Review of Systems ROS Statement: Those systems with pertinent positive or pertinent negative responses have been documented in the HPI. ROS Other: All systems not noted in ROS Statement are negative. Constitutional: Denies: fever Eyes: Denies: eye pain ENT: Denies: ear pain Respiratory: Reports: dyspnea. Denies: cough Cardiovascular: Denies: chest pain Endocrine: Denies: fatigue Gastrointestinal: Denies: abdominal pain Genitourinary: Denies: urgency Musculoskeletal: Denies: back pain Skin: Denies: rash Neurological: Denies: headache Past Medical History Past Medical History: Coronary Artery Disease (CAD), COPD, Diabetes Mellitus, Hyperlipidemia, Hypertension, Myocardial Infarction (MO), Osteoarthritis (OA) Additional Past Medical History / Comment(s): Obesity, COPD with a baseline FEV1 of 43% of predicted based on a preop FEV1/spirometry my diabetes mellitus, hypertension, hyperlipidemia, coronary artery disease with previous coronary stenting of the RCA, osteoarthritis, bilateral chronic shoulder and knee pain, chronic back pain. open left leg since February 2017 Last Myocardial Infarction Date:: march 2016 History of Any Multi-Drug Resistant Organisms: MRSA Date of last positivie culture/infection: 2012 MDRO Source:: abdomen, rt.hip, Past Surgical History: Heart Catheterization, Heart Catheterization With Stent, Hernia Repair, Tonsillectomy Additional Past Surgical History / Comment(s): 01/07/12 cardiac stent x2, umbilical hernia repair, L knee arthroscopy, recent cardiac cath. Triple leg vessel left leg January 2017 Past Anesthesia/Blood Transfusion Reactions: Motion Sickness, Postoperative Nausea & Vomiting (PONV) Date of Last Stent Placement:: 01/07/12 Past Psychological History: No Psychological Hx Reported Past Alcohol Use History: Rare Past Drug Use History: None Reported - Past Family History Father Family Medical History: Cancer, COPD, CVA/TIA Additional Family Medical History / Comment(s): Prostate cancer, heart problems. Father of a CVA at age 78yrs. Mother Family Medical History: Diabetes Mellitus, Myocardial Infarction (MO) Additional Family Medical History / Comment(s): Mother of a massive MO at the age of 62 yrs. General Exam Limitations: no limitations General appearance: alert Head exam: Present: atraumatic Eye exam: Present: normal appearance, PERRL, EOMI ENT exam: Present: normal oropharynx Neck exam: Present: normal inspection. Absent: tenderness, meningismus Respiratory exam: Present: decreased breath sounds Cardiovascular Exam: Present: regular rate, normal rhythm GI/Abdominal exam: Present: soft. Absent: tenderness Extremities exam: Present: normal inspection. Absent: pedal edema, calf tenderness Neurological exam: Present: alert Psychiatric exam: Present: normal affect, normal mood Skin exam: Present: normal color Course Vital Signs 04/07/22 04/07/22 04/07/22 07:05 07:11 07:16 Pulse Rate 86 83 83 Respiratory 20 22 18 Rate Blood Pressure 83/54 75/41 60/22 O2 Sat by Pulse 98 98 98 Oximetry 04/07/22 07:20 Pulse Rate 77 Respiratory 22 Rate Blood Pressure 90/38 O2 Sat by Pulse 97 Oximetry - Reevaluation(s) Reevaluation #1: 04/07/22 07:12 Patient has EKG by EMS showing ST elevation leads V1 and V2 V3. STEMI alert was called at 7:10 AM. 04/07/22 07:14 EKG #2 shows sinus rhythm with a rate of 84. AR 185. QRS 133. QT to 59. QTC 400. Normal axis. Right bundle branch block. No acute ST change. The PVCs. 04/07/22 07:27 Case was discussed with Dr. Ham as well as Dr. Castanon. EKG Findings - EKG Comments: EKG Findings:: Sinus rhythm with rate of 99. AR 201. QRS 133. QT 394. QTC 450. Superior axis. Treatment PVCs. ST elevation in lead V1 Disposition Clinical Impression: STEMI (ST elevation myocardial infarction), Syncope, Dyspnea Disposition: ADMITTED IP TO THIS HOSP Condition: Serious Is patient prescribed a controlled substance at d/c from ED?: No Time of Disposition: :28
[2022-04-07] MEDS ORDERED: SODIUM CHLORIDE 0.9% 2,000 ML IV ONE (07:17)
[2022-04-07] MEDS ORDERED: VERAPAMIL 2.5 MG/ML 2 ML AMP ONE (07:23)
[2022-04-07] MEDS ORDERED: HEPARIN SODIUM 1,000 UN/ML (10ML VL) IV PRN ×3 (07:23→13:39)
[2022-04-07] MEDS ORDERED: HEPARIN SODIUM 1,000 UN/ML (10ML VL) IV ONE ×2 (07:23→10:11)
[2022-04-07] MEDS ORDERED: HEPARIN SOD,PORK IN 0.45% NACL 25,000 UNIT in 0.45% NACL 1 250ML.BAG IV SCH ×2 (07:30→10:15)
[2022-04-07] MEDS ORDERED: IV FLUID CONTINUATION 1,000 ML IV ONE ×2 (07:32)
[2022-04-07 07:35] LABS: Basophils % (A) 0 %; Eosinophils # (A) 0.2 k/uL (0-0.7); Eosinophils % (A) 2 %; HCT 46.4 % (39.0-53.0); HGB 15.3 gm/dL (13.0-17.5); Lymphocytes # (A) 5.2 k/uL (1.0-4.8); Lymphocytes % (A) 54 %; MCH 31.6 pg (25.0-35.0); MCV 95.7 fL (80.0-100.0); Mean Platelet Volume 7.7; Monocytes # (A) 0.3 k/uL (0-1.0); Monocytes % (A) 3 %; Neutrophils # (A) 3.6 k/uL (1.3-7.7); Neutrophils % (A) 37 %; Platelet Count 185 k/uL (150-450); RBC 4.85 m/uL (4.30-5.90); RDW 13.8 % (11.5-15.5); WBC 9.6 k/uL (3.8-10.6)
[2022-04-07 07:43] LABS: INR 0.9 (<1.2); Prothrombin Time 10.3 sec (9.0-12.0)
[2022-04-07 07:45] LABS: Albumin 3.9 g/dL (3.5-5.0); Calcium 8.7 mg/dL (8.4-10.2); Magnesium 2.4 mg/dL (1.6-2.3); Potassium 3.9 mmol/L (3.5-5.1); Total Bilirubin 0.6 mg/dL (0.2-1.3); Total Protein 6.9 g/dL (6.3-8.2)
[2022-04-07] MEDS ORDERED: LIDOCAINE 1% PF 10 MG/ML (5 ML AMP) SQ ONE (07:47)
--- NOTE | 2022-04-07 07:48 | XR ---
EXAMINATION TYPE: XR chest 1V portable DATE OF EXAM: 04/07/2022 COMPARISON: 03/23/2022 HISTORY: Chest pain TECHNIQUE: Single frontal view of the chest is obtained. FINDINGS: Postoperative change. Heart size stable. Limited inspiration with subsegmental changes at the lung bases. No pneumothorax or pleural effusion. No overt failure. IMPRESSION: Right basilar subsegmental consolidation atelectasis favored over pneumonia correlate cl inically.
[2022-04-07] MEDS ORDERED: MIDAZOLAM 2 MG/2 ML VIAL IVP ONE ×2 (07:52)
[2022-04-07 07:54] LABS: Partial Thromboplastin Time 21.6 sec (22.0-30.0)
[2022-04-07] MEDS ORDERED: LIDOCAINE 2% SYG (PF) 100 MG/5 ML IV ONE (07:58)
[2022-04-07] MEDS ORDERED: DEXTROSE 5% IN WATER 100 ML BAG IV ONE (08:00)
[2022-04-07] MEDS ORDERED: AMIODARONE 50 MG/ML 3 ML VIAL IV ONE ×2 (08:02→08:15)
[2022-04-07] MEDS ORDERED: AMIODARONE 360 MG in DEXTROSE 5% IN WATER 200 ML IV ONE ×2 (08:20)
[2022-04-07] MEDS ORDERED: IOPAMIDOL-370 125ML BTL INJ ONE (08:23)
[2022-04-07] MEDS: MAGNESIUM SULFATE-D5W PMX 1 GM in DEXTROSE/WATER 1 100ML.BAG IVPB SCH ×2 (08:45→09:11)
[2022-04-07] MEDS ORDERED: RX INFO: IV CONTRAST WAS GIVEN 1 EACH MISC MISCELLANE PRN ×2 (08:46)
--- NOTE | 2022-04-07 08:51 | P.CRDCN ---
History of Present Illness Consult date: 04/07/22 Chief complaint: Syncopal episode History of present illness: This is a 66-year-old gentleman with coronary artery disease and status post coronary artery murmurs grafting with the LAD and SVG to diagonal as well as SVG to ramus and also morbid obesity and hypertension and dyslipidemia was brought to the emergency department by ambulance after an episode of syncope at home witnessed by his . He was in his usual state of health until this signal timer his found the patient on the floor. She stated that he was out. She called ambulance and the patient was brought to the emergency department with an EKG showed possible or questionable ST segment deviation. The EKG in the emergency department here showed no assisted medication but frequent PVC. The patient underwent an emergent heart catheterization and that revealed occlu ded LAD was patent WITT to LAD and patent SVG to diagonal as well as beta SVG to ramus intermedius was mild disease involving the left circumflex and RCA. During the procedure the patient went into polymorphic VT and he underwent a shock. He was brought back to normal sinus mechanism and subsequently he wasn't started on amiodarone as well as lidocaine drip. After clemons I did review the blood work and that revealed elevated d-dimer but he is obese and PE could be the scenario and for that reason point to pursue with a CTA for further clarification. Also an echocardiogram will be performed. The patient will be admitted to the intensive care unit. Past Medical History Past Medical History: Coronary Artery Disease (CAD), COPD, Diabetes Mellitus, Hyperlipidemia, Hypertension, Myocardial Infarction (MN), Osteoarthritis (OA) Additional Past Medical History / Comment(s): Obesity, COPD with a baseline FEV1 of 43% of predicted based on a preop FEV1/spirometry my diabetes mellitus, hypertension, hyperlipidemia, coronary artery disease with previous coronary stenting of the RCA, osteoarthritis, bilateral chronic shoulder and knee pain, chronic back pain. open left leg since February 2017 Last Myocardial Infarction Date:: march 2016 History of Any Multi-Drug Resistant Organisms: MRSA Date of last positivie culture/infection: 2012 MDRO Source:: abdomen, rt.hip, Past Surgical History: Heart Catheterization, Heart Catheterization With Stent, Hernia Repair, Tonsillectomy Additional Past Surgical History / Comment(s): 01/07/12 cardiac stent x2, umbilical hernia repair, L knee arthroscopy, recent cardiac cath. Triple leg vessel left leg January 2017 Past Anesthesia/Blood Transfusion Reactions: Motion Sickness, Postoperative Nausea & Vomiting (PONV) Date of Last Stent Placement:: 01/07/12 Past Psychological History: No Psychological Hx Reported Past Alcohol Use History: Rare Past Drug Use History: None Reported - Past Family History Father Family Medical History: Cancer, COPD, CVA/TIA Additional Family Medical History / Comment(s): Prostate cancer, heart problems. Father of a CVA at age 78yrs. Mother Family Medical History: Diabetes Mellitus, Myocardial Infarction (MN) Additional Family Medical History / Comment(s): Mother of a massive MN at the age of 62 yrs. Medications and Allergies Home Medications Medication Instructions Recorded Confirmed Type Insulin Aspart Protam & Aspart 100 unit SQ BID 04/09/16 04/07/22 History [NovoLOG MIX 70-30 Flexpen] sitaGLIPtin [Januvia] 100 mg PO DAILY 04/09/16 04/07/22 History Atorvastatin [Lipitor] 80 mg PO DAILY 01/03/18 04/07/22 History Furosemide [Lasix] 40 mg PO DAILY 01/03/18 04/07/22 History Empagliflozin [Jardiance] 10 mg PO DAILY 04/07/22 04/07/22 History Ezetimibe [Zetia] 10 mg PO DAILY 04/07/22 04/07/22 History Irbesartan [Avapro] 150 mg PO DAILY 04/07/22 04/07/22 History Pregabalin [Lyrica] 75 mg PO DAILY 04/07/22 04/07/22 History Semaglutide [Ozempic] 1 mg SQ Q7D 04/07/22 04/07/22 History Allergies Allergy/AdvReac Type Severity Reaction Status Date / Time pioglitazone [From Actos] Allergy Rash/Hives Verified 04/07/22 08:40 Physical Exam Vitals: Vital Signs Pulse Resp BP Pulse Ox 04/07/22 07:25 72 18 101/44 97 04/07/22 07:20 77 22 90/38 97 04/07/22 07:16 83 18 60/22 98 04/07/22 07:11 83 22 75/41 98 04/07/22 07:05 86 20 83/54 98 Intake and Output 04/06/22 04/07/22 04/07/22 22:59 06:59 14:59 Intake Total 470 Balance 470 Intake: IV 470 Other: Weight 147.418 kg - Constitutional General appearance: no acute distress - Respiratory Respiratory: bilateral: diminished - Cardiovascular Rhythm: regular Results 04/07/22 07:15 04/07/22 07:15 Cardiac Enzymes 04/07/22 04/07/22 Range/Units 07:15 07:15 AST 32 (17-59) U/L Troponin I 0.019 (0.000-0.034) ng/mL Coagulation 04/07/22 Range/Units 07:15 PT 10.3 (9.0-12.0) sec APTT 21.6 L (22.0-30.0) sec CBC 04/07/22 Range/Units 07:15 WBC 9.6 (3.8-10.6) k/uL RBC 4.85 (4.30-5.90) m/uL Hgb 15.3 (13.0-17.5) gm/dL Hct 46.4 (39.0-53.0) % Plt Count 185 (150-450) k/uL Comprehensive Metabolic Panel 04/07/22 Range/Units 07:15 Sodium 139 (137-145) mmol/L Potassium 3.9 (3.5-5.1) mmol/L Chloride 100 (98-107) mmol/L Carbon Dioxide 28 (22-30) mmol/L BUN 57 H (9-20) mg/dL Creatinine 1.73 H (0.66-1.25) mg/dL Glucose 187 H (74-99) mg/dL Calcium 8.7 (8.4-10.2) mg/dL AST 32 (17-59) U/L ALT 28 (4-49) U/L Alkaline Phosphatase 119 (38-126) U/L Total Protein 6.9 (6.3-8.2) g/dL Albumin 3.9 (3.5-5.0) g/dL Current Medications Generic Name Dose Route Start Last Admin Trade Name Freq PRN Reason Stop Dose Admin Heparin Sodium (Porcine) 0 unit 04/07/22 07:23 Heparin Sodium 1,000 Un/Ml (10ml Vl) IV PER PROTOCOL PRN Low PTT Protocol Sodium Chloride 2,000 mls @ 999 mls/hr 04/07/22 07:17 04/07/22 07:18 Saline 0.9% IV 04/07/22 09:17 999 mls/hr .Q2H1M ONE Administration Heparin Sodium/Sodium Chloride 250 mls @ 10 mls/hr 04/07/22 07:30 25,000 unit/ Sodium Chloride IV .Q24H PILAR Protocol 6.7834 UNITS/KG/HR Magnesium Sulfate/Dextrose 1 100 mls @ 100 mls/hr 04/07/22 08:00 04/07/22 08:45 gm/ IV Solution IVPB 04/07/22 09:59 10 mls Q1H PILAR Administration Amiodarone HCl 360 mg/ 200 mls @ 33.333 mls/hr 04/07/22 08:20 04/07/22 08:45 Dextrose/Water IV 04/07/22 14:19 10 mls .Q6H ONE Administration Protocol 1 MG/MIN Sodium Chloride 1,000 mls @ 75 mls/hr 04/07/22 09:00 Saline 0.9% IV 04/07/22 14:01 .[id number] [facility] Miscellaneous Information 1 each 04/07/22 08:46 Rx Info: Iv Contrast Was Given 1 Each Misc MISCELLANE 04/09/22 08:46 DAILY PRN Per Protocol Miscellaneous Information 1 each 04/07/22 08:46 Rx Info: Iv Contrast Was Given 1 Each Misc MISCELLANE 04/09/22 08:46 DAILY PRN Per Protocol Intake and Output 04/06/22 04/07/22 04/07/22 22:59 06:59 14:59 Intake Total 470 Balance 470 Intake: IV 470 Other: Weight 147.418 kg Patient Weight 04/08/22 06:59 Weight 147.418 kg 04/07/22 07:15 04/07/22 07:15 Assessment and Plan Assessment: Assessment #1 syncopal episode, rule out cardiac etiology, rule out cardiac arrhythmia #2 status post cardiac arrest with V. tach. The patient received CHOP #3 coronary artery disease appeared to be stable #4 abnormal d-dimer #5 multiple comorbid conditions Plan #1 the patient underwent heart catheterization and revealed stable CAD #2 rule out pulmonary embolism by obtaining a CTA #3 continue amiodarone for now #4 obtain an echocardiogram was Doppler #5 further recommendation to 4
--- NOTE | 2022-04-07 08:56 | P.PCN ---
Date of Procedure: 04/07/22 Operative Findings: CARDIAC CATHETERIZATION PERFORMING PHYSICIAN: Darshan Lopez MD, RPVI PROCEDURE PERFORMED: 1. Selective right and left coronary angiogram 2. WITT to LAD angiogram 3. SVG to diagonal angiogram 4. SVG to ramus intermedius angiogram 5. Selective right common femoral artery and 6. Left heart catheterization INDICATION: Syncopal episode and EKG concerning for acute coronary syndrome COMPLICATION: None APPROACH: Right common femoral artery LEVEL OF SEDATION: Moderate with sedation length of 25 minutes PROCEDURE DESCRIPTION: After obtaining an informed consent, the patient was brought to cardiac pharmacy laboratory technician. Local anesthesia was performed using lidocaine subcutaneously. The right common femoral artery was cannulated using Seldinger technique, the guidewire passed easily, following that we advanced a 6 Irish sheath dilator assembly, the wire and dilator were removed and sheath was flushed. Selective right and left coronary angiogram using a 6-Irish JR4 and JL catheters. Following that we did left heart catheterization using 6-Irish pigtail catheter. The procedure was completed there was no complication. SELECTIVE CORONARY ANGIOGRAM: The right coronary artery: Is a large caliber vessel and a dominant vessel. It has mild disease only. Distally bifurcates into PDA and PLV branches what appeared to be angiographically normal Left main: Distally has intermediate disease appears to be in the range of 30-40% The left circumflex: Appears to have mild disease only. Gives rises into the first and second OM branches appear to have mild disease only The left anterior descending artery: The LAD is occluded in the proximal to midportion The WITT to LAD is patent The SVG to diagonal is patent The SVG to ramus is patent HEMODYNAMICS: The LVEDP was 16 mmHg was no significant gradient across aortic CONCLUSION: 1. Occluded LAD. The WITT to LAD is patent. The SVG to diagonal is patent 2. Patent SVG to ramus intermedius 3. Mild disease involving the LCx 4. Mild disease involving the RCA 5. Normal left-sided filling pressure POSTPROCEDURE MANAGEMENT: Medical treatment and follow-up with the patient
[2022-04-07] MEDS ORDERED: SODIUM CHLORIDE 0.9% 1,000 ML IV SCH (09:00)
[2022-04-07 09:03] LABS: Glucose,Whole Blood 319 mg/dL (75-99)
[2022-04-07 09:26] LABS: RBC Morphology Normal
[2022-04-07] MEDS ORDERED: SODIUM CHLORIDE 0.9% 500 ML 500 ML IV ONE (10:07)
[2022-04-07] MEDS: NOREPINEPHRINE 4 MG in SODIUM CHLORIDE 0.9% 250 ML IV SCH (10:43)
--- NOTE | 2022-04-07 11:01 | CA ---
Transthoracic Echo Report Name: Reynaldo Rico Age: 66 Gender: M : 1955 Exam Date: 04/07/2022 09:19 Exam Location: [facility] Ht (in): 71 Wt (lb): 325 Ordering Physician: Darshan Lopez MD ([id number]) Attending/Referring Phys: Noc Engineer Mellissa Ratliff RDCS Procedure CPT: Indications: ACS Cardiac Hx: Hx of bypass, cardiac cath with stenting. Technical Quality: Technically difficult study Contrast 1: Lumason Total Dose (mL): 1 Contrast 2: Total Dose (mL): MEASUREMENTS (Male / Female) Normal Values 2D ECHO LV Diastolic Diameter PLAX 4.1 cm 4.2 - 5.9 / 3.9 - 5.3 cm LV Systolic Diameter PLAX 1.7 cm IVS Diastolic Thickness 0.9 cm 0.6 - 1.0 / 0.6 - 0.9 cm LVPW Diastolic Thickness 1.1 cm 0.6 - 1.0 / 0.6 - 0.9 cm LV Relative Wall Thickness 0.5 RV Internal Dim ED PLAX 3.2 cm M-MODE Aortic Root Diameter MM 3.8 cm LA Systolic Diameter MM 3.9 cm LA Ao Ratio MM 1.0 MV E Point Septal Separation 1.2 cm AV Cusp Separation MM 2.4 cm DOPPLER AV Peak Velocity 133.6 cm/s AV Peak Gradient 7.1 mmHg MV Area PHT 3.4 cm??? MR Peak Velocity 112.0 cm/s MR Peak Gradient 5.0 mmHg Mitral E Point Velocity 84.1 cm/s Mitral A Point Velocity 69.4 cm/s Mitral E to A Ratio 1.2 MV Deceleration Time 221.6 ms MV E' Velocity 7.4 cm/s Mitral E to MV E' Ratio 11.3 TR Peak Velocity 112.0 cm/s TR Peak Gradient 5.0 mmHg Right Ventricular Systolic Press 10.0 mmHg FINDINGS Left Ventricle Normal Left ventricular size, wall thickness, systolic function with no obvious regional wall motion abnormalities. Normal Left ventricular diastolic filling pattern. Left ventricular ejection fraction is estimated at 55-60 %. Right Ventricle Normal right ventricular size. Right Atrium Right atrium not well visualized. Left Atrium Left atrium not well visualized. Mitral Valve Mitral valve not well visualized. Aortic Valve Aortic valve not well visualized. Tricuspid Valve Tricuspid valve not well visualized. Trace tricuspid regurgitation. Pulmonic Valve Pulmonic valve not well visualized. Pericardium No pericardial effusion. Aorta Aortic root and proximal ascending aorta not well visualized. CONCLUSIONS Technically difficult study Normal left ventricular ejection fraction 55-60% Mild mitral regurgitation Previewed by: Dr. Kalin Grider DO (Electronically Signed) Final Date: 07 April 2022 11:00
[2022-04-07 12:09] LABS: Glucose,Whole Blood 220 mg/dL (75-99)
--- NOTE | 2022-04-07 12:14 | CT ---
CT CHEST FOR PULMONARY EMBOLISM. EXAMINATION TYPE: CT chest angio for PE DATE OF EXAM: 04/07/2022 INDICATION: Stemi, PE CT DLP: 1161.4 mGycm, Automated exposure control for dose reduction was used. CONTRAST: Patient injected with 80 mL of Isovue 370. COMPARISON: None TECHNIQUE: CT of the chest is performed on a spiral scan at 2 mm thick sections. Study is performed with intravenous contrast timed for evaluation for pulmonary embolism. This will limit additional po rtions of the evaluation. 3-D MIP images reconstructed by the technologist are reviewed on the compu ter in the coronal and sagittal planes. FINDINGS: No persistent filling defects are evident to suggest an acute pulmonary embolism. No mediastinal or hilar adenopathy enlarged by CT criteria is evident. The ascending aorta diameter at the level of the main pulmonary artery is 3.3 cm. The main pulmonary artery diameter at the bifur cation is 3.3 cm. Coronary artery calcification is present. No suspicious focal consolidation is evident. Some subpleural fat appears to be present. Limited CT section through the upper abdomen are unremarkable. IMPRESSIONS: 1. No acute pulmonary embolism.
--- NOTE | 2022-04-07 12:14 | PN ---
PROGRESS NOTE Mr. Rico presented to the hospital this morning with what seems to be an episode of syncope and had a cardiac cath because of questionable acute ischemic syndrome. Catheterization revealed no significant progression of disease, but the patient developed ventricular tachycardia requiring to be shocked. He is in sinus rhythm with isolated PVCs. Electrolytes are good. He is on a magnesium drip. I discussed with the patient and his that we will perform CT angiogram. The patient received only 60 mL of dye or so during the catheterization. Therefore we will proceed with CT angiogram. We will also give him a fluid bolus and hydrate him and use norepinephrine to keep his pressure in the 95 range. Pressure is about 90 to 85 systolic. He is in sinus rhythm. We will rule out pulmonary embolism. Continue intravenous heparin and also assess echocardiogram. Based on findings, we will make further recommendations. Blood pressure is 90/60, pulse rate is about 68 with PVCs. S1, S2 heard normally but distantly. Lungs reveal diminished air entry. Abdomen and lower extremity exam unchanged. Cardiac cath was performed by Dr. Lopez and we will obtain a CT angiogram today, continue hydration and support the blood pressure with small dose of norepinephrine. Prognosis remains guarded. Will continue amiodarone drip IV. MMODL / IJN: [id number] /
--- NOTE | 2022-04-07 13:06 | P.HPIM ---
History of Present Illness This is a pleasant 66 years old male with past medical history of Coronary Artery Disease , COPD, Diabetes Mellitus, Hyperlipidemia, Hypertension, Osteoarthritis (OA), COPD with a baseline FEV1 of 43% of predicted , bilateral chronic shoulder and knee pain, chronic back pain. No presents because of falling and syncope. Information were obtained with the help of the at bedside. Patients and stated that this morning he was going to the restroom when he fell and passed out, it was lying on the left side when his found him, shortly thereafter he had 2 episodes of stiffness and shakiness all over with iron back and he was not responding, also associated with some stool incontinence but no tongue biting or urinary incontinence. He remained confused for 10-15 minutes after last shakiness like activity when EMS start to get him up, he start remember things around him. When admitted to the hospital he had the STEMI code patient went to emergent cardiac cath but no stent placed, please refer to the cardiac cath report for more details. Currently he was moved to the ICU, it looks like patient developed also short episodes of V. tach/VF and was started on amiodarone drip. Also he needed short dose of Levophed, however his blood pressure is holding up without any pressors for now. Is lying in bed not in distress, he is fully awake and oriented but looks tired. Let's with at bedtime. He denies any chest pain or breathing difficulty. No headache or weakness or numbness or blurred vision. No abdominal pain or vomiting. No diarrhea. No dysuria or urgency. He denies smoking, alcohol or illicit tracts. Also he is a diabetic and his been using 70:30 insulin and Januvia and other medications that he was noncompliant of. He was taken his numbers were trending 150-300 as per patient. At 2 or fewer episodes of count 80s 2 weeks ago. As per when she checked his sugar was 156 but that after she gave him some sugar still. Vascular he has sleep apnea but he does not use his CPAP machine at home. Patient vitals are reviewed he is afebrile, blood pressure 97/41. CBC is unremarkable, INR 0.9, d-dimer elevated at 1.6. BMP is unremarkable. Creatinine 1.7 which is elevated Echocardiogram: Ejection fraction 55-60% in emergency room patient given aspirin and heparin drip. Echocardiogram: EF 55-60%. CT of the chest is negative for pulmonary embolism Review of Systems CONSTITUTIONAL: No fever, no malaise, no fatigue. HEENT: No recent visual problems or hearing problems. Denied any sore throat. CARDIOVASCULAR: No orthopnea, PND, no palpitations, no syncope. PULMONARY: No shortness of breath, no cough, no hemoptysis. GASTROINTESTINAL: No diarrhea, no nausea, no vomiting, no abdominal pain. Normoactive bowel sounds. NEUROLOGICAL: No headaches, no weakness, no numbness. HEMATOLOGICAL: Denies any bleeding or petechiae. GENITOURINARY: Denies any burning micturition, frequency, or urgency. MUSCULOSKELETAL/RHEUMATOLOGICAL: Denies any joint pain, swelling, or any muscle pain. ENDOCRINE: Denies any polyuria or polydipsia. Past Medical History Past Medical History: Coronary Artery Disease (CAD), COPD, Diabetes Mellitus, Hyperlipidemia, Hypertension, Myocardial Infarction (MN), Osteoarthritis (OA) Additional Past Medical History / Comment(s): Obesity, COPD with a baseline FEV1 of 43% of predicted based on a preop FEV1/spirometry my diabetes mellitus, hypertension, hyperlipidemia, coronary artery disease with previous coronary stenting of the RCA, osteoarthritis, bilateral chronic shoulder and knee pain, chronic back pain. open left leg since February 2017 Last Myocardial Infarction Date:: march 2016 History of Any Multi-Drug Resistant Organisms: MRSA Date of last positivie culture/infection: 2012 MDRO Source:: abdomen, rt.hip, Past Surgical History: Heart Catheterization, Heart Catheterization With Stent, Hernia Repair, Tonsillectomy Additional Past Surgical History / Comment(s): 01/07/12 cardiac stent x2, umbilical hernia repair, L knee arthroscopy, recent cardiac cath. Triple leg vessel left leg January 2017 Past Anesthesia/Blood Transfusion Reactions: Motion Sickness, Postoperative Nausea & Vomiting (PONV) Date of Last Stent Placement:: 01/07/12 Past Psychological History: No Psychological Hx Reported Past Alcohol Use History: Rare Past Drug Use History: None Reported - Past Family History Father Family Medical History: Cancer, COPD, CVA/TIA Additional Family Medical History / Comment(s): Prostate cancer, heart problems. Father of a CVA at age 78yrs. Mother Family Medical History: Diabetes Mellitus, Myocardial Infarction (MN) Additional Family Medical History / Comment(s): Mother of a massive MN at the age of 62 yrs. Medications and Allergies Home Medications Medication Instructions Recorded Confirmed Type Insulin Aspart Protam & Aspart 100 unit SQ BID 04/09/16 04/07/22 History [NovoLOG MIX 70-30 Flexpen] sitaGLIPtin [Januvia] 100 mg PO DAILY 04/09/16 04/07/22 History Atorvastatin [Lipitor] 80 mg PO DAILY 01/03/18 04/07/22 History Furosemide [Lasix] 40 mg PO DAILY 01/03/18 04/07/22 History Empagliflozin [Jardiance] 10 mg PO DAILY 04/07/22 04/07/22 History Ezetimibe [Zetia] 10 mg PO DAILY 04/07/22 04/07/22 History Irbesartan [Avapro] 150 mg PO DAILY 04/07/22 04/07/22 History Pregabalin [Lyrica] 75 mg PO DAILY 04/07/22 04/07/22 History Semaglutide [Ozempic] 1 mg SQ Q7D 04/07/22 04/07/22 History Allergies Allergy/AdvReac Type Severity Reaction Status Date / Time pioglitazone [From Actos] Allergy Rash/Hives Verified 04/07/22 08:40 Physical Exam Vitals: Vital Signs Temp Pulse Resp BP Pulse Ox 04/07/22 09:45 66 13 97/41 100 04/07/22 09:30 68 12 91/63 98 04/07/22 09:15 79 12 113/61 99 04/07/22 09:00 97.5 F L 71 12 107/38 98 04/07/22 08:55 12 93 L 04/07/22 07:25 72 18 101/44 97 04/07/22 07:20 77 22 90/38 97 04/07/22 07:16 83 18 60/22 98 04/07/22 07:11 83 22 75/41 98 04/07/22 07:05 86 20 83/54 98 Intake and Output 04/06/22 04/07/22 04/07/22 22:59 06:59 14:59 Intake Total 827.021 Output Total 0 Balance 827.021 Intake: IV 470 Intake, IV Titration 357.021 Amount Magnesium Sulfate-D5w Pmx 200 1 gm In Dextrose/Water 1 100ml.bag @ 100 mls/hr IVPB Q1H [facility] Rx#: [id number] Norepinephrine 4 mg In 7.021 Sodium Chloride 0.9% 250 ml @ 0.05 MCG/KG/MIN 28. 083 mls/hr IV .Q9H3M [facility] Rx#:[id number] Sodium Chloride 0.9% 1, 150 000 ml @ 75 mls/hr IV . [id number] [facility] Rx#:[id number] Output: Urine 0 Other: Weight 147.418 kg -GENERAL: The patient is alert and oriented x3, not in any acute distress. Mor bidly obese, looks tired HEENT: Pupils are round and equally reacting to light. EOMI. No scleral icterus. No conjunctival pallor. Normocephalic, atraumatic. No pharyngeal erythema. No thyromegaly. CARDIOVASCULAR: S1 and S2 present. No murmurs, rubs, or gallops. PULMONARY: Chest is clear to auscultation, no wheezing or crackles. ABDOMEN: Soft, nontender, nondistended, normoactive bowel sounds. No palpable organomegaly. MUSCULOSKELETAL: No joint swelling or deformity. EXTREMITIES: No cyanosis, clubbing, or pedal edema. NEUROLOGICAL: Gross neurological examination did not reveal any focal deficits. SKIN: No rashes. No petechiae Results CBC & Chem 7: 04/07/22 07:15 04/07/22 07:15 Labs: Abnormal Lab Results - Last 24 Hours (Table) 04/07/22 04/07/22 04/07/22 Range/Units 07:15 07:15 07:15 Lymphocytes # 5.2 H (1.0-4.8) k/uL APTT 21.6 L (22.0-30.0) sec D-Dimer 1.62 H (<0.60) mg/L FEU BUN 57 H (9-20) mg/dL Creatinine 1.73 H (0.66-1.25) mg/dL Glucose 187 H (74-99) mg/dL POC Glucose (mg/dL) (75-99) mg/dL Magnesium 2.4 H (1.6-2.3) mg/dL 04/07/22 Range/Units 09:00 Lymphocytes # (1.0-4.8) k/uL APTT (22.0-30.0) sec D-Dimer (<0.60) mg/L FEU BUN (9-20) mg/dL Creatinine (0.66-1.25) mg/dL Glucose (74-99) mg/dL POC Glucose (mg/dL) 319 H (75-99) mg/dL Magnesium (1.6-2.3) mg/dL Assessment and Plan Assessment: Syncope with possible seizure-like activity Chest pain secondary to STEMI suspected, Status post negative cardiac cath Episodes of V. tach/VF, currently on amiodarone drip Possible acute kidney injury on chronic kidney disease Hypertension Hyperlipidemia Chronic kidney disease, stage III most likely diabetic nephropathy Diabetes mellitus History of osteoarthritis COPD, no acute exacerbation History of coronary artery disease status post stent to the RCA Chronic shoulder and knee pain Chronic back pain Morbid obesity BMI of 44.1 Plan: This is a pleasant 66 years old male who presents with chest pain suspicious for STEMI status post cardiac cath Continue with heparin drip Cardiology consult Follow-up creatinine continue with insulin sliding scale. If creatinine worsens we'll consider nephrology consult Continue with amiodarone drip with plaster caster on the case Consult neurology team Labs and medication were reviewed.. Continue same treatment. Continue with symptomatic treatment. Resume home medication. Monitor lytes and vitals. DVT and GI prophylaxis. Further recommendations depends on the clinical course of the patient DVT prophylaxis: heparin GI Prophylaxis: Pepcid Prognosis is guarded
[2022-04-07] MEDS: AMIODARONE 450 MG in DEXTROSE 5% IN WATER 250 ML IV SCH ×2 (14:01)
[2022-04-07] MEDS: HEPARIN SOD,PORK IN 0.45% NACL 25,000 UNIT in 0.45% NACL 1 250ML.BAG IV SCH (14:02)
[2022-04-07] MEDS ORDERED: ACETAMINOPHEN TAB 325 MG TAB PO STA (17:51)
--- NOTE | 2022-04-07 18:10 | EEG ---
ELECTROENCEPHALOGRAM REPORT DATE OF SERVICE: 04/07/2022 PREAMBLE: This is a 66-year-old male with syncopal spell versus seizure. This study is performed to evaluate for any epileptiform activity. EEG FINDINGS: This is a 21-channel digital EEG recorded with video component, utilizing 10/20 international system with referential and bipolar montages. Background consists of well developed, well regulated, low to moderate voltage activity in 8 to 9 hertz alpha. Background is posterior-dominant and reactive to eye opening and closing. Patient became drowsy during the middle part of the study with appearance of bilaterally symmetric theta frequency rhythm. Some stage II sleep with appearance of some sleep spindles. No focal or generalized epileptiform activity was seen. Photic driving response was not seen. EKG channel showed no significant arrhythmia. IMPRESSION: This is a normal EEG during wakefulness, drowsiness and stage II sleep. No epileptiform activity was seen. MMODL / IJN: [id number] /
[2022-04-07] MEDS ORDERED: PREGABALIN 75 MG CAP PO SCH (18:15)
[2022-04-07] MEDS ORDERED: FAMOTIDINE 20 MG/2 ML VIAL IV SCH ×2 (21:00)
[2022-04-07 21:01] LABS: Glucose,Whole Blood 277 mg/dL (75-99)
[2022-04-07] MEDS: PREGABALIN 75 MG CAP PO SCH (21:14)
[2022-04-07] MEDS: INSULIN ASPART (NovoLOG) 100 UNIT/ML VIAL SQ SCH (21:25)
[2022-04-08] MEDS: HEPARIN SOD,PORK IN 0.45% NACL 25,000 UNIT in 0.45% NACL 1 250ML.BAG IV SCH (04:34)
[2022-04-08] MEDS: NOREPINEPHRINE 4 MG in SODIUM CHLORIDE 0.9% 250 ML IV SCH ×3 (06:19→11:51)
[2022-04-08 07:01] LABS: Glucose,Whole Blood 148 mg/dL (75-99)
[2022-04-08] MEDS: INSULIN ASPART (NovoLOG) 100 UNIT/ML VIAL SQ SCH ×4 (07:04→20:40)
[2022-04-08 07:05] LABS: Prothrombin Time 10.8 sec (9.0-12.0)
[2022-04-08 07:12] LABS: Basophils % (A) 0 %; Eosinophils # (A) 0.3 k/uL (0-0.7); Eosinophils % (A) 3 %; HCT 42.7 % (39.0-53.0); HGB 13.8 gm/dL (13.0-17.5); Lymphocytes # (A) 1.7 k/uL (1.0-4.8); Lymphocytes % (A) 21 %; MCH 31.5 pg (25.0-35.0); MCHC 32.2 g/dL (31.0-37.0); MCV 97.8 fL (80.0-100.0); Mean Platelet Volume 7.7; Monocytes # (A) 0.4 k/uL (0-1.0); Monocytes % (A) 5 %; Neutrophils # (A) 5.5 k/uL (1.3-7.7); Neutrophils % (A) 69 %; Platelet Count 133 k/uL (150-450); RBC 4.36 m/uL (4.30-5.90); RDW 14.2 % (11.5-15.5)
[2022-04-08 07:23] LABS: Albumin 3.5 g/dL (3.5-5.0); Calcium 8.2 mg/dL (8.4-10.2); Magnesium 2.5 mg/dL (1.6-2.3); Potassium 5.1 mmol/L (3.5-5.1); Total Bilirubin 0.5 mg/dL (0.2-1.3); Total Protein 6.3 g/dL (6.3-8.2)
[2022-04-08] MEDS: AMIODARONE 450 MG in DEXTROSE 5% IN WATER 250 ML IV SCH ×2 (08:21)
[2022-04-08] MEDS: ATORVASTATIN 80 MG TAB PO SCH (08:22)
[2022-04-08] MEDS: AMIODARONE 200 MG TAB PO SCH ×2 (08:22→20:40)
[2022-04-08] MEDS: PREGABALIN 75 MG CAP PO SCH (08:22)
[2022-04-08] MEDS: HEPARIN SODIUM,PORCINE/PF 5,000 UNIT/0.5 ML SYRINGE SQ SCH ×2 (08:22→20:40)
[2022-04-08] MEDS: EZETIMIBE 10 MG TAB PO SCH (08:22)
--- NOTE | 2022-04-08 08:39 | P.CNNES ---
History of Present Illness Consult date: 04/07/22 Requesting physician: Garrett Bess Reason for Consult: Possible seizure History of Present Illness: Patient is a 66-year-old male came to the hospital by ambulance As per EMS flow sheet, patient was lethargic, breathing with pulse. 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 Patient was found by his . EKG revealed possible ST elevation, first-degree block. Oxygen saturation 78% on room air. Patient placed on oxygen via nasal cannular at 6 later per minute. Oxygen saturation did not improve. EMS change to 15 L/m via non-rebreather mask. Patient's vitals was blood pressure 168/128, pulse rate 66 respiration 20, saturation 75%. Blood sugar 98 mg/dL. Patient states that he was going to bathroom, all of a sudden he felt something going in his head, like electricity and next thing he remembers is that he had fallen on the clothes by the laundry. He was laying between the clotting rack in the washing machine. His states that she was in another room, heard a thud, and she thought that he may have dropped something in the laundry, did not pay any attention. Shortly after she heard him yelling for help. She went in, found him laying on the laundry clothes. He had lost control of bowels and bladder. There was no tongue bite. She told him that she will be calling the ambulance, but he said "no you are not calling 911". She thought that his blood glucose would be low, started giving him some corn syrup. She did not check his blood sugar. However he was not staying coherent, was in and out of talking, a nd would stop breathing. Shortly after while talking, his eye rolled back, started shaking of the body lasting for 15 seconds. He quit breathing but came back shortly. Patient's called ambulance. EKG shows sinus rhythm with frequent ventricular premature complexes. Chest x- ray showed right basilar subsegmental consolidation atelectasis favored over pneumonia. 2-D echo revealed technically difficult study. Normal left ventricular ejection fraction 55-60%. Mild MR. CTA of the chest negative for any embolism. Blood test shows normal CBC, PT/PTT, d-dimer is elevated 1.62. Electrolytes are normal, BUN 57 creatinine 1.73. Hepatic panel is normal, troponin negative. Last A1c 8.8 on 08/07/2021. B12 672, folate 26.1. Patient's medications include Lipitor 80 mg, Lasix, insulin, Januvia, Zetia, Lyrica 75 mg daily, and other cardiac and diabetic medications. No previous history of seizures, or childhood epilepsy. Patient states that 5 years ago he passed out in the front yard and turned purple, was diagnosed with acute MA at that time. Patient denies any history of tobacco or alcohol use. He has hypertension for 30 years, diabetes for 40 years. Patient was taken to cardiac cath. While on the cath table, patient had V. tach and V. fib, which responded well to shocks 3. CPR was not required. No stents were placed. Patient does have memory of the cardiac arrest, as he does remember receiving the shocks. Review of Systems All 14 points of review systems are reviewed, unremarkable except as mentioned above in HPI. Past Medical History Past Medical History: Coronary Artery Disease (CAD), COPD, Diabetes Mellitus, Hyperlipidemia, Hypertension, Myocardial Infarction (MA), Osteoarthritis (OA) Additional Past Medical History / Comment(s): Obesity, COPD with a baseline FEV1 of 43% of predicted based on a preop FEV1/spirometry my diabetes mellitus, hypertension, hyperlipidemia, coronary artery disease with previous coronary stenting of the RCA, osteoarthritis, bilateral chronic shoulder and knee pain, chronic back pain. open left leg since February 2017 Last Myocardial Infarction Date:: march 2016 History of Any Multi-Drug Resistant Organisms: MRSA Date of last positivie culture/infection: 2012 MDRO Source:: abdomen, rt.hip, Past Surgical History: Heart Catheterization, Heart Catheterization With Stent, Hernia Repair, Tonsillectomy Additional Past Surgical History / Comment(s): 01/07/12 cardiac stent x2, umbilical hernia repair, L knee arthroscopy, recent cardiac cath. Triple leg vessel left leg January 2017 Past Anesthesia/Blood Transfusion Reactions: Motion Sickness, Postoperative Nausea & Vomiting (PONV) Date of Last Stent Placement:: 01/07/12 Past Psychological History: No Psychological Hx Reported Past Alcohol Use History: Rare Past Drug Use History: None Reported - Past Family History Father Family Medical History: Cancer, COPD, CVA/TIA Additional Family Medical History / Comment(s): Prostate cancer, heart problems. Father of a CVA at age 78yrs. Mother Family Medical History: Diabetes Mellitus, Myocardial Infarction (MA) Additional Family Medical History / Comment(s): Mother of a massive MA at the age of 62 yrs. Medications and Allergies Home Medications Medication Instructions Recorded Confirmed Type Insulin Aspart Protam & Aspart 100 unit SQ BID 04/09/16 04/07/22 History [NovoLOG MIX 70-30 Flexpen] sitaGLIPtin [Januvia] 100 mg PO DAILY 04/09/16 04/07/22 History Atorvastatin [Lipitor] 80 mg PO DAILY 01/03/18 04/07/22 History Furosemide [Lasix] 40 mg PO DAILY 01/03/18 04/07/22 History Empagliflozin [Jardiance] 10 mg PO DAILY 04/07/22 04/07/22 History Ezetimibe [Zetia] 10 mg PO DAILY 04/07/22 04/07/22 History Irbesartan [Avapro] 150 mg PO DAILY 04/07/22 04/07/22 History Pregabalin [Lyrica] 75 mg PO DAILY 04/07/22 04/07/22 History Semaglutide [Ozempic] 1 mg SQ Q7D 04/07/22 04/07/22 History Allergies Allergy/AdvReac Type Severity Reaction Status Date / Time pioglitazone [From [place]] Allergy Rash/Hives Verified 04/07/22 08:40 Physical Examination - Vital Signs Vital Signs: Vital Signs Temp Pulse Resp BP Pulse Ox 04/07/22 12:45 70 18 105/61 97 04/07/22 12:30 69 12 124/54 97 04/07/22 12:15 71 16 116/59 98 04/07/22 12:00 97.5 F L 66 12 117/74 98 04/07/22 11:15 65 14 106/39 04/07/22 11:00 64 14 84/70 98 04/07/22 10:45 64 14 90/44 99 04/07/22 10:30 65 14 73/39 98 04/07/22 10:15 71 10 L 83/26 98 04/07/22 10:00 64 20 100 04/07/22 09:45 66 13 97/41 100 04/07/22 09:30 68 12 91/63 98 04/07/22 09:15 79 12 113/61 99 04/07/22 09:00 97.5 F L 71 12 107/38 98 04/07/22 08:55 12 93 L 04/07/22 07:25 72 18 101/44 97 04/07/22 07:20 77 22 90/38 97 04/07/22 07:16 83 18 60/22 98 04/07/22 07:11 83 22 75/41 98 04/07/22 07:05 86 20 83/54 98 Intake and Output 04/06/22 04/07/22 04/07/22 22:59 06:59 14:59 Intake Total 1562.786 Output Total 600 Balance 962.786 Intake: IV 470 Intake, IV Titration 1092.786 Amount Magnesium Sulfate-D5w Pmx 200 1 gm In Dextrose/Water 1 100ml.bag @ 100 mls/hr IVPB Q1H [facility] Rx#: [id number] Norepinephrine 4 mg In 17.786 Sodium Chloride 0.9% 250 ml @ 0.05 MCG/KG/MIN 28. 083 mls/hr IV .Q9H3M [facility] Rx#:[id number] Sodium Chloride 0.9% 1, 375 000 ml @ 75 mls/hr IV . Q31H69O [facility] Rx#:[id number] Sodium Chloride 0.9% 500 500 ml 500 ml @ 999 mls/hr IV .Q31M [facility] Rx#:[id number] Output: Urine 600 Other: Weight 147.418 kg Patient is an elderly male, obese, in no acute distress. He does get easily short of breath with muscle testing as below. Patient is alert awake oriented to time place and person. Speech and language functions are normal. Patient can name and repeat. No aphasia or dysarthria. Attention, concentration and fund of knowledge is adequate. On cranial examination, pupils are round and reacting to light, visual cross are full on confrontation, extraocular muscles are intact with no nystagmus. Face is symmetric, tongue protrudes to the midline. Palatal elevation and sensation normal, hearing and shoulder shrug normal, facial sensation normal. Shoulder shrug normal. On muscle strength testing, there is no pronator drift and the strength is normal in arms and legs distally and proximally. Deep tendon reflexes are trace to 1 in the upper and lower limbs and plantars downgoing. Sensory to touch is equal with no neglect. Cerebellar function showed no ataxia for [id number] testing. No dysdiadoch okinesia. Tone and bulk of muscles normal. Gait not checked. On general examination, there is no carotid bruit or murmur, S1-S2 audible. Abdomen is soft nontender. Chest is clear. Peripheral pulses are present. Results - Laboratory Findings CBC and BMP: 04/08/22 06:31 04/08/22 06:31 Abnormal Lab Findings: Abnormal Labs 04/07/22 04/07/22 04/07/22 07:15 07:15 07:15 Lymphocytes # 5.2 H APTT 21.6 L D-Dimer 1.62 H BUN 57 H Creatinine 1.73 H Glucose 187 H POC Glucose (mg/dL) Magnesium 2.4 H 04/07/22 04/07/22 09:00 12:05 Lymphocytes # APTT D-Dimer BUN Creatinine Glucose POC Glucose (mg/dL) 319 H 220 H Magnesium Assessment and Plan Assessment: * Convulsive syncope versus seizure, possibly due to arrhythmia * Episode of V. tach/V. fib in the [employer], requiring shock. * Diabetes * Coronary artery disease * COPD * Hypertension * Hyperlipidemia * Osteoarthritis Plan: * Patient underwent EEG, which was normal during wakefulness, drowsiness and stage II sleep. No epileptiform activity was seen. * 2-D echo revealed normal left ventricular ejection fraction 55-60%. Mild MR. Left atrium not well visualized. * Check carotid Doppler. * Patient's syncopal spell was likely due to arrhythmia. Cardiology on board. Continue telemetry monitoring. * Patient currently on Lipitor 80 mg and heparin IV since patient had V. fib during cardiac cath. * Continue aspirin regimen. * Neurology will follow. Thank you for the consult.
[2022-04-08 11:40] LABS: Glucose,Whole Blood 147 mg/dL (75-99)
[2022-04-08] MEDS: FAMOTIDINE 20 MG TAB PO SCH ×2 (11:50→20:40)
[2022-04-08 13:57] VITALS: BMI 45.0
--- NOTE | 2022-04-08 13:57 | P.PN ---
Subjective This is a pleasant 66 years old male with past medical history of Coronary Artery Disease , COPD, Diabetes Mellitus, Hyperlipidemia, Hypertension, O steoarthritis (OA), COPD with a baseline FEV1 of 43% of predicted , bilateral chronic shoulder and knee pain, chronic back pain. No presents because of falling and syncope. Information were obtained with the help of the at bedside. Patients and stated that this morning he was going to the restroom when he fell and passed out, it was lying on the left side when his found him, shortly thereafter he had 2 episodes of stiffness and shakiness all over with iron back and he was not responding, also associated with some stool incontinence but no tongue biting or urinary incontinence. He remained confused for 10-15 minutes after last shakiness like activity when EMS start to get him up, he start remember things around him. When admitted to the hospital he had the STEMI code patient went to emergent cardiac cath but no stent placed, please refer to the cardiac cath report for mo re details. Currently he was moved to the ICU, it looks like patient developed also short episodes of V. tach/VF and was started on amiodarone drip. Also he needed short dose of Levophed, however his blood pressure is holding up without any pressors for now. Is lying in bed not in distress, he is fully awake and oriented but looks tired. Let's with at bedtime. He denies any chest pain or breathing difficulty. No headache or weakness or numbness or blurred vision. No abdominal pain or vomiting. No diarrhea. No dysuria or urgency. He denies smoking, alcohol or illicit tracts. Also he is a diabetic and his been using 70:30 insulin and Januvia and other medications that he was noncompliant of. He was taken his numbers were trending 150-300 as per patient. At 2 or fewer episodes of count 80s 2 weeks ago. As per when she checked his sugar was 156 but that after she gave him some sugar still. Vascular he has sleep apnea but he does not use his CPAP machine at home. Patient vitals are reviewed he is afebrile, blood pressure 97/41. CBC is unremarkable, INR 0.9, d-dimer elevated at 1.6. BMP is unremarkable. Creatinine 1.7 which is elevated Echocardiogram: Ejection fraction 55-60% in emergency room patient given aspirin and heparin drip. Echocardiogram: EF 55-60%. CT of the chest is negative for pulmonary embolism 04/08/2022 Patient looks awake and alert while sitting in chair today, looks comfortable and denies any specific complaint. His EEG is negative. Most likely patient has a brief episode of seizure secondary to arrhythmia machine ii coremaker on board and patient underwent cardiac cath. Heparin drip was stopped and switched to subcu heparin, he was still getting am iodarone drip this morning, he was started on amiodarone pills 200 mg, losartan 25 mg of metoprolol 12.5 mg. Also received one day dose of cefazolin antibiotics. His glucose still controlled while keeping holding his other medication including insulin 70:30, jardiance and sitagliptin. His hemoglobin A1c is elevated at 10%. His creatinine down to 1.4. We'll check venous Doppler of the legs to rule out DVT as he has some leg swelling Objective - Vital Signs Vital signs: Vital Signs Temp 98.7 F 04/08/22 08:00 Pulse 61 04/08/22 10:00 Resp 16 04/08/22 10:00 BP 121/54 04/08/22 10:00 Pulse Ox 94 L 04/08/22 10:00 FiO2 Intake & Output 04/07/22 04/08/22 04/08/22 18:59 06:59 18:59 Intake Total 1884.938 754.0 20 Output Total 1500 1050 Balance 384.938 -296.0 20 Weight 147.418 kg 150.5 kg Intake: IV 470 594.0 20 Amiodarone 450 mg In 199.2 Dextrose 5% in Water 250 ml @ 0.5 MG/MIN 16.667 mls/hr IV .Q15H [facility] Rx#: [id number] Heparin Sod,Pork in 0.45% 154.8 NaCl 25,000 unit In 0.45 % NaCl 1 250ml.bag @ 6. 7834 UNITS/KG/HR 10 mls/ hr IV .Q24H [facility] Rx#: [id number] Sodium Chloride 0.9% 1, 240 20 000 ml @ 75 mls/hr IV . [id number] [facility] Rx#:[id number] Intake, IV Titration 1414.938 160 Amount Heparin Sod,Pork in 0.45% 37.152 140 NaCl 25,000 unit In 0.45 % NaCl 1 250ml.bag @ 6. 781 UNITS/KG/HR 9.996 mls /hr IV .Q24H [facility] Rx#: [id number] Magnesium Sulfate-D5w Pmx 200 1 gm In Dextrose/Water 1 100ml.bag @ 100 mls/hr IVPB Q1H [facility] Rx#: [id number] Norepinephrine 4 mg In 17.786 Sodium Chloride 0.9% 250 ml @ 0.05 MCG/KG/MIN 28. 083 mls/hr IV .Q9H3M [facility] Rx#:[id number] Sodium Chloride 0.9% 1, 660 20 000 ml @ 75 mls/hr IV . [id number] [facility] Rx#:[id number] Sodium Chloride 0.9% 500 500 ml 500 ml @ 999 mls/hr IV .Q31M [facility] Rx#:[id number] Output: Urine 1500 1050 Other: Voiding Method Urinal Urinal - Exam -GENERAL: The patient is alert and oriented x3, not in any acute distress. Morbidly obese. HEENT: Pupils are round and equally reacting to light. EOMI. No scleral icterus. No conjunctival pallor. Normocephalic, atraumatic. No pharyngeal erythema. No thyromegaly. CARDIOVASCULAR: S1 and S2 present. No murmurs, rubs, or gallops. PULMONARY: Chest is clear to auscultation, no wheezing or crackles. ABDOMEN: Soft, nontender, nondistended, normoactive bowel sounds. No palpable organomegaly. MUSCULOSKELETAL: No joint swelling or deformity. -EXTREMITIES: No cyanosis, . 1+ bilateral pitting leg edema NEUROLOGICAL: Gross neurological examination did not reveal any focal deficits. SKIN: No rashes. no petechiae. - Labs CBC & Chem 7: 04/08/22 06:31 04/08/22 06:31 Labs: Abnormal Lab Results - Last 24 Hours (Table) 04/07/22 04/07/22 04/07/22 Range/Units 12:05 17:16 20:58 Plt Count (150-450) k/uL APTT 38.4 H (22.0-30.0) sec BUN (9-20) mg/dL Creatinine (0.66-1.25) mg/dL Glucose (74-99) mg/dL POC Glucose (mg/dL) 220 H 277 H (75-99) mg/dL Hemoglobin A1c (0.0-6.0) % Calcium (8.4-10.2) mg/dL Magnesium (1.6-2.3) mg/dL 04/07/22 04/08/22 04/08/22 Range/Units 23:44 06:31 06:31 Plt Count 133 L (150-450) k/uL APTT 46.4 H (22.0-30.0) sec BUN (9-20) mg/dL Creatinine (0.66-1.25) mg/dL Glucose (74-99) mg/dL POC Glucose (mg/dL) (75-99) mg/dL Hemoglobin A1c 10.0 H (0.0-6.0) % Calcium (8.4-10.2) mg/dL Magnesium (1.6-2.3) mg/dL 04/08/22 04/08/22 Range/Units 06:31 06:59 Plt Count (150-450) k/uL APTT (22.0-30.0) sec BUN 36 H (9-20) mg/dL Creatinine 1.41 H (0.66-1.25) mg/dL Glucose 142 H (74-99) mg/dL POC Glucose (mg/dL) 148 H (75-99) mg/dL Hemoglobin A1c (0.0-6.0) % Calcium 8.2 L (8.4-10.2) mg/dL Magnesium 2.5 H (1.6-2.3) mg/dL Assessment and Plan Assessment: Syncope with possible seizure-like activity, most likely secondary to arrhythmia. Chest pain secondary to STEMI suspected, Status post negative cardiac cath Episodes of V. tach/VF, currently on amiodarone and metoprolol Possible acute kidney injury on chronic kidney disease. Improving bilateral leg edema Hypertension Hyperlipidemia Chronic kidney disease, stage III most likely diabetic nephropathy Diabetes mellitus History of osteoarthritis COPD, no acute exacerbation History of coronary artery disease status post stent to the RCA Chronic shoulder and knee pain Chronic back pain Morbid obesity BMI of 44.1 Plan: This is a pleasant 66 years old male who presents with chest pain suspicious for STEMI status post cardiac cath Continue with heparin subcutaneous Continue with amiodarone, metoprolol Cardiology consult Follow-up creatinine continue with insulin sliding scale. Check leg ultrasound and carotid duplex Consult neurology team Labs and medication were reviewed.. Continue same treatment. Continue with symptomatic treatment. Resume home medication. Monitor lytes and vitals. DVT and GI prophylaxis. Further recommendations depends on the clinical course of the patient DVT prophylaxis: heparin GI Prophylaxis: Pepcid Prognosis is guarded
--- NOTE | 2022-04-08 14:23 | PN ---
PROGRESS NOTE This gentleman came in yesterday with syncope and acute ischemic syndrome. Cardiac cath revealed no significant obstruction to explain his presentation. There was also an episode of ventricular tachycardia that occurred when the diagonal graft was being injected. Patient had prior bypass surgery with patent grafts, normal LV function, no significant troponin elevation, and CT angiogram was also negative for pulmonary embolism. I will recommend that we get an additional troponin level today and put him on 81 mg of aspirin, add a beta rachel and losartan, increase activity. Given his episodes of syncope and documented ventricular tachycardia that however happened with injection of the diagonal graft, I am still recommending a loop recorder to be placed tomorrow and possible discharge in the next 24 to 48 hours. Patient is not on any pressors. Blood pressure is good. Urine output is decent. Creatinine is improved. S1- S2 heard normally but distantly. Short systolic murmur noted. Lungs reveal improved air entry. Abdomen and lower extremity exam is unchanged. Plan is to increase activity, loop recorder tomorrow, and possible discharge in the next 24 to 48 hours. MMODL / IJN: [id number] /
[2022-04-08 16:45] LABS: Glucose,Whole Blood 233 mg/dL (75-99)
--- NOTE | 2022-04-08 16:50 | US ---
EXAMINATION TYPE: US carotid duplex BILAT DATE OF EXAM: 04/08/2022 COMPARISON: NONE CLINICAL HISTORY: Syncope vs seizure. EXAM MEASUREMENTS: RIGHT: Peak Systolic Velocity (PSV) cm/sec ----- Right CCA: 71.3 ----- Right ICA: 97.4 ----- Right ECA: 127.0 ICA/CCA ratio: 1.4 RIGHT: End Diastole cm/sec ----- Right CCA: 12.0 ----- Right ICA: 23.7 ----- Right ECA: 5.8 LEFT: Peak Systolic Velocity (PSV) cm/sec ----- Left CCA: 86.1 ----- Left ICA: 94.9 ----- Left ECA: 162.2 ICA/CCA ratio: 1.1 LEFT: End Diastole cm/sec ----- Left CCA: 14.6 ----- Left ICA: 22.3 ----- Left ECA: 16.0 VERTEBRALS (direction of flow): Right Vertebral: Antegrade Left Vertebral: Antegrade Rhythm: Normal Morbidly obese patient, large thick neck, technically difficult. Mild to moderate atherosclerotic changes with no significant velocity increases. IMPRESSION: Less than 50% stenosis of the bilateral carotid systems. Criteria for Assigning % of Stenosis / Diameter reduction (Estimation based on the indirect measurements of the internal carotid artery velocities (ICA PSV). 1. Normal (no stenosis)=ICA PSV < 125 cm/s: ratio < 2.0: ICA EDV<40 cm/s. 2. Less than 50% stenosis=ICA PSV < 125 cm/s: ratio < 2.0: ICA EDV<40 cm/s. 3. 50 to 69% stenosis=ICA PSV of 125 to 230 cm/s: ration 2.0 ? 4.0: ICA EDV 40-100 cm/s. 4. Greater than 70% stenosis to near occlusion= ICA PSV > 230 cm/s: ratio > 4.0: ICA EDV > 100 cm/s. 5. Near occlusion= ICA PSV velocities may be low or undetectable: variable ratio and ICA EDV. 6. Total occlusion=unable to detect flow.
--- NOTE | 2022-04-08 16:51 | US ---
EXAMINATION TYPE: US venous doppler duplex LE DATE OF EXAM: 04/08/2022 4:07 PM COMPARISON: NONE CLINICAL HISTORY: leg swelling. SIDE PERFORMED: Bilateral TECHNIQUE: The lower extremity deep venous system is examined utilizing real time linear array sonog court with graded compression, doppler sonography and color-flow sonography. VESSELS IMAGED: Common Femoral Vein Deep Femoral Vein Greater Saphenous Vein * Femoral Vein Popliteal Vein Small Saphenous Vein * Proximal Calf Veins (* superficial vessels) Morbidly obese patient. Unable to scan in right groin due to fem stop and bandaging and body habitus. Visualization in left groin limited due to body habitus. Grayscale, color doppler, spectral doppler imaging performed of the deep veins of the lower extremiti es. There is normal flow, compressibility, vascular waveforms. Right Leg: Negative for DVT Left Leg: Negative for DVT IMPRESSION: No evidence of deep vein thrombosis in either lower extremity.
[2022-04-08 20:12] LABS: Glucose,Whole Blood 212 mg/dL (75-99)
[2022-04-08] MEDS: METOPROLOL TARTRATE 12.5 MG TAB PO SCH (20:40)
[2022-04-08] MEDS: SODIUM CHLORIDE 0.9% 1,000 ML IV SCH (23:08)
[2022-04-08] MEDS: ACETAMINOPHEN TAB 325 MG TAB PO PRN (23:09)
[2022-04-09] MEDS: ACETAMINOPHEN TAB 325 MG TAB PO PRN (04:47)
[2022-04-09] MEDS: HEPARIN SODIUM,PORCINE/PF 5,000 UNIT/0.5 ML SYRINGE SQ SCH (05:33)
[2022-04-09] MEDS: INSULIN ASPART (NovoLOG) 100 UNIT/ML VIAL SQ SCH ×3 (05:33→13:55)
[2022-04-09] MEDS: ATORVASTATIN 80 MG TAB PO SCH (05:37)
[2022-04-09] MEDS: FAMOTIDINE 20 MG TAB PO SCH (05:38)
[2022-04-09] MEDS: PREGABALIN 75 MG CAP PO SCH (05:38)
[2022-04-09] MEDS: AMIODARONE 200 MG TAB PO SCH (05:39)
[2022-04-09] MEDS: EZETIMIBE 10 MG TAB PO SCH (05:39)
[2022-04-09] MEDS: METOPROLOL TARTRATE 12.5 MG TAB PO SCH (05:39)
[2022-04-09 06:22] LABS: Basophils # (A) 0.1 k/uL (0-0.2); Basophils % (A) 1 %; Eosinophils # (A) 0.3 k/uL (0-0.7); Eosinophils % (A) 5 %; HCT 41.6 % (39.0-53.0); HGB 13.2 gm/dL (13.0-17.5); Lymphocytes # (A) 1.5 k/uL (1.0-4.8); Lymphocytes % (A) 24 %; MCH 30.8 pg (25.0-35.0); MCHC 31.7 g/dL (31.0-37.0); MCV 97.2 fL (80.0-100.0); Mean Platelet Volume 7.6; Monocytes # (A) 0.4 k/uL (0-1.0); Monocytes % (A) 6 %; Neutrophils % (A) 63 %; Platelet Count 118 k/uL (150-450); RBC 4.28 m/uL (4.30-5.90); RDW 13.3 % (11.5-15.5); WBC 6.4 k/uL (3.8-10.6)
[2022-04-09 06:56] LABS: Calcium 8.2 mg/dL (8.4-10.2); Magnesium 2.2 mg/dL (1.6-2.3); Potassium 4.9 mmol/L (3.5-5.1)
[2022-04-09] MEDS ORDERED: ceFAZolin 3 GM in SODIUM CHLORIDE 0.9% 100 ML IVPB PRN (07:00)
[2022-04-09 07:59] LABS: Glucose,Whole Blood 166 mg/dL (75-99)
--- NOTE | 2022-04-09 08:36 | P.PN ---
Subjective Progress Note Date: 04/08/22 Patient was seen for a follow-up. Patient is laying comfortably in the bed. Offers no complaints. No further syncopal spells. Objective - Vital Signs Vital signs: Vital Signs Temp 98.1 F 04/09/22 04:00 Pulse 65 04/09/22 04:00 Resp 17 04/09/22 04:00 BP 128/63 04/09/22 04:00 Pulse Ox 96 04/09/22 04:00 FiO2 Intake & Output 04/08/22 04/09/22 04/09/22 18:59 06:59 18:59 Intake Total 670 150 Output Total 1350 800 Balance -680 -650 Weight 150.5 kg Intake: IV 20 Sodium Chloride 0.9% 1, 20 000 ml @ 75 mls/hr IV . [id number] PILAR Rx#:[id number] Intake, IV Titration 150 Amount Sodium Chloride 0.9% 1, 150 000 ml @ 50 mls/hr IV . Q20H PILAR Rx#:[id number] Oral 650 Output: Urine 1350 800 Other: Voiding Method Urinal - Exam Patient's mental status is normal. Examination nonfocal. - Labs CBC & Chem 7: 04/09/22 06:04 04/09/22 06:04 Labs: Abnormal Lab Results - Last 24 Hours (Table) 04/08/22 04/08/22 04/08/22 Range/Units 06:31 06:31 11:39 RBC (4.30-5.90) m/uL Plt Count (150-450) k/uL Sodium (137-145) mmol/L BUN (9-20) mg/dL Glucose (74-99) mg/dL POC Glucose (mg/dL) 147 H (75-99) mg/dL Hemoglobin A1c 10.0 H (0.0-6.0) % Calcium (8.4-10.2) mg/dL Troponin I 0.104 H* (0.000-0.034) ng/mL 04/08/22 04/08/22 04/09/22 Range/Units 16:44 20:10 06:04 RBC 4.28 L (4.30-5.90) m/uL Plt Count 118 L (150-450) k/uL Sodium (137-145) mmol/L BUN (9-20) mg/dL Glucose (74-99) mg/dL POC Glucose (mg/dL) 233 H 212 H (75-99) mg/dL Hemoglobin A1c (0.0-6.0) % Calcium (8.4-10.2) mg/dL Troponin I (0.000-0.034) ng/mL 04/09/22 04/09/22 Range/Units 06:04 07:57 RBC (4.30-5.90) m/uL Plt Count (150-450) k/uL Sodium 136 L (137-145) mmol/L BUN 25 H (9-20) mg/dL Glucose 156 H (74-99) mg/dL POC Glucose (mg/dL) 166 H (75-99) mg/dL Hemoglobin A1c (0.0-6.0) % Calcium 8.2 L (8.4-10.2) mg/dL Troponin I (0.000-0.034) ng/mL Assessment and Plan Assessment: * Convulsive syncope versus seizure, possibly due to arrhythmia * Episode of V. tach/V. fib in the Apartment Maintenance, requiring shock. * Diabetes * Coronary artery disease * COPD * Hypertension * Hyperlipidemia * Osteoarthritis Plan: * EEG 04/07/2022 was normal during wakefulness, drowsiness and stage II sleep. No epileptiform activity was seen. * 2-D echo revealed normal left ventricular ejection fraction 55-60%. Mild MR. Left atrium not well visualized. * Carotid Doppler revealed less than 50% stenosis bilateral ICA. Antegrade flow in both vertebral arteries. * Patient's syncopal spell was likely due to arrhythmia. Cardiology on board. Continue telemetry monitoring. * Patient currently on Lipitor 80 mg. * Continue aspirin regimen. * Patient on heparin subcu for DVT prophylaxis. * No other neurological workup indicated. Patient is clear from neurology standpoint.
[2022-04-09] MEDS ORDERED: ASPIRIN 81 MG PO SCH (09:00)
[2022-04-09] MEDS ORDERED: LOSARTAN 25 MG TAB PO SCH (09:00)
[2022-04-09] MEDS ORDERED: MIDAZOLAM 2 MG/2 ML VIAL ONE (09:30)
[2022-04-09] MEDS ORDERED: MIDAZOLAM 2 MG/2 ML VIAL IV ONE (09:35)
[2022-04-09] MEDS ORDERED: LIDOCAINE 1% INJ 10MG/ML (30 ML VIAL-PF) SQ ONE (09:37)
[2022-04-09 11:10] LABS: Glucose,Whole Blood 132 mg/dL (75-99)
--- NOTE | 2022-04-09 11:17 | PCN ---
PROCEDURE NOTE DATE OF SERVICE: 04/09/2022. PROCEDURE: Loop recorder insertion. INDICATION: Syncope with with episodes of ventricular ectopy. CLINICAL INFORMATION: Mr. Rico is a 66-year-old gentleman, with history of aortocoronary bypass surgery, hypertension, hyperlipidemia, who presented with syncope. Cardiac cath revealed no significant obstruction. Bypasses were patent. However, during injection of the diagonal graft, he had a run of ventricular tachycardia requiring to be shocked. Given the syncope and ventricular ectopy, even though it was related to coronary injection, given the circumstances, he was advised to have a loop recorder and will be on amiodarone. He will be followed closely. The rationale, risks, benefits, options were explained. PROCEDURE NOTE: Under the influence of Versed for sedation, under strict aseptic precautions and local anesthesia with the provided tool, a stab incision was made in the left 4th intercostal space in the lateral direction. Using the plunger, the device was advanced and inserted with the available plunger and device. The device was interrogated. The R- wave amplitudes were 0.5 mV. The device was activated and set up for syncope protocol with low rate of 40, high rate of 150 beats per minute. The procedure was performed uneventfully. Device info : Medtronic LINQ 11 SN [id number] Moderate conscious sedation time was about 10 minutes. There were no complications. The details were discussed with the patient. No family was available. He will be followed in the office in 1 week. MMODMilagros / CARMENN: [id number] / MTDSeth
--- NOTE | 2022-04-09 11:21 | PCN ---
PROCEDURE NOTE ADDENDUM: PROCEDURE: Loop recorder insertion. LOOP RECORDER DETAILS: Editorial Manager: Medtronic model [id number]. aWhere link LNQ 11, serial number [id number]. The loop recorder was set for syncope protocol with a detection for a low rate of 40 and a high rate of 150. MMHARRISON / CARMENN: [id number] /
[2022-04-09] MEDS: SODIUM CHLORIDE 0.9% 1,000 ML IV SCH (13:54)
--- NOTE | 2022-04-09 15:25 | CDI ---
Documentation Clarification Form Date: 04/09/2022 12:39:37 PM From: Gunjan Hernández RN CCDS Admit Date: 04/07/2022 07:23:00 AM Patient Name: Reynaldo Rico Visit Number: [id number] Discharge Date: ATTENTION: The Clinical Documentation Specialists (CDI) and [facility] Coding Staff appreciate your assistance in clarifying documentation. Please respond to the clarification below the line at the bottom and electronically sign. The CDI & [facility] Coding staff will review the response and follow-up if needed. Please note: Queries are made part of the Legal Health Record. If you have any questions, please contact the author of this message via ITS. Dr. Darshan Lopez MD Cardiac arrest is documented 04/07, Cardiology consult and patient had Cardiac Catheterization, 04/07/22. Additional clarification is requested regarding the relationship, if any, that exists between the diagnosis and the procedure. Patients Admitting Diagnosis: Syncopal episode and EKG concerning for acute coronary syndrome Post-Operative Diagnosis: Occluded LAD. The WITT to LAD is patent. The SVG to diagonal is patent. Patent SVG to ramus intermedius. Mild disease involving the LCx. Mild disease involving the RCA. Normal left sided filling pressure. Procedure performed: Selective right and left coronary angiogram. WITT to LAD angiogram. SVG to diagonal angiogram. SVG to ramus intermedius angiogram. Selective right common femoral artery. Left heart catheterization. History/Risk Factors: 66-year-old male presents to the ED via EMS after falling and passing out with 2 episodes of stiffness, shakiness and not responding. Medical History: CAD, HTN, COPD and chronic back pain. H&P, 04/07. Clinical Indicators: VSS: 04/07 B/P 83/54; HR 86; RR 20; SpO2 98% 15L non rebreather. Troponin: 04/07 0.019; 04/08 0.104 Cardiology consult: 04/07 Assessment: status post cardiac arrest with V.tach. The patient received CHOP. Neuro Consult: 04/07 While on the cath table, patient had V.tach and V.fib, which responded well to shocks x 3. CPR was not required. Loop recorder procedure note: 04/09 However, during injection of the diagonal graft, he had a run of ventricular tachycardia requiring to be shocked. Treatment: 04/07 Shock x 3; 04/07 Amioadarone drip What relationship, if any, exists between the diagnosis of cardiac arrest and the procedure: [ ] Cardiac arrest is a complication of surgical procedure [X] Cardiac arrest is an expected outcome of the surgical procedure [ ] Cardiac arrest is related to patients co-morbid condition(s) of (please specify) & not a complication of the procedure [ ] Other please specify ____ [ ] Unable to determine (Template Last Revised: January 2021) KENTOND
[2022-04-09 16:37] VITALS: BP 135/64; PULSE 60; RESP 20; TEMP 97.9
--- NOTE | 2022-04-09 16:50 | PN ---
PROGRESS NOTE This gentleman has history of CAD, prior bypass surgery, underwent cardiac cath by Dr. Lopez yesterday which did not reveal any significant blockages. His bypass grafts are patent. He presented with syncope, had ventricular tachycardia requiring to be shocked, but this occurred after injection into the diagonal graft. I am therefore suggesting that he should have a loop recorder. We had a long discussion regarding this with the patient and his , and he will have a loop recorder mainly to detect any etiology for syncope. Risks, benefits, options and rationale were explained. Patient understands all details and wishes to proceed with the procedure. Vitals are stable. No JVD. S1-S2 heard normally. Lungs are clear. Abdomen and lower extremity exam unchanged. Patient had an isolated PVC; otherwise doing well. Plan is to increase activity. Possible discharge today after loop recorder. He will follow with Dr. Lopez in about a week for device check also. MMODL / IJN: [id number] /
--- NOTE | 2022-04-09 21:11 | P.DS ---
Providers Date of admission: 04/07/22 07:23 Attending physician: Evans Last Consults: 04/07/22 09:39 Consult Physician Routine Consulting Provider: Darshan Lopez Consult Reason/Comments: STEMI,vtach, vfib Do you want consulting provider notified?: Already Contacted Placement Type Exists?: Yes 04/07/22 12:21 Consult Physician Urgent Consulting Provider: Donald Crump Consult Reason/Comments: possible seizure Do you want consulting provider notified?: Yes Placement Type Exists?: Yes Primary care physician: Evnas Last Hospital Course: Syncope with possible seizure-like activity, most likely secondary to arrhythmia. Chest pain secondary to STEMI suspected, Status post negative cardiac cath Episodes of V. tach/VF, currently on amiodarone and metoprolol Possible acute kidney injury on chronic kidney disease. Improving bilateral leg edema Hypertension Hyperlipidemia Chronic kidney disease, stage III most likely diabetic nephropathy Diabetes mellitus History of osteoarthritis COPD, no acute exacerbation History of coronary artery disease status post stent to the RCA Chronic shoulder and knee pain Chronic back pain Morbid obesity BMI of 44.1 Hospital course: This is a pleasant 66 years old male with past medical history of Coronary Artery Disease , COPD, Diabetes Mellitus, Hyperlipidemia, Hypertension, Osteoarthritis (OA), COPD with a baseline FEV1 of 43% of predicted , bilateral chronic shoulder and knee pain, chronic back pain. Patients and stated that he was going to the restroom when he fell and passed out, also there was suspicion of seizure-like activity and stool incontinence that lasted about 15 minutes. Patient has been evaluated by brick grader and insurance territory manager and he underwent cardiac cath which was unremarkable but his course was complicated by V. tach and he was treated with amiodarone drip which is switched to oral amiodarone upon discharge. An event monitor was placed for the patient prior to discharge by brick grader Also neurologist workup was unremarkable. CTA of the chest was negative for PE. EEG was normal. His hemoglobin A1c was elevated at 10% Patient remained hemodynamically stable, in the day of discharge he denies chest pain, no dyspnea, no GI or urinary symptoms. No fever. Patient was eager to go home today. Patient was cleared for discharge by brick grader and the neurologist. Patient is discharged on amiodarone and metoprolol and aspirin per brick grader. While his insulin 70:30 units twice a day and ozempic were held upon discharge as his glucose was controlled with diet only. However patient states that he eats more at home therefore recommended to resume Januvia and genitalia is upon discharge, anyhow patient was instructed to close monitoring of glucose 4 times a day, see discharge instructions. Patient states he is comfortable managing his diabetes as his been having this illness for 25 years. In the agrees with this recommendation. Also he was referred to kitchen food assembler as an outpatient for uncontrolled diabetes with hemoglobin A1c elevated at 10% Problems and management plan were discussed with the patient and he verbalized understanding and acceptance Patient was found stable and can be discharged home in guarded prognosis however he needs follow-up as an outpatient. Patient was instructed to follow up with PCP Dr. Last within one week and patient agrees Patient was instructed to follow up with brick grader Dr. Mosley on 04/19 and he agrees and also referred to kitchen food assembler Dr. Garcia and/or 7-10 days and he agrees to call and make appointment Physical exam Gen: patient is a AAOx3, no distress CVS: S1-S2, RRR, no murmur Lungs: B/L CTA, no wheezing Abdomen: soft, no distention, no tenderness, positive bowel sounds Extremity: no leg edema or induration Time spent more than 35 minutes Patient Condition at Discharge: Serious Plan - Discharge Summary Discharge Rx Participant: Yes New Discharge Prescriptions: New Amiodarone [Cordarone] 200 mg PO BID #60 tab Metoprolol Tartrate [Lopressor] 12.5 mg PO BID #60 tab Aspirin 81 mg PO DAILY #30 tab Continue sitaGLIPtin [Januvia] 100 mg PO DAILY Atorvastatin [Lipitor] 80 mg PO DAILY Empagliflozin [Jardiance] 10 mg PO DAILY Ezetimibe [Zetia] 10 mg PO DAILY Pregabalin [Lyrica] 75 mg PO DAILY Irbesartan [Avapro] 150 mg PO DAILY Discontinued Furosemide [Lasix] 40 mg PO DAILY No Action Insulin Aspart Protam & Aspart [NovoLOG MIX 70-30 Flexpen] 100 unit SQ BID Semaglutide [Ozempic] 1 mg SQ Q7D Discharge Medication List Insulin Aspart Protam & Aspart [NovoLOG MIX 70-30 Flexpen] 100 unit SQ BID 04/09/16 [History] sitaGLIPtin [Januvia] 100 mg PO DAILY 04/09/16 [History] Atorvastatin [Lipitor] 80 mg PO DAILY 01/03/18 [History] Empagliflozin [Jardiance] 10 mg PO DAILY 04/07/22 [History] Ezetimibe [Zetia] 10 mg PO DAILY 04/07/22 [History] Irbesartan [Avapro] 150 mg PO DAILY 04/07/22 [History] Pregabalin [Lyrica] 75 mg PO DAILY 04/07/22 [History] Semaglutide [Ozempic] 1 mg SQ Q7D 04/07/22 [History] Amiodarone [Cordarone] 200 mg PO BID #60 tab 04/09/22 [Rx] Aspirin 81 mg PO DAILY #30 tab 04/09/22 [Rx] Metoprolol Tartrate [Lopressor] 12.5 mg PO BID #60 tab 04/09/22 [Rx] Follow up Appointment(s)/Referral(s): Evans Last MD [Primary Care Provider] - 1-2 days (Please call the office during business hours to schedule a post hospital follow up.) Morena Mosley MD [STAFF PHYSICIAN] - 04/19/22 10:45 am (Device check with Samy) Darshan Lopez MD [STAFF PHYSICIAN] - 1 Week (Office will call with a seperate appointment from the device check.) Reagan Charles MD [REFERRING] - 1 Week (License Registration Examiner for your diabetes mellitus. Patient request not to schedule this appointment) Sosa Garcia MD [STAFF PHYSICIAN] - 1 Week (License Registration Examiner for your diabetes m chavez. Patient request not to schedule this appointment.) Patient Instructions/Handouts: Syncope (DC), Cardiac Loop Recorder Insertion (DC) Activity/Diet/Wound Care/Special Instructions: Heart healthy diet react low carbohydrate diet 1600 kcal per day Activity is restricted till you see your doctor we recommend to check your glucoses 4 times a day, before each meal and at bedtime, keep results in a log book and bring it to your doctor on your appointment date If your glucose less than 70 or more than 400, then call 911 on come to emergency room Discharge Disposition: HOME SELF-CARE
== END 2022-04-09 17:20 | disposition home or self-care (01) | DRG 260 ==
LOC: EC 07:04 → 2SICU 07:23
PROVIDERS: ADMIT Family Medicine; ATTEND Family Medicine
PROC: B2111ZZ Fluoroscopy of Multiple Coronary Arteries using Low Osmolar Contrast (ICD-10-PCS; 2022-04-07)
PROC: B2131ZZ Fluoroscopy of Multiple Coronary Artery Bypass Grafts using Low Osmolar Contrast (ICD-10-PCS; 2022-04-07)
PROC: 4A023N7 Measurement of Cardiac Sampling and Pressure, Left Heart, Percutaneous Approach (ICD-10-PCS; 2022-04-07)
PROC: 0JH602Z Insertion of Monitoring Device into Chest Subcutaneous Tissue and Fascia, Open Approach (ICD-10-PCS; principal; 2022-04-09 09:30)
PROC: 5A2204Z Restoration of Cardiac Rhythm, Single (ICD-10-PCS; principal; 2022-04-09 09:30)
DX: I21.3 ST elevation (STEMI) myocardial infarction of unspecified site (principal); I49.01 Ventricular fibrillation; I46.8 Cardiac arrest due to other underlying condition; I47.2 Ventricular tachycardia; J98.11 Atelectasis; Z68.41 Body mass index [BMI] 40.0-44.9, adult; N17.9 Acute kidney failure, unspecified; G89.29 Other chronic pain; I12.9 Hypertensive chronic kidney disease with stage 1 through stage 4 chronic kidney disease, or unspecified chronic kidney disease; I25.10 Atherosclerotic heart disease of native coronary artery without angina pectoris; I25.2 Old myocardial infarction; I49.3 Ventricular premature depolarization; J44.9 Chronic obstructive pulmonary disease, unspecified; M19.90 Unspecified osteoarthritis, unspecified site; N18.30 Chronic kidney disease, stage 3 unspecified; R56.9 Unspecified convulsions; E11.22 Type 2 diabetes mellitus with diabetic chronic kidney disease; E66.01 Morbid (severe) obesity due to excess calories; Z95.1 Presence of aortocoronary bypass graft; E78.5 Hyperlipidemia, unspecified; G47.30 Sleep apnea, unspecified; R15.9 Full incontinence of feces; I44.0 Atrioventricular block, first degree; M54.9 Dorsalgia, unspecified; M25.519 Pain in unspecified shoulder; R79.1 Abnormal coagulation profile; T38.3X6A Underdosing of insulin and oral hypoglycemic [antidiabetic] drugs, initial encounter; M25.569 Pain in unspecified knee; Z79.02 Long term (current) use of antithrombotics/antiplatelets; Z79.4 Long term (current) use of insulin; Z79.82 Long term (current) use of aspirin; Z79.84 Long term (current) use of oral hypoglycemic drugs; Z79.899 Other long term (current) drug therapy; Z80.42 Family history of malignant neoplasm of prostate; Z82.3 Family history of stroke; Z82.49 Family history of ischemic heart disease and other diseases of the circulatory system; Z82.5 Family history of asthma and other chronic lower respiratory diseases; Z83.3 Family history of diabetes mellitus; Z91.128 Patient's intentional underdosing of medication regimen for other reason; Z91.19 Patient's noncompliance with other medical treatment and regimen; Z95.5 Presence of coronary angioplasty implant and graft; Z86.14 Personal history of Methicillin resistant Staphylococcus aureus infection; Z98.890 Other specified postprocedural states; Z90.89 Acquired absence of other organs; Z83.6 Family history of other diseases of the respiratory system; Z80.52 Family history of malignant neoplasm of bladder
CPT/HCPCS: 71045; 71275; 80048; 80053; 83036; 83735; 84484; 85025; 85379; 85610; 85730; 93005; 93306; 93459; 93880; 93970; 95816; 96374; 99285

== ENCOUNTER → 2022-04-13 | Outpatient (CLI) | payer BC, MEDICARE ==
--- NOTE | 2022-04-13 15:57 | XR ---
EXAMINATION TYPE: XR ankle complete 3 views LT DATE OF EXAM: 04/13/2022 Comparison: None Clinical History: 66-year-old male M25.572 Left ankle pain Findings: Moderate sized plantar heel spur. Small posterior calcaneal spur. Numerous small bone fragments below the medial malleolus suggesting sequela of remote injury. There is some mild circumferential soft ti ssue swelling at the ankle. Some dorsal degenerative spurring at the talonavicular joint. Talar dome is intact. Ankle mortise congruent. No acute fracture, subluxation or dislocation seen. Some addition al bony spurring along the peripheral cortex of the medial malleolus Impression: 1. Mild soft tissue swelling at the ankle. 2. Corticated bone fragments below the medial malleolus suggesting sequela of remote injury. Clinical ly correlate. 3. Additional spurring along the peripheral margin of the medial malleolus may be seen with chronic p osterior tibial tendinopathy. 4. Moderate-sized plantar heel spur. Small posterior calcaneal spur. Some degenerative spurring dorsa l talonavicular joint.
== END | disposition home or self-care (01) ==
LOC: RADXRMAIN 10:25
PROVIDERS: ATTEND Family Medicine
DX: M77.32 Calcaneal spur, left foot (principal); M25.572 Pain in left ankle and joints of left foot

== ENCOUNTER 2022-06-13 15:34 | Observation (INO) | payer BC, MEDICARE ==
[2022-06-13] MEDS ORDERED: diphenhydrAMINE 50 MG/ML 1 ML VIAL IM STA (15:53)
[2022-06-13] MEDS ORDERED: methylPREDNISolone SOD SUCCI 125 MG/2 ML VIAL IV STA (15:54)
[2022-06-13] MEDS ORDERED: FAMOTIDINE 20 MG/2 ML VIAL IV STA (15:54)
[2022-06-13] MEDS ORDERED: diphenhydrAMINE 50 MG/ML 1 ML VIAL IVP STA (15:58)
[2022-06-13] MEDS ORDERED: IPRATROPIUM-ALBUTEROL 3 ML NEB INHALATION STA (16:00)
--- NOTE | 2022-06-13 16:09 | XR ---
EXAMINATION TYPE: XR chest 1V portable DATE OF EXAM: 06/13/2022 COMPARISON: 04/07/2022 HISTORY: Chest pain TECHNIQUE: Single view FINDINGS: Heart and mediastinum are normal. Lungs are clear. Diaphragm is normal. Bony thorax is norm al. The pulmonary vascularity is normal. There are sternal wires. IMPRESSION: No active cardiopulmonary disease. Normal heart. There is improved inspiration compared t o old exam.
[2022-06-13 16:28] LABS: VBG PH 7.35 (7.31-7.41)
[2022-06-13 16:37] LABS: Basophils % (A) 0 %; Eosinophils # (A) 0.1 k/uL (0-0.7); Eosinophils % (A) 2 %; HCT 49.3 % (39.0-53.0); HGB 16.3 gm/dL (13.0-17.5); Lymphocytes # (A) 2.4 k/uL (1.0-4.8); Lymphocytes % (A) 42 %; MCH 32.4 pg (25.0-35.0); MCHC 33.1 g/dL (31.0-37.0); MCV 97.8 fL (80.0-100.0); Mean Platelet Volume 8.1; Monocytes # (A) 0.2 k/uL (0-1.0); Monocytes % (A) 3 %; Neutrophils # (A) 2.9 k/uL (1.3-7.7); Neutrophils % (A) 50 %; Platelet Count 171 k/uL (150-450); RBC 5.04 m/uL (4.30-5.90); WBC 5.7 k/uL (3.8-10.6)
[2022-06-13 16:45] LABS: INR 0.9 (<1.2); Partial Thromboplastin Time 21.9 sec (22.0-30.0); Prothrombin Time 10.4 sec (9.0-12.0)
[2022-06-13] MEDS ORDERED: SODIUM CHLORIDE 0.9% 1,000 ML IV STA (16:45)
[2022-06-13 17:01] LABS: Calcium 9.1 mg/dL (8.4-10.2); Total Bilirubin 0.7 mg/dL (0.2-1.3)
[2022-06-13 17:08] LABS: Magnesium 2.2 mg/dL (1.6-2.3); Potassium 4.8 mmol/L (3.5-5.1)
[2022-06-13] MEDS ORDERED: diphenhydrAMINE 25 MG CAP PO PRN (17:43)
[2022-06-13] MEDS ORDERED: NALOXONE 0.4 MG/ML 1 ML VIAL IV PRN (17:44)
[2022-06-13] MEDS ORDERED: SODIUM CHLORIDE 0.9% 1,000 ML IV SCH (17:45)
--- NOTE | 2022-06-13 17:51 | ED ---
General Adult HPI - General Chief complaint: Shortness of Breath Stated complaint: SOB Time Seen by Provider: 06/13/22 15:45 Source: patient, RN notes reviewed, old records reviewed Mode of arrival: wheelchair Limitations: no limitations - History of Present Illness Initial comments: 66-year-old male presents for acute onset dyspnea. Patient was in his usual state of health. All of a sudden he developed severe dyspnea. He also noticed an erythematous rash throughout his body. According to his he had eaten some peanuts. This is not abnormal for the patient in fact he had eaten the same peanuts yesterday without issue. He's had no new exposures, no new medications. No chest pain. No fever. - Related Data Home Medications Medication Instructions Recorded Confirmed Insulin Aspart Prot/Insuln Asp 75 unit SQ BID 04/09/16 06/13/22 [NovoLOG MIX 70-30 Flexpen] sitaGLIPtin [Januvia] 100 mg PO DAILY 04/09/16 06/13/22 Atorvastatin [Lipitor] 80 mg PO DAILY 01/03/18 06/13/22 Empagliflozin [Jardiance] 10 mg PO DAILY 04/07/22 06/13/22 Ezetimibe [Zetia] 10 mg PO DAILY 04/07/22 06/13/22 Irbesartan [Avapro] 150 mg PO DAILY 04/07/22 06/13/22 Pregabalin [Lyrica] 75 mg PO DAILY 04/07/22 06/13/22 Semaglutide [Ozempic] 1 mg SQ FR 04/07/22 06/13/22 Metoprolol Tartrate [Lopressor] 12.5 mg PO BID 06/13/22 06/13/22 Previous Rx's Medication Instructions Recorded Amiodarone [Cordarone] 200 mg PO BID #60 tab 04/09/22 Aspirin 81 mg PO DAILY #30 tab 04/09/22 Allergies Allergy/AdvReac Type Severity Reaction Status Date / Time pioglitazone [From Actos] Allergy Rash/Hives Verified 06/13/22 16:50 Review of Systems ROS Statement: Those systems with pertinent positive or pertinent negative responses have been documented in the HPI. ROS Other: All systems not noted in ROS Statement are negative. Past Medical History Past Medical History: Coronary Artery Disease (CAD), COPD, Diabetes Mellitus, Hyperlipidemia, Hypertension, Myocardial Infarction ([place]), Osteoarthritis (OA) Additional Past Medical History / Comment(s): Obesity, COPD with a baseline FEV1 of 43% of predicted based on a preop FEV1/spirometry my diabetes mellitus, hypertension, hyperlipidemia, coronary artery disease with previous coronary stenting of the RCA, osteoarthritis, bilateral chronic shoulder and knee pain, chronic back pain. open left leg since February 2017 Last Myocardial Infarction Date:: march 2016 History of Any Multi-Drug Resistant Organisms: MRSA Date of last positivie culture/infection: 2012 MDRO Source:: abdomen, rt.hip, Past Surgical History: Heart Catheterization, Heart Catheterization With Stent, Hernia Repair, Tonsillectomy Additional Past Surgical History / Comment(s): 01/07/12 cardiac stent x2, umbilical hernia repair, L knee arthroscopy, recent cardiac cath. Triple leg vessel left leg January 2017 Past Anesthesia/Blood Transfusion Reactions: Motion Sickness, Postoperative Nausea & Vomiting (PONV) Date of Last Stent Placement:: 01/07/12 Past Psychological History: No Psychological Hx Reported Smoking Status: Never smoker Past Alcohol Use History: Rare Past Drug Use History: None Reported - Past Family History Father Family Medical History: Cancer, COPD, CVA/TIA Additional Family Medical History / Comment(s): Prostate cancer, heart problems. Father of a CVA at age 78yrs. Mother Family Medical History: Diabetes Mellitus, Myocardial Infarction ([place]) Additional Family Medical History / Comment(s): Mother of a massive [place] at the age of 62 yrs. General Exam Limitations: no limitations General appearance: alert, in distress Head exam: Present: atraumatic, normocephalic Eye exam: Present: normal appearance, PERRL ENT exam: Present: normal oropharynx Neck exam: Present: normal inspection. Absent: tenderness, meningismus Respiratory exam: Present: respiratory distress, wheezes, decreased breath sounds Cardiovascular Exam: Present: regular rate, normal rhythm GI/Abdominal exam: Present: soft, distended. Absent: tenderness, guarding, rebound Extremities exam: Present: pedal edema Neurological exam: Present: alert, oriented X3, CN II-XII intact. Absent: motor sensory deficit Psychiatric exam: Present: anxious Skin exam: Present: warm, erythema, urticaria Course Vital Signs 06/13/22 06/13/22 06/13/22 15:37 15:56 16:05 Temperature 98 F Pulse Rate 70 60 62 Respiratory 26 H Rate Blood Pressure 89/58 O2 Sat by Pulse 83 L Oximetry 06/13/22 16:20 Temperature Pulse Rate 62 Respiratory 18 Rate Blood Pressure 122/98 O2 Sat by Pulse 99 Oximetry EKG Findings - EKG Comments: EKG Findings:: Sinus rhythm, right bundle-branch block, no ST segment elevation, rate 66, LA interval 200, QRS duration 121, QTC 446 Medical Decision Making - Medical Decision Making 66-year-old male presenting in distress with severe dyspnea and hypoxia. Patient is erythematous with urticarial rash throughout his entire body. He is hypoxic, hypotensive. Normal heart rate. He is placed on supplemental oxygen, given albuterol, Atrovent, steroids, Benadryl and Pepcid. He has significant improvement almost immediately. No associated chest pain. Vital signs improve. Laboratory testing in the emergency department reveals normal CBC. He has a mildly elevated lactic at 3.1. He has a normal troponin, negative BNP. His d- dimer is elevated and although this is down trending from prior. Previous was 1.6 and at that time he did have CT angiography which was negative this was 2 months ago. Symptoms are most consistent with significant ALLERGIC reaction and anaphylaxis. He will be observed overnight on continue treatment including steroids, Benadryl, Pepcid. Case discussed with Dr. Martínez. - Lab Data Result diagrams: 06/13/22 16:01 06/13/22 16:01 Lab Results 06/13/22 06/13/22 06/13/22 Range/Units 16:01 16:01 16:01 WBC 5.7 (3.8-10.6) k/uL RBC 5.04 (4.30-5.90) m/uL Hgb 16.3 D (13.0-17.5) gm/dL Hct 49.3 (39.0-53.0) % MCV 97.8 (80.0-100.0) fL MCH 32.4 (25.0-35.0) pg MCHC 33.1 (31.0-37.0) g/dL RDW 14.0 (11.5-15.5) % Plt Count 171 (150-450) k/uL MPV 8.1 Neutrophils % 50 % Lymphocytes % 42 % Monocytes % 3 % Eosinophils % 2 % Basophils % 0 % Neutrophils # 2.9 (1.3-7.7) k/uL Lymphocytes # 2.4 (1.0-4.8) k/uL Monocytes # 0.2 (0-1.0) k/uL Eosinophils # 0.1 (0-0.7) k/uL Basophils # 0.0 (0-0.2) k/uL PT 10.4 (9.0-12.0) sec INR 0.9 (<1.2) APTT 21.9 L (22.0-30.0) sec D-Dimer 1.15 H (<0.60) mg/L FEU VBG pH (7.31-7.41) VBG pCO2 (37-51) mmHg VBG HCO3 (24-28) mmol/L Sodium 139 (137-145) mmol/L Potassium 4.8 (3.5-5.1) mmol/L Chloride 103 (98-107) mmol/L Carbon Dioxide 27 (22-30) mmol/L Anion Gap 9 mmol/L BUN 42 H (9-20) mg/dL Creatinine 1.61 H (0.66-1.25) mg/dL Est GFR (CKD-EPI)AfAm 51 (>60 ml/min/1.73 sqM) Est GFR (CKD-EPI)NonAf 44 (>60 ml/min/1.73 sqM) Glucose 169 H (74-99) mg/dL Plasma Lactic Acid Kenny (0.7-2.0) mmol/L Calcium 9.1 (8.4-10.2) mg/dL Magnesium 2.2 (1.6-2.3) mg/dL Total Bilirubin 0.7 (0.2-1.3) mg/dL AST 38 (17-59) U/L ALT 29 (4-49) U/L Alkaline Phosphatase 106 (38-126) U/L Troponin I (0.000-0.034) ng/mL NT-Pro-B Natriuret Pep pg/mL Total Protein 7.0 (6.3-8.2) g/dL Albumin 4.0 (3.5-5.0) g/dL 06/13/22 06/13/22 06/13/22 Range/Units 16:01 16:01 16:01 WBC (3.8-10.6) k/uL RBC (4.30-5.90) m/uL Hgb (13.0-17.5) gm/dL Hct (39.0-53.0) % MCV (80.0-100.0) fL MCH (25.0-35.0) pg MCHC (31.0-37.0) g/dL RDW (11.5-15.5) % Plt Count (150-450) k/uL MPV Neutrophils % % Lymphocytes % % Monocytes % % Eosinophils % % Basophils % % Neutrophils # (1.3-7.7) k/uL Lymphocytes # (1.0-4.8) k/uL Monocytes # (0-1.0) k/uL Eosinophils # (0-0.7) k/uL Basophils # (0-0.2) k/uL PT (9.0-12.0) sec INR (<1.2) APTT (22.0-30.0) sec D-Dimer (<0.60) mg/L FEU VBG pH (7.31-7.41) VBG pCO2 (37-51) mmHg VBG HCO3 (24-28) mmol/L Sodium (137-145) mmol/L Potassium (3.5-5.1) mmol/L Chloride (98-107) mmol/L Carbon Dioxide (22-30) mmol/L Anion Gap mmol/L BUN (9-20) mg/dL Creatinine (0.66-1.25) mg/dL Est GFR (CKD-EPI)AfAm (>60 ml/min/1.73 sqM) Est GFR (CKD-EPI)NonAf (>60 ml/min/1.73 sqM) Glucose (74-99) mg/dL Plasma Lactic Acid Kenny 3.1 H* (0.7-2.0) mmol/L Calcium (8.4-10.2) mg/dL Magnesium (1.6-2.3) mg/dL Total Bilirubin (0.2-1.3) mg/dL AST (17-59) U/L ALT (4-49) U/L Alkaline Phosphatase (38-126) U/L Troponin I <0.012 (0.000-0.034) ng/mL NT-Pro-B Natriuret Pep 120 pg/mL Total Protein (6.3-8.2) g/dL Albumin (3.5-5.0) g/dL 06/13/22 Range/Units 16:04 WBC (3.8-10.6) k/uL RBC (4.30-5.90) m/uL Hgb (13.0-17.5) gm/dL Hct (39.0-53.0) % MCV (80.0-100.0) fL MCH (25.0-35.0) pg MCHC (31.0-37.0) g/dL RDW (11.5-15.5) % Plt Count (150-450) k/uL MPV Neutrophils % % Lymphocytes % % Monocytes % % Eosinophils % % Basophils % % Neutrophils # (1.3-7.7) k/uL Lymphocytes # (1.0-4.8) k/uL Monocytes # (0-1.0) k/uL Eosinophils # (0-0.7) k/uL Basophils # (0-0.2) k/uL PT (9.0-12.0) sec INR (<1.2) APTT (22.0-30.0) sec D-Dimer (<0.60) mg/L FEU VBG pH 7.35 (7.31-7.41) VBG pCO2 50 (37-51) mmHg VBG HCO3 28 (24-28) mmol/L Sodium (137-145) mmol/L Potassium (3.5-5.1) mmol/L Chloride (98-107) mmol/L Carbon Dioxide (22-30) mmol/L Anion Gap mmol/L BUN (9-20) mg/dL Creatinine (0.66-1.25) mg/dL Est GFR (CKD-EPI)AfAm (>60 ml/min/1.73 sqM) Est GFR (CKD-EPI)NonAf (>60 ml/min/1.73 sqM) Glucose (74-99) mg/dL Plasma Lactic Acid Kenny (0.7-2.0) mmol/L Calcium (8.4-10.2) mg/dL Magnesium (1.6-2.3) mg/dL Total Bilirubin (0.2-1.3) mg/dL AST (17-59) U/L ALT (4-49) U/L Alkaline Phosphatase (38-126) U/L Troponin I (0.000-0.034) ng/mL NT-Pro-B Natriuret Pep pg/mL Total Protein (6.3-8.2) g/dL Albumin (3.5-5.0) g/dL Critical Care Time Critical Care Time: Yes Total Critical Care Time: 35 Disposition Clinical Impression: Dyspnea, Allergic reaction Disposition: ADMITTED IP TO THIS [facility] Condition: Stable Is patient prescribed a controlled substance at d/c from ED?: No Referrals: Evans Last MD [Primary Care Provider] - 1-2 days Time of Disposition: 17:51
[2022-06-13] MEDS: IPRATROPIUM-ALBUTEROL 3 ML NEB INHALATION SCH (19:34)
[2022-06-13] MEDS: AMIODARONE 200 MG TAB PO SCH (23:47)
[2022-06-13] MEDS: METOPROLOL TARTRATE 12.5 MG TAB PO SCH (23:47)
[2022-06-14] MEDS: methylPREDNISolone SOD SUCCI 125 MG/2 ML VIAL IV SCH ×2 (01:37→08:37)
[2022-06-14 01:58] LABS: Glucose,Whole Blood 316 mg/dL (70-110)
[2022-06-14] MEDS: INSULN ASP PRT/INSULIN ASPART 100 UNIT/ML 10 ML VIAL SQ SCH ×2 (01:58→08:37)
[2022-06-14 07:18] LABS: Glucose,Whole Blood 219 mg/dL (70-110)
[2022-06-14] MEDS: IPRATROPIUM-ALBUTEROL 3 ML NEB INHALATION SCH ×2 (08:12→11:21)
[2022-06-14] MEDS: METOPROLOL TARTRATE 12.5 MG TAB PO SCH (08:37)
[2022-06-14] MEDS: AMIODARONE 200 MG TAB PO SCH (08:37)
[2022-06-14] MEDS ORDERED: FAMOTIDINE 20 MG/2 ML VIAL IV SCH (09:00)
[2022-06-14] MEDS ORDERED: ASPIRIN 81 MG PO SCH (09:00)
[2022-06-14] MEDS ORDERED: LOSARTAN 50 MG TAB PO SCH (09:00)
[2022-06-14 10:17] LABS: African American GFR (CKD) 61 (>60 ml/min/1.73 sqM); Anion Gap 6 mmol/L; Blood Urea Nitrogen 42 mg/dL (9-20); Calcium 8.4 mg/dL (8.4-10.2); Carbon Dioxide 25 mmol/L (22-30); Chloride 105 mmol/L (98-107); Glucose 252 mg/dL (74-99); Non-African American GFR(CKD) 53 (>60 ml/min/1.73 sqM); Potassium 5.4 mmol/L (3.5-5.1); Sodium 136 mmol/L (137-145)
--- NOTE | 2022-06-14 11:31 | P.HPIM ---
History of Present Illness Patient is pleasant 61-year-old male came in for possible ALLERGIC reaction patient the had an episode of severe shortness of breath and hypoxemia with the his pulse oximetry oxygen levels going to as low as 50. All his symptoms sta rted when he was working in his garage. By the time he came out. Patient has a diffuse rash consistent with ALLERGY. When I evaluated the patient and there was no rash. Patient the symptoms of shortness of breath resolved patient is on room air. Patient's symptoms has today started After Eating Peanuts. Patient Never Had Any ALLERGIC to peanuts in the past patient was able PE to peanut bar the day before his symptoms without any problems. Inciting allergen is not clear. Patient was not started on any medications recently. Patient is found to have mildly elevated creatinine of 61.61 appears to be acute renal failure Baseline creatinine appears to be around 1.2 patient was receiving IV fluids creatinine improved to 1.4 although his serum potassium was high at 5.4 and patient is on angiotensin receptor rachel. Patient denied any fever chills patient and tongue swelling. REVIEW OF SYSTEMS: CONSTITUTIONAL: No fever, no malaise, no fatigue. HEENT: No recent visual problems or hearing problems. Denied any sore throat. CARDIOVASCULAR: No chest pain, orthopnea, PND, no palpitations, no syncope. PULMONARY: no cough, no hemoptysis. GASTROINTESTINAL: No diarrhea, no nausea, no vomiting, no abdominal pain. NEUROLOGICAL: No headaches, no weakness, no numbness. HEMATOLOGICAL: Denies any bleeding or petechiae. GENITOURINARY: Denies any burning micturition, frequency, or urgency. MUSCULOSKELETAL/RHEUMATOLOGICAL: Denies any joint pain, swelling, or any muscle pain. ENDOCRINE: Denies any polyuria or polydipsia. The rest of the 14-point review of systems is negative. PHYSICAL EXAMINATION: GENERAL: The patient is alert and oriented x3, not in any acute distress. Obese HEENT: Pupils are round and equally reacting to light. EOMI. No scleral icterus. No conjunctival pallor. Normocephalic, atraumatic. No pharyngeal erythema. No thyromegaly. CARDIOVASCULAR: S1 and S2 present. No murmurs, rubs, or gallops. PULMONARY: Chest is clear to auscultation, no wheezing or crackles. ABDOMEN: Soft, nontender, nondistended, normoactive bowel sounds. No palpable organomegaly. MUSCULOSKELETAL: No joint swelling or deformity. EXTREMITIES: No cyanosis, clubbing, chronic bilateral lower extremity edema with the venous stasis dermatosis NEUROLOGICAL: Gross neurological examination did not reveal any focal deficits. SKIN: No rashes. Assessment and plan -ALLERGIC reaction/angioedema: Symptoms resolve the patient doesn't have any wheezing at this time. Inciting ALLERGIC is not clear at this time, can be peanut ALLERGY. Patient was given Solu-Medrol with significant improvement in symptoms patient will be discharged on as needed prednisone and Claritin. -Hyperkalemia secondary to her Batool tensive receptor rachel since patient received IV fluids I believe his potassium may have come down I will recommend him low potassium diet upon discharge and will repeat basic metabolic profile again tomorrow. -Acute renal failure secondary to ALLERGIC reaction including azotemia secondary to ALLERGIC reaction received IV fluids patient will be discharged with repeat basic metabolic profile for tomorrow -Type 2 diabetes mellitus: Patient will be resumed on his home regimen his blood sugars are expected to be high as couple days because of the systemic steroids he received -Hypertension -Hyperlipidemia -Obesity -Coronary artery disease -COPD without any acute exacerbation Patient will be discharged today Past Medical History Past Medical History: Coronary Artery Disease (CAD), COPD, Diabetes Mellitus, Hyperlipidemia, Hypertension, Myocardial Infarction ([place]), Osteoarthritis (OA) Additional Past Medical History / Comment(s): Obesity, COPD with a baseline FEV1 of 43% of predicted based on a preop FEV1/spirometry my diabetes mellitus, hypertension, hyperlipidemia, coronary artery disease with previous coronary stenting of the RCA, osteoarthritis, bilateral chronic shoulder and knee pain, chronic back pain. open left leg since February 2017 Last Myocardial Infarction Date:: march 2016 History of Any Multi-Drug Resistant Organisms: MRSA Date of last positivie culture/infection: 2012 MDRO Source:: abdomen, rt.hip, Past Surgical History: Heart Catheterization, Heart Catheterization With Stent, Hernia Repair, Tonsillectomy Additional Past Surgical History / Comment(s): 01/07/12 cardiac stent x2, umbilical hernia repair, L knee arthroscopy, recent cardiac cath. Triple bypass January 2017 Past Anesthesia/Blood Transfusion Reactions: Motion Sickness, Postoperative Nausea & Vomiting (PONV) Date of Last Stent Placement:: 01/07/12 Past Psychological History: No Psychological Hx Reported Additional Psychological History / Comment(s): Pt resides with his spouse. He uses no assistive device. 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 Smoking Status: Never smoker Past Alcohol Use History: Rare Past Drug Use History: None Reported - Past Family History Father Family Medical History: Cancer, COPD, CVA/TIA Additional Family Medical History / Comment(s): Prostate cancer, heart problems. Father of a CVA at age 78yrs. Mother Family Medical History: Diabetes Mellitus, Myocardial Infarction ([place]) Additional Family Medical History / Comment(s): Mother of a massive [place] at the age of 62 yrs. Medications and Allergies Home Medications Medication Instructions Recorded Confirmed Type Insulin Aspart Prot/Insuln Asp 75 unit SQ BID 04/09/16 06/13/22 History [NovoLOG MIX 70-30 Flexpen] sitaGLIPtin [Januvia] 100 mg PO DAILY 04/09/16 06/13/22 History Atorvastatin [Lipitor] 80 mg PO DAILY 01/03/18 06/13/22 History Empagliflozin [Jardiance] 10 mg PO DAILY 04/07/22 06/13/22 History Ezetimibe [Zetia] 10 mg PO DAILY 04/07/22 06/13/22 History Irbesartan [Avapro] 150 mg PO DAILY 04/07/22 06/13/22 History Pregabalin [Lyrica] 75 mg PO DAILY 04/07/22 06/13/22 History Semaglutide [Ozempic] 1 mg SQ FR 04/07/22 06/13/22 History Amiodarone [Cordarone] 200 mg PO BID #60 tab 04/09/22 06/13/22 Rx Aspirin 81 mg PO DAILY #30 tab 04/09/22 06/13/22 Rx Metoprolol Tartrate [Lopressor] 12.5 mg PO BID 06/13/22 06/13/22 History Loratadine [Claritin] 10 mg PO DAILY #30 tab 06/14/22 Rx predniSONE [Deltasone] 20 mg PO DAILY PRN #20 tab 06/14/22 Rx Allergies Allergy/AdvReac Type Severity Reaction Status Date / Time pioglitazone [From Actos] Allergy Rash/Hives Verified 06/13/22 16:50 Physical Exam Vitals: Vital Signs Temp Pulse Pulse Resp BP BP Pulse Ox 06/14/22 11:24 69 06/14/22 08:22 74 06/14/22 08:13 71 97 06/14/22 04:50 97.7 F 68 17 123/56 97 06/14/22 02:00 16 06/14/22 01:35 98.6 F 74 16 151/76 96 06/14/22 00:22 74 93 H 135/58 93 L 06/13/22 19:46 61 06/13/22 19:36 58 L 06/13/22 18:37 70 20 122/54 98 06/13/22 16:20 62 18 122/98 99 06/13/22 16:05 62 06/13/22 15:56 60 06/13/22 15:37 98 F 70 26 H 89/58 83 L Intake and Output 06/13/22 06/14/22 06/14/22 22:59 06:59 14:59 Other: Voiding Method Toilet Toilet Bedside Commode Urinal Weight 146.964 kg Results CBC & Chem 7: 06/13/22 16:01 06/14/22 09:41 Labs: Abnormal Lab Results - Last 24 Hours (Table) 06/13/22 06/13/22 06/13/22 Range/Units 16:01 16:01 16:01 APTT 21.9 L (22.0-30.0) sec D-Dimer 1.15 H (<0.60) mg/L FEU Sodium (137-145) mmol/L Potassium (3.5-5.1) mmol/L BUN 42 H (9-20) mg/dL Creatinine 1.61 H (0.66-1.25) mg/dL Glucose 169 H (74-99) mg/dL POC Glucose (mg/dL) (70-110) mg/dL Plasma Lactic Acid Kenny 3.1 H* (0.7-2.0) mmol/L 06/14/22 06/14/22 06/14/22 Range/Units 01:56 07:16 09:41 APTT (22.0-30.0) sec D-Dimer (<0.60) mg/L FEU Sodium 136 L (137-145) mmol/L Potassium 5.4 H (3.5-5.1) mmol/L BUN 42 H (9-20) mg/dL Creatinine 1.40 H (0.66-1.25) mg/dL Glucose 252 H (74-99) mg/dL POC Glucose (mg/dL) 316 H 219 H (70-110) mg/dL Plasma Lactic Acid Kenny (0.7-2.0) mmol/L Thrombosis Risk Factor Assmnt - Choose All That Apply Each Risk Factor Represents 2 Points: Age 61-74 years Thrombosis Risk Factor Assessment Total Risk Factor Score: 2 Thrombosis Risk Factor Assessment Level: Low Risk
--- NOTE | 2022-06-14 11:31 | P.DS ---
Providers Date of admission: 06/13/22 17:45 Attending physician: Gaurav Jean-Baptiste Primary care physician: Evans Last [facility] Course: Refer to my history of present illness for further details Patient Condition at Discharge: Stable Plan - Discharge Summary Discharge Rx Participant: Yes New Discharge Prescriptions: New predniSONE [Deltasone] 20 mg PO DAILY PRN #20 tab PRN Reason: Allergic Reaction Loratadine [Claritin] 10 mg PO DAILY #30 tab Continue sitaGLIPtin [Januvia] 100 mg PO DAILY Insulin Aspart Prot/Insuln Asp [NovoLOG MIX 70-30 Flexpen] 75 unit SQ BID Atorvastatin [Lipitor] 80 mg PO DAILY Semaglutide [Ozempic] 1 mg SQ FR Empagliflozin [Jardiance] 10 mg PO DAILY Ezetimibe [Zetia] 10 mg PO DAILY Amiodarone [Cordarone] 200 mg PO BID #60 tab Metoprolol Tartrate [Lopressor] 12.5 mg PO BID Pregabalin [Lyrica] 75 mg PO DAILY Irbesartan [Avapro] 150 mg PO DAILY Aspirin 81 mg PO DAILY #30 tab Discharge Medication List Insulin Aspart Prot/Insuln Asp [NovoLOG MIX 70-30 Flexpen] 75 unit SQ BID 04/09/16 [History] sitaGLIPtin [Januvia] 100 mg PO DAILY 04/09/16 [History] Atorvastatin [Lipitor] 80 mg PO DAILY 01/03/18 [History] Empagliflozin [Jardiance] 10 mg PO DAILY 04/07/22 [History] Ezetimibe [Zetia] 10 mg PO DAILY 04/07/22 [History] Irbesartan [Avapro] 150 mg PO DAILY 04/07/22 [History] Pregabalin [Lyrica] 75 mg PO DAILY 04/07/22 [History] Semaglutide [Ozempic] 1 mg SQ FR 04/07/22 [History] Amiodarone [Cordarone] 200 mg PO BID #60 tab 04/09/22 [Rx] Aspirin 81 mg PO DAILY #30 tab 04/09/22 [Rx] Metoprolol Tartrate [Lopressor] 12.5 mg PO BID 06/13/22 [History] Loratadine [Claritin] 10 mg PO DAILY #30 tab 06/14/22 [Rx] predniSONE [Deltasone] 20 mg PO DAILY PRN #20 tab 06/14/22 [Rx] Follow up Appointment(s)/Referral(s): Evans Last MD [Primary Care Provider] - 06/16/22 2:10 pm Ambulatory/Diagnostic Orders: Basic Metabolic Panel [LAB.AMB] Time Frame: 1 Day, Location: None Selected Patient Instructions/Handouts: Prednisone (By mouth), Loratadine (By mouth) Activity/Diet/Wound Care/Special Instructions: Diabetic, cardiac, low potassium diet
[2022-06-14 11:38] VITALS: BP 143/68; PULSE 70; RESP 20; TEMP 98
[2022-06-15] MEDS ORDERED: PREGABALIN 75 MG CAP PO SCH (09:00)
[2022-06-15] MEDS ORDERED: LINAGLIPTIN 5 MG TABLET PO SCH (09:00)
[2022-06-15] MEDS ORDERED: NON FORMULARY DRUG (Empagliflozin [Jardiance] 10 MG Tablet) PO SCH (09:00)
[2022-06-15] MEDS ORDERED: FAMOTIDINE 20 MG TAB PO SCH (09:00)
[2022-06-15] MEDS ORDERED: ATORVASTATIN 80 MG TAB PO SCH (09:00)
[2022-06-15] MEDS ORDERED: EZETIMIBE 10 MG TAB PO SCH (09:00)
[2022-06-18] MEDS ORDERED: NON FORMULARY DRUG (Semaglutide [Ozempic] 1 MG/0.75 ML Each) SQ SCH (09:00)
== END 2022-06-14 12:18 | disposition home or self-care (01) ==
LOC: EC 15:34 → 6NMEDSUR 17:45 → 5NMEDONC 21:43
PROVIDERS: ADMIT Hospitalist; ATTEND Hospitalist
DX: N17.9 Acute kidney failure, unspecified (principal); R09.02 Hypoxemia; R06.02 Shortness of breath; R21 Rash and other nonspecific skin eruption; T78.3XXA Angioneurotic edema, initial encounter; R79.89 Other specified abnormal findings of blood chemistry; E66.9 Obesity, unspecified; Z68.41 Body mass index [BMI] 40.0-44.9, adult; E11.9 Type 2 diabetes mellitus without complications; I10 Essential (primary) hypertension; E78.5 Hyperlipidemia, unspecified; E87.5 Hyperkalemia; I25.10 Atherosclerotic heart disease of native coronary artery without angina pectoris; J44.9 Chronic obstructive pulmonary disease, unspecified; M19.90 Unspecified osteoarthritis, unspecified site; I25.2 Old myocardial infarction; G89.29 Other chronic pain; M25.512 Pain in left shoulder; M25.511 Pain in right shoulder; M25.562 Pain in left knee; M25.561 Pain in right knee; Z86.14 Personal history of Methicillin resistant Staphylococcus aureus infection; Z95.5 Presence of coronary angioplasty implant and graft; Z95.1 Presence of aortocoronary bypass graft; Z98.890 Other specified postprocedural states; Z80.42 Family history of malignant neoplasm of prostate; Z82.49 Family history of ischemic heart disease and other diseases of the circulatory system; Z79.84 Long term (current) use of oral hypoglycemic drugs; Z79.82 Long term (current) use of aspirin; Z79.4 Long term (current) use of insulin; Z79.899 Other long term (current) drug therapy; Z88.8 Allergy status to other drugs, medicaments and biological substances; Z82.3 Family history of stroke; Z82.5 Family history of asthma and other chronic lower respiratory diseases; Z83.3 Family history of diabetes mellitus
CPT/HCPCS: 96376; 96361; 96374; 96375; 99285; 36415; 94640 ×3; 94760; 93005; 85379; 83880; 80053; 80048; 82803; 83605; 83735; 84484; 85025; 85610; 85730; 71045; G0378 ×3; J1200; J2930 ×2

== ENCOUNTER 2022-09-02 06:49 | Day surgery (SDC) | payer BC, MEDICARE ==
[2022-08-31 15:40] VITALS: BMI 44.7
[~2022-09-02 06:49] MED LIST changes: -ALBUMIN HUMAN 25% 50 ML IV ONE; -ALBUMIN HUMAN 5% 500 ML IVPB ONE; -ASPIRIN 325 MG TAB PO ONE; -ATORVASTATIN 10 MG TAB PO ONE; -CALCIUM CHLORIDE 100 MG/ML 10 ML SYRINGE IV ONE; -CHLORHEXIDINE GLUCONATE 15 ML CUP MUCOUS MEM ONE; -CLEVIDIPINE BUTYRATE 25 MG in EMPTY BAG 1 BAG IV ONE; -HEPARIN SODIUM 1,000 UNIT/ML VIAL IV ONE; -HEPARIN SODIUM,PORCINE 5,000 UNIT in SODIUM CHLORIDE 0.9% 500 ML IV ONE; -INSULIN REGULAR 100 UNIT in SODIUM CHLORIDE 0.9% 100 ML IV ONE; -LACTATED RINGERS 1,000 ML IV ONE; +LACTATED RINGERS 1,000 ML IV SCH; -MAGNESIUM SULFATE MG 500 MG/ML VIAL IV ONE; -METOPROLOL TARTRATE 25 MG TAB PO ONE; -MUPIROCIN 2% OINT 22 GM TUBE NASAL ONE; -NITROGLYCERIN-D5W PMX 25 MG/250 ML BTL IV ONE; -NITROGLYCERIN-D5W PMX 50 MG in DEXTROSE/WATER 1 250ML.BAG IV ONE; -NOREPINEPHRINE 4 MG in SODIUM CHLORIDE 0.9% 250 ML IV ONE; -PAPAVERINE 360 MG in SODIUM CHLORIDE 0.9% 90 ML IV ONE; -PHENYLEPHRINE 40 MG in SODIUM CHLORIDE 0.9% 250 ML IV ONE; -PHENYLEPHRINE-0.9% NACL SYG 1 MG/10 ML SYRINGE IV ONE; -PROPOFOL 50 ML IV ONE; -PROTAMINE SULFATE 10 MG/ML 25 ML VIAL IV ONE; -PROTAMINE SULFATE 250 MG in EMPTY BAG 1 BAG IV ONE; -SODIUM BICARB 8.4% 50 ML SYR (1 MEQ/ML) IV ONE; -SODIUM CHLORIDE 0.9% 1,000 ML IV ONE; -ceFAZolin 1,000 MG in SODIUM CHLORIDE 0.9% IRRIGATIO 1,000 ML IRRIGATION ONE; -ceFAZolin 2,000 MG in SODIUM CHLORIDE 0.9% 30 ML IVPB ONE; -ceFAZolin 3 GM in SODIUM CHLORIDE 0.9% 30 ML IVPB ONE
[2022-09-02] MEDS ORDERED: PROPOFOL 10 MG/ML 20 ML VIAL IV ONE (07:39)
--- NOTE | 2022-09-02 07:39 | P.GSHP ---
History of Present Illness H&P Date: 09/02/22 CHIEF COMPLAINT: Colon screen HISTORY OF PRESENT ILLNESS: The patient is a 66-year-old male who presents for colon screen. Lower endoscopy was offered for further evaluation and management. PAST MEDICAL HISTORY: Please see list. PAST SURGICAL HISTORY: Please see list. MEDICATIONS: Please see list. ALLERGIES: Please see list. SOCIAL HISTORY: No illicit drug use FAMILY HISTORY: No reports of Crohn disease or ulcerative colitis. REVIEW OF ORGAN SYSTEMS: CONSTITUTIONAL: No reports of fevers or chills. PHYSICAL EXAM: VITAL SIGNS: Stable GENERAL: Well-developed pleasant in no acute distress. HEENT: No scleral icterus. Extraocular movements grossly intact. Moist buccal mucosa. NECK: Supple without lymphadenopathy. CHEST: Unlabored respirations. Equal bilateral excursions. CARDIOVASCULAR: Regular rate and rhythm. Distal 2+ pulses. ABDOMEN: Soft, nontender, nondistended. MUSCULOSKELETAL: No clubbing, cyanosis, or edema. ASSESSMENT: 1. Colon screen. PLAN: 1. Recommend proceeding with a lower endoscopy Past Medical History Past Medical History: Coronary Artery Disease (CAD), COPD, Diabetes Mellitus, Hyperlipidemia, Hypertension, Myocardial Infarction ([place]), Osteoarthritis (OA) Additional Past Medical History / Comment(s): Obesity, COPD, uses a CPAP, insulin controlled diabetic, osteoarthritis, bilateral chronic shoulder and knee pain, chronic back pain. Last Myocardial Infarction Date:: march 2016 History of Any Multi-Drug Resistant Organisms: MRSA Date of last positivie culture/infection: 2012 MDRO Source:: abdomen, rt.hip, Past Surgical History: Coronary Bypass/CABG, Heart Catheterization, Heart Catheterization With Stent, Hernia Repair, Tonsillectomy Additional Past Surgical History / Comment(s): 01/07/12 cardiac stent x2, umbilical hernia repair, L knee arthroscopy, recent cardiac cath. Triple bypass January 2017. Past Anesthesia/Blood Transfusion Reactions: Motion Sickness, Postoperative Nausea & Vomiting (PONV) Additional Past Anesthesia/Blood Transfusion Reaction / Comment(s): Slow to wake up after surgery. Date of Last Stent Placement:: 01/07/12 Smoking Status: Never smoker - Past Family History Father Family Medical History: Cancer, COPD, CVA/TIA Additional Family Medical History / Comment(s): Prostate cancer, heart problems. Father of a CVA at age 78yrs. Mother Family Medical History: Diabetes Mellitus, Myocardial Infarction ([place]) Additional Family Medical History / Comment(s): Mother of a massive [place] at the age of 62 yrs. Medications and Allergies Home Medications Medication Instructions Recorded Confirmed Type Insulin Aspart Prot/Insuln Asp 75 unit SQ BID 04/09/16 09/02/22 History [NovoLOG MIX 70-30 Flexpen] sitaGLIPtin [Januvia] 100 mg PO DAILY 04/09/16 08/31/22 History Atorvastatin [Lipitor] 80 mg PO DAILY 01/03/18 08/31/22 History Empagliflozin [Jardiance] 10 mg PO DAILY 04/07/22 08/31/22 History Ezetimibe [Zetia] 10 mg PO DAILY 04/07/22 08/31/22 History Irbesartan [Avapro] 150 mg PO DAILY 04/07/22 08/31/22 History Pregabalin [Lyrica] 75 mg PO DAILY 04/07/22 08/31/22 History Semaglutide [Ozempic] 1 mg SQ FR 04/07/22 09/02/22 History Amiodarone [Cordarone] 200 mg PO BID #60 tab 04/09/22 08/31/22 Rx Aspirin 81 mg PO DAILY #30 tab 04/09/22 08/31/22 Rx Metoprolol Tartrate [Lopressor] 12.5 mg PO BID 06/13/22 09/02/22 History Loratadine [Claritin] 10 mg PO DAILY #30 tab 06/14/22 08/31/22 Rx Allergies Allergy/AdvReac Type Severity Reaction Status Date / Time pioglitazone [From Actos] Allergy Rash/Hives Verified 09/02/22 07:13
[2022-09-02 07:42] VITALS: TEMP 98
[2022-09-02 07:42] LABS: Glucose,Whole Blood 146 mg/dL (70-110)
--- NOTE | 2022-09-02 08:00 | P.OP ---
Date of Procedure: 09/02/22 Description of Procedure: PREOPERATIVE DIAGNOSIS: Colonoscopy screening POSTOPERATIVE DIAGNOSIS: Tubular adenoma descending colon Sigmoid diverticulosis OPERATION: Colonoscopy to the ileocecal valve and appendiceal orifice, cecum Colonoscopy with hot snare polypectomy SURGEON: Joanna Feng MD. ANESTHESIA: MAC. INDICATIONS: The patient is an 66-year-old male who presents for his first colonoscopy. Benefits and risks were described and informed consent was obtained. DESCRIPTION OF PROCEDURE: The patient had undergone Sutab prep. The patient had been brought into the operating room and laid in the left lateral decubitus position. After adequate intravenous sedation, the rectum was examined with 2% lidocaine jelly. The prostate was unremarkable. No external hemorrhoids were encountered. The rectal tone was within normal limits. No lesions were palpated in the rectal vault. An Olympus colonoscope was advanced until the cecum, ileocecal valve and appendiceal orifice were clearly viewed. The prep was fair. Sigmoid diverticulosis was encountered. Colonic polyps were found and removed. No evidence of focal colitis was found. Retroflexion of the scope demonstrated grade 2 internal hemorrhoids without active bleeding or inflammation. The colon was desufflated. The patient had tolerated the procedure well. Withdrawal time was over 6 minutes. FINDINGS: Aronchick preparation quality scale 1 (1-5) Internal hemorrhoids, grade 1 No external hemorrhoids No arteriovenous malformations. Multiple dilated venous vessels Sigmoid diverticulosis Removal of 1 polyp: - Snare polypectomy 40 cm from the anal verge, 5 mm tubulovillous adenoma polyp, descending colon No focal colitis. RECOMMENDATIONS: Repeat colonoscopy 3 years, 2024 Plan - Discharge Summary Discharge Rx Participant: Yes New Discharge Prescriptions: Continue sitaGLIPtin [Januvia] 100 mg PO DAILY Insulin Aspart Prot/Insuln Asp [NovoLOG MIX 70-30 Flexpen] 75 unit SQ BID Atorvastatin [Lipitor] 80 mg PO DAILY Semaglutide [Ozempic] 1 mg SQ FR Empagliflozin [Jardiance] 10 mg PO DAILY Ezetimibe [Zetia] 10 mg PO DAILY Amiodarone [Cordarone] 200 mg PO BID #60 tab Metoprolol Tartrate [Lopressor] 12.5 mg PO BID Loratadine [Claritin] 10 mg PO DAILY #30 tab Pregabalin [Lyrica] 75 mg PO DAILY Irbesartan [Avapro] 150 mg PO DAILY Aspirin 81 mg PO DAILY #30 tab Discharge Medication List Insulin Aspart Prot/Insuln Asp [NovoLOG MIX 70-30 Flexpen] 75 unit SQ BID 04/09/16 [History] sitaGLIPtin [Januvia] 100 mg PO DAILY 04/09/16 [History] Atorvastatin [Lipitor] 80 mg PO DAILY 01/03/18 [History] Empagliflozin [Jardiance] 10 mg PO DAILY 04/07/22 [History] Ezetimibe [Zetia] 10 mg PO DAILY 04/07/22 [History] Irbesartan [Avapro] 150 mg PO DAILY 04/07/22 [History] Pregabalin [Lyrica] 75 mg PO DAILY 04/07/22 [History] Semaglutide [Ozempic] 1 mg SQ FR 04/07/22 [History] Amiodarone [Cordarone] 200 mg PO BID #60 tab 04/09/22 [Rx] Aspirin 81 mg PO DAILY #30 tab 04/09/22 [Rx] Metoprolol Tartrate [Lopressor] 12.5 mg PO BID 06/13/22 [History] Loratadine [Claritin] 10 mg PO DAILY #30 tab 06/14/22 [Rx] Follow up Appointment(s)/Referral(s): Joanna Feng MD [STAFF PHYSICIAN] - As Needed Patient Instructions/Handouts: Colorectal Polyps (GEN), Diverticulosis Diet (GEN), Diverticulosis (DC) Activity/Diet/Wound Care/Special Instructions: Repeat colonoscopy in 3 years, 2024 Discharge Disposition: HOME SELF-CARE
[2022-09-02 08:16] VITALS: BP 111/67; PULSE 66; RESP 16
== END 2022-09-02 08:48 | disposition home or self-care (01) ==
LOC: ORWHC2ENDO 06:49
PROVIDERS: ATTEND Surgery Plastic and Reconstructive Surgery
DX: Z12.11 Encounter for screening for malignant neoplasm of colon (principal); D12.4 Benign neoplasm of descending colon; K64.0 First degree hemorrhoids; K57.30 Diverticulosis of large intestine without perforation or abscess without bleeding; I25.10 Atherosclerotic heart disease of native coronary artery without angina pectoris; J44.9 Chronic obstructive pulmonary disease, unspecified; E11.9 Type 2 diabetes mellitus without complications; E78.5 Hyperlipidemia, unspecified; I10 Essential (primary) hypertension; I25.2 Old myocardial infarction; M19.90 Unspecified osteoarthritis, unspecified site; G47.33 Obstructive sleep apnea (adult) (pediatric); E66.9 Obesity, unspecified; Z68.41 Body mass index [BMI] 40.0-44.9, adult; M19.011 Primary osteoarthritis, right shoulder; M19.012 Primary osteoarthritis, left shoulder; Z79.899 Other long term (current) drug therapy; Z79.4 Long term (current) use of insulin; Z79.82 Long term (current) use of aspirin; Z82.49 Family history of ischemic heart disease and other diseases of the circulatory system; Z95.1 Presence of aortocoronary bypass graft; Z90.89 Acquired absence of other organs; Z98.890 Other specified postprocedural states; Z80.42 Family history of malignant neoplasm of prostate
CPT/HCPCS: 88305; 45385; J2704